=== PATIENT | female | born 1960 | race Caucasian/White ===

== ENCOUNTER 2018-02-28 23:58 | Emergency (ER) | payer BC, OTHER ==
[~2018-02-28] VITALS: Ht 156.2 cm; Wt 71.2 kg
[~2018-02-28 23:58] MED LIST: AMBIEN5 MG PO; ASPIR 8181 MG PO; ASTELIN137 MCG NS; ATORVASTATIN CA20 MG PO; BECONASE AQ25 GM NS; CALCIUM +D & M1 EACH PO; CALCIUM 600 +1 EAC2 PO; CYCLOBENZAPRINE10 MG PO; FLORAJEN460 MG PO; HYDROXYZINE HCL25 MG PO; LAMICTAL100 MG PO; LEVSIN0.125 MG PO; MEDROL DOSE PACK; MEDROL DOSE PACK PO; NASONEX17 GM; PANTOPRAZOLE SO40 MG PO; REFRESH OPTIVE15 ML OU; TYLENOL WITH C1 EACH PO; VALTREX500 MG PO; VITAMIN B-121000 MC2 SL; Z.0.AMITRIPTYLINE H5 PO; Z.0.ATIVAN0.5 MG PO; Z.0.FLOMAX0.4 MG PO; Z.0.FLONASE16 GM; Z.0.PRILOSEC20 MG PO; Z.0.TOPROL XL25 MG PO; ZANTAC150 MG PO; ZOFRAN ODT4 MG SL; ZYRTEC10 M3 PO; [UNRECOGNIZED DRUG - OTHER]
--- OUTSIDE RECORDS SUMMARY | 2018-03-01 00:02 | XMS REPORT | Clinical Summary ---
Author Author CORI [facility] Organization [facility] Address Unknown Phone Unavailable Care Team Providers Care Mica Inspector Name Role Phone [place] Jorge Stewartsantosh SALAS PCP Unavailable Allergies Comments Active Allergy Reactions Severity Noted Date Dizziness, Rash, Headache Nitazoxanide Rash Low 12/13/2014 Sulfamethoxazole-Trimetho Hives High 12/10/2014 prim Bandaids--itching Adhesive Tape 12/13/2014 Hives Ciprofloxacin 12/13/2014 Clindamycin Hcl Hives High 12/10/2014 dizziness Clonazepam (Bulk) 10/29/2015 Dizziness, Rash Dicyclomine 12/13/2014 Severe dizziness Esomeprazole Magnesium Other (See 12/10/2014 Comments) Norfloxacin Hives 12/13/2014 Eggplant (from allergy testing) and Papaya (itching) Other 12/13/2014 Quinolones Hives High 12/10/2014 Hydrocodone-Acetaminophen Rash Low 10/29/2015 Medications End Date Status Medication Sig Dispensed Refills Start Date Active omeprazole (PRILOSEC) 40 Take 40 mg by 0 MG capsule mouth 2 (two) times daily . Active LORazepam (ATIVAN) 0.5 MG Take 0.5 mg 0 tablet by mouth every 8 (eight) hours as needed for Anxiety. Active metoprolol (TOPROL-XL) 25 Take 25 mg by 0 MG 24 hr tablet mouth daily. Active tamsulosin (FLOMAX) 0.4 Take 0.4 mg 0 mg Cp24 24 hr capsule by mouth daily 2 caps QHS . Active azelastine (ASTELIN) 137 2 sprays by 0 mcg (0.1 %) nasal spray Nasal route 2 (two) times daily Use in each nostril as directed . Active cetirizine (ZYRTEC) 10 MG Take 10 mg by 0 tablet mouth daily. Active ranitidine (ZANTAC) 300 Take 300 mg 0 MG tablet by mouth nightly. Active cyanocobalamin, vitamin Take 25 drops 0 B-12, (LIQUID B 12) 1,000 by mouth mcg/15 mL Liqd daily. Active CARBOXYMETHYLCELLULOSE Apply 2 drops 0 SODIUM (REFRESH TEARS to eye(s) OPHT) Each Eye BID . Active CALCIUM CARBONATE/VITAMIN Take by mouth 0 D3 (CALTRATE 600 + D 2 (two) times ORAL) daily. Active hyoscyamine 0.125 mg TbDL Take 0.125 mg 0 disintegrating tablet by mouth every 4 (four) hours as needed. Active zolpidem (AMBIEN) 5 MG Take 5 mg by 0 tablet mouth every night as needed for Insomnia 1-2 tabs at bedtime PRN. Active valACYclovir (VALTREX) Take 500 mg 0 500 MG tablet by mouth 2 (two) times daily as needed for Outbreaks. Active ondansetron (ZOFRAN) 4 MG Take 4 mg by 0 tablet mouth every 6 (six) hours as needed for Nausea . Active sucralfate (CARAFATE) 1 Take 2 g by 0 gram tablet mouth 2 (two) times daily. Active clidinium-chlordiazepoxid Take 1 0 e (LIBRAX) 5-2.5 mg per capsule by capsule mouth 3 (three) times daily. Active atorvastatin (LIPITOR) 40 Take 40 mg by 0 MG tablet mouth daily. Active L ACIDOPHIL/B LACTIS/B Take by 0 LONGUM (FLORAJEN3 ORAL) mouth. Active nabumetone (RELAFEN) 500 Take 500 mg 0 MG tablet by mouth 2 (two) times daily as needed for Pain. Active methocarbamol (ROBAXIN) Take 500 mg 0 500 MG tablet by mouth 2 (two) times daily as needed. Active Problems Problem Noted Date Angina at rest 12/10/2014 History of palpitations 12/10/2014 CHF (congestive heart failure), NYHA class I, chronic, diastolic 12/10/2014 Social History Date Tobacco Use Types Packs/Day Years Used Never Smoker Alcohol Use Drinks/Week oz/Week Comments No Sex Assigned at Date Recorded Not on file Industry Job Start Date Occupation Not on file Not on file Not on file Travel End Travel History Travel Start No recent travel history available. Last Filed Vital Signs Not on file Plan of Treatment Not on file Results Not on fileafter 02/28/2017 Insurance Payer Benefit Subscriber ID Type Phone Address Plan / Group [employer]UE [employer] BCBS ADV xxxxxxxxxxxx [phone] [address] [place] [address] EXCHANGE Advance Directives For more information, please contact: [facility] [address] [place] [address] Date Inactivated Comments Code Status Date Activated 12/13/2014 10:29 PM Full Code 12/13/2014 2:20 PM This code status was determined by: Patient 12/13/2014 2:20 PM Full Code 12/13/2014 11:45 AM This code status was determined by: Patient
--- OUTSIDE RECORDS SUMMARY | 2018-03-01 00:02 | XMS REPORT | Clinical Summary ---
Author Author [facility] Organization [facility] Address Unknown Phone Unavailable Care Team Providers Care Meteorologist In Charge Name Role Phone Asked, No Pcp PCP Unavailable Allergies Comments Active Allergy Reactions Severity Noted Date Dextroamphetamine-Ampheta 01/15/2017 mine Nitazoxanide 01/15/2017 Fexofenadine 01/15/2017 Sulfamethoxazole-Trimetho 01/15/2017 prim Celecoxib 01/15/2017 Ciprofloxacin 01/15/2017 Clindamycin Phosphate 01/15/2017 Codeine phosphate codeine sulfate Codeine 01/15/2017 Dicyclomine 01/15/2017 Psychotic effect Clonazepam 01/15/2017 Lamotrigine 01/15/2017 Pregabalin Rash Low 09/16/2017 Pentobarbital Sodium 01/15/2017 Esomeprazole Magnesium 01/15/2017 Pass out Nifedipine 01/15/2017 Norfloxacin 01/15/2017 Arthrotec 50 Other 01/15/2017 Metoclopramide Hcl 01/15/2017 Mirtazapine 01/15/2017 Metaxalone 01/15/2017 Sulfur 01/15/2017 Psychotic effect Tramadol 01/15/2017 Hydrocodone-Acetaminophen 01/15/2017 Rofecoxib 01/15/2017 Bupropion Hcl 01/15/2017 Medications End Date Status Medication Sig Dispensed Refills Start Date Active sucralfate (CARAFATE) 1 Take 1 g by 0 gram tablet mouth. Active cranberry extract Take by 0 (ELLURA) 200 mg capsule mouth. capsule Active tamsulosin (FLOMAX) 0.4 Take 0.4 mg 0 mg capsule,extended by mouth release 24hr daily. Active HYOSCYAMINE SULFATE ORAL Take by 0 mouth. Active LORAZepam (ATIVAN) 0.5 MG Take 0.5 mg 0 tablet by mouth. 1-2 tab prn Active ONDANSETRON ORAL Take by 0 mouth. Active pantoprazole (PROTONIX) Take 40 mg by 0 40 MG EC tablet mouth daily. Active RANITIDINE HCL ORAL Take by 0 mouth. Active valACYclovir (VALTREX) Take 500 mg 0 500 MG tablet by mouth 2 (two) times a day. Active hydrOXYzine (ATARAX) 25 Take 25 mg by 0 MG tablet mouth daily. Active hydroCHLOROthiazide daily. 0 (HYDRODIURIL) 12.5 MG 8 tablet Active lidocaine (LMX) 5 % cream Apply 1 100 g 1 creamIndications: Sensory application 8 neuropathy, Paresthesia (1 g total) topically 2 (two) times a day. Active calcium carbonate/vitamin Take by 0 D3 (CALTRATE 600 + D mouth. ORAL) Active metoprolol tartrate Take 25 mg by 0 (LOPRESSOR) 25 mg tablet mouth 2 (two) times a day. Active gabapentin (NEURONTIN) Take two cap 450 capsule 2 100 mg at 4 or 5pm, 8 capsuleIndications: and then take Sensory neuropathy two or three at bedtime 12/16/2017 Discontinued RABEprazole (ACIPHEX) 20 Take 20 mg by 0 mg EC tablet mouth daily. 12/16/2017 Discontinued CALCIUM CARBONATE Take 1 tablet 0 (CALCIUM 500 ORAL) by mouth 2 (two) times a day. 12/16/2017 Discontinued dicyclomine (BENTYL) 20 Take 20 mg by 0 mg tablet mouth. 12/16/2017 Discontinued mv,Ca,gfn-JJ-vsyjmw Take 1 tablet 0 no.157 (ESTROVEN MAXIMUM by mouth STRENGTH) 400 mcg tablet daily. 12/16/2017 Discontinued EVENING PRIMROSE OIL ORAL Take 500 mg 0 by mouth. 12/16/2017 Discontinued omega 2-nwf-sec-fish oil Take 1 0 (FISH OIL) 1,000 mg (120 capsule by mg-180 mg) capsule mouth 2 (two) times a day. 12/16/2017 Discontinued flaxseed oil 1,000 mg Take 1 0 capsule capsule by mouth 2 (two) times a day. 12/16/2017 Discontinued fluticasone (FLONASE) 50 2 sprays by 0 mcg/actuation nasal spray Each Nare route daily. 12/16/2017 Discontinued Saccharomyces boulardii Take 250 mg 0 (FLORASTOR) 250 mg by mouth. capsule 12/16/2017 Discontinued chlordiazepoxide-clidiniu Take 1 0 m (LIBRAX, WITH capsule by CLIDINIUM,) 5-2.5 mg per mouth 3 capsule (three) times a day with meals. 12/16/2017 Discontinued clotrimazole-betamethason Apply 1 0 e (LOTRISONE) 1-0.05 % application cream topically 2 (two) times a day. Apply to the affected and surrounding areas of skin 12/16/2017 Discontinued NABUMETONE ORAL Take by 0 mouth. 12/16/2017 Discontinued conjugated estrogens Insert 0.5 g 0 (PREMARIN) 0.625 mg/gram into the vaginal cream vagina 2 (two) times a week. 12/16/2017 Discontinued LACTOBACILLUS ACIDOPHILUS Take by 0 (PROBIOTIC ORAL) mouth. 12/16/2017 Discontinued metoprolol succinate XL Take 50 mg by 0 (TOPROL-XL) 25 mg 24 hr mouth daily. tablet 09/09/2017 Discontinued cilostazol (PLETAL) 50 MG Take 50 mg by 0 tablet mouth 2 (two) times a day. 10/04/2017 Discontinued pregabalin (LYRICA) 50 MG Take 1 30 capsule 1 capsuleIndications: capsule (50 8 Polyneuropathy associated mg total) by with underlying disease mouth every (HCC) evening for 60 days. 10/28/2017 Discontinued gabapentin (NEURONTIN) Take 1 30 capsule 1 300 mg capsule capsule (300 8 mg total) by mouth every evening. 12/16/2017 Discontinued gabapentin (NEURONTIN) Take one cap 90 capsule 2 100 mg capsule at 4 or 5pm 8 and then take two at bedtime 12/16/2017 Discontinued calcium carbonate-vitamin 0.5 tab, PO, 0 D3 600 mg(1,500mg) -800 BID, 0 8 unit tablet Refill(s) 12/21/2017 Discontinued gabapentin (NEURONTIN) Take one cap 90 capsule 2 100 mg at 4 or 5pm 8 capsuleIndications: and then take Sensory neuropathy two at bedtime 12/29/2017 Discontinued gabapentin (NEURONTIN) Take one cap 360 capsule 2 100 mg at 4 or 5pm, 8 capsuleIndications: and then take Sensory neuropathy two or three at bedtime Active Problems Problem Noted Date 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 Ankle swelling 12/16/2017 Other fatigue 12/16/2017 Polyneuropathy associated with underlying disease 09/09/2017 Right carpal tunnel syndrome Idiopathic progressive polyneuropathy Encounters Care Team Description Date Type Specialty Rusty Lutz MD 02/02/2018 Telephone Neurology Rusty Lutz MD 02/01/2018 Telephone Neurology Carito Lee MA 01/30/2018 Telephone Neurology Carito Lee MA 01/12/2018 Telephone Neurology Carito Lee MA Polyneuropathy associated with underlying disease (HCC) (Primary Dx) 01/03/2018 Telephone Neurology Rusty Lutz MD 01/02/2018 Orders Only Neurology Carito Lee MA 01/02/2018 Telephone Neurology Rusty Lutz MD Sensory neuropathy 12/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 Orders Only Neurology Carito Lee MA 12/28/2017 Telephone Neurology Rusty Lutz MD Sensory neuropathy 12/21/2017 Orders Only Neurology Rusty Lutz MD 12/16/2017 Lab Lab Rusty Lutz MD Sensory neuropathy (Primary Dx); Ankle swelling, unspecified laterality; Other fatigue; Numbness and tingling 12/16/2017 Office Visit Neurology Carito Lee MA 12/15/2017 Telephone Neurology Rusty Lutz MD 11/01/2017 Telephone Neurology Rusty Lutz MD 10/30/2017 Telephone Neurology Rusty Lutz MD 10/28/2017 Orders Only Neurology Carito Lee MA 10/28/2017 Telephone Neurology Rusty Lutz MD 10/27/2017 Telephone Neurology Rusty Lutz MD 10/19/2017 Telephone Neurology Julio James MD 10/14/2017 Telephone Gastroenterology Carito Lee MA 10/14/2017 Telephone Neurology Rusty Lutz MD Sensory neuropathy; Paresthesia 10/07/2017 Lab Lab Rusty Lutz MD Sensory neuropathy (Primary Dx); Paresthesia 10/07/2017 Office Visit Neurology Carito Lee MA 10/05/2017 Telephone Neurology Rusty Lutz MD 10/03/2017 Telephone Neurology Meaghan Correa MA 09/16/2017 Telephone Neurology Rusty Lutz MD 09/09/2017 Lab Lab Rusty Lutz MD Polyneuropathy associated with underlying disease (Primary Dx); Lumbar radiculopathy, chronic 09/09/2017 Office Visit Neurology after 02/28/2017 Family History Medical History Relation Name Comments Hypertension Father Atrial fibrillation Mother Breast cancer Mother Heart disease Mother Breast cancer Paternal Aunt Relation Name Status Comments Father Mother Paternal Aunt Social History Date Tobacco Use Types Packs/Day Years Used Never Smoker Smokeless Tobacco: Never Used Alcohol Use Drinks/Week oz/Week Comments No Sex Assigned at Date Recorded Not on file Industry Job Start Date Occupation Not on file Not on file Not on file Travel End Travel History Travel Start No recent travel history available. Last Filed Vital Signs Time Taken Vital Sign Reading 12/16/2017 12:57 PM CDT Blood Pressure 113/63 12/16/2017 12:57 PM CDT Pulse 74 - Temperature - - Respiratory Rate - - Oxygen Saturation - - Inhaled Oxygen - Concentration 12/16/2017 12:57 PM CDT Weight 73 kg (161 lb) 12/16/2017 12:57 PM CDT Height 157.5 cm (5' 2") 12/16/2017 12:57 PM CDT Body Mass Index 29.45 Plan of Treatment Health Maintenance Due Date Last Done Comments SHINGLES VACCINES (1 of 2009 2) COLON CANCER SCREENING 02/28/2017 02/28/2007 INFLUENZA VACCINE 09/28/2017 CERVICAL CANCER SCREENING 06/16/2018 06/17/2015 BREAST CANCER SCREENING 10/07/2018 10/07/2016 Procedures Comments Procedure Name Priority Date/Time Associated Diagnosis MRI BRAIN WO CONTRAST Routine 12/21/2017 Other fatigue 3:37 PM CDT Numbness and tingling BRIAN SCHNEIDER VIRUS DNA, Routine 12/16/2017 Other fatigue QL REAL TIME PCR 1:42 PM CDT HEAVY METALS PANEL, BLOOD Routine 12/16/2017 Sensory neuropathy 1:42 PM CDT PARANEOPLASTIC ANTIBODY, Routine 10/10/2017 WESTERN BLOT 9:27 AM CDT INTERPRETATION (REFLEX Routine 10/10/2017 [facility]) 9:27 AM CDT RQEZ RNA POLYMERASE III Routine 10/10/2017 (NOT ORDERABLE) 9:27 AM CDT CENTROMERE B ANTIBODY Routine 10/10/2017 (NOT ORDERABLE) 9:27 AM CDT SCL-70 ANTIBODY Routine 10/10/2017 9:27 AM CDT ANTINUCLEAR ANTIBODIES Routine 10/10/2017 TITER AND PATTERN 9:27 AM CDT HILDA SCREEN, IFA (NOT Routine 10/10/2017 ORDERABLE) 9:27 AM CDT HEAVY METALS PANEL 3, Routine 10/10/2017 Sensory neuropathy BLOOD 9:27 AM CDT Paresthesia PARANEOPLASTIC ANTIBODY Routine 10/10/2017 Sensory neuropathy EVALUATION W/REFLEX TO 9:27 AM CDT Paresthesia TITER AND WESTERN BLOTC SERUM ELECTROPHORESIS Routine 10/10/2017 Sensory neuropathy 9:27 AM CDT Paresthesia FOLATE LEVEL Routine 10/10/2017 Sensory neuropathy 9:27 AM CDT Paresthesia ANGIOTENSIN CONVERTING Routine 10/10/2017 Sensory neuropathy ENZYME 9:27 AM CDT Paresthesia RHEUMATOID FACTOR Routine 10/10/2017 Sensory neuropathy 9:27 AM CDT Paresthesia SSA/SSB ANTIBODY Routine 10/10/2017 Sensory neuropathy 9:27 AM CDT Paresthesia MYELOPEROXIDASE ANTIBODY Routine 10/10/2017 Sensory neuropathy (MPO) 9:27 AM CDT Paresthesia RIBONUCLEIC ANTIBODY Routine 10/10/2017 Sensory neuropathy (LAUNDRY HOUSEKEEPING AIDE) 9:27 AM CDT Paresthesia HEPATITIS ACUTE PANEL Routine 10/10/2017 Sensory neuropathy 9:27 AM CDT Paresthesia COPPER LEVEL, SERUM Routine 10/10/2017 Sensory neuropathy 9:27 AM CDT Paresthesia CELIAC DISEASE PANEL Routine 10/10/2017 Sensory neuropathy 9:27 AM CDT Paresthesia EMG Routine 09/28/2017 Polyneuropathy associated 12:21 PM CDT with underlying disease Lumbar radiculopathy, chronic CREATINE KINASE, TOTAL Routine 09/09/2017 Polyneuropathy associated (CPK) 12:00 PM CDT with underlying disease VITAMIN B12 LEVEL Routine 09/09/2017 Polyneuropathy associated 12:00 PM CDT with underlying disease THYROID STIMULATING Routine 09/09/2017 Polyneuropathy associated HORMONE 12:00 PM CDT with underlying disease HEMOGLOBIN A1C Routine 09/09/2017 Polyneuropathy associated 12:00 PM CDT with underlying disease after 02/28/2017 Results * MRI Brain Wo Contrast (12/21/2017 3:37 PM CDT) Narrative Performed At [facility] EXAMINATION:MRI BRAIN WO CONTRAST CLINICAL HISTORY:R53.83 Other fatigue, R20.0 Anesthesia of skin, seizures COMPARISON:None. Findings: No intracranial hemorrhage, acute ischemia, extra-axial fluid collections or parenchymal mass lesions. No hydrocephalus. No suspicious focal bone marrow lesions. Major flow voids are maintained. No abnormal susceptibility on [place] imaging. IMPRESSION: No acute intracranial abnormalities or mass lesions. [facility]-[id number] Procedure Note Hm Interface, Radiology Results Incoming - 12/21/2017 5:13 PM CDT EXAMINATION: MRI BRAIN WO CONTRAST CLINICAL HISTORY: R53.83 Other fatigue, R20.0 Anesthesia of skin, seizures COMPARISON: None. Findings: No intracranial hemorrhage, acute ischemia, extra-axial fluid collections or parenchymal mass lesions. No hydrocephalus. No suspicious focal bone marrow lesions. Major flow voids are maintained. No abnormal susceptibility on [place] imaging. IMPRESSION: No acute intracranial abnormalities or mass lesions. [facility]-[id number] Performing Organization Address City/State/Zipcode Phone Number [facility] [address] [place] [address] * Heavy Metals Panel, Blood (12/16/2017 1:42 PM CDT) Arsenic <2 <23 mcg/L [facility] Comment: ANDRADE BARRERA Whole Blood Arsenic Level> 100 mcg/L is indicative of acute/chronic exposure. Urine is usually the best specimen for the analysis of arsenic in body fluids. Blood levels tend to be low even when urine concentrations are high. Mercury, blood 2 <11 mcg/L [facility] Lead, blood <1 <5 mcg/dL [facility] Comment: ZAFARPHU BARRERA Lead: to 6 years: < 5mcg/dL > 6 years: < 5mcg/dL Blood lead levels in the range of 5-9 mcg/dL have been associated with adverse health effects in children aged 6 years and younger. Patient management varies by age and [facility] Blood Lead Level range. Refer to the CDC website regarding Lead Publication/ Case Management for recommended interventions. Lead(B) collection sample [facility] [facility] Specimen Blood Resulting Agency Comment Performing Organization Information: Site ID: [id number] Name: [facility] Address: [address] [place] [phone] Director: Tuan Boyle M.D., Ph.D Performing Organization Address [facility] Centercode Phone Number [facility] [address] [place] [phone] ODESSA * BRIAN SCHNEIDER VIRUS DNA, QL REAL TIME PCR (12/16/2017 1:42 PM CDT) Source EDTA [employer] [facility] EBV DNA, QL PCR NOT DETECTED [employer] Comment: REFERENCE RANGE: NOT DETECTED This test was developed and its analytical performance characteristics have been determined by [facility]. It has not been cleared or approved by FDA. This assay has been validated pursuant to the CLIA regulations and is used for clinical purposes. Resulting Agency Comment Performing Organization Information: Site ID: [id number] Name: [id number] Address: [address] [place] [phone] Director: Eduardo Whitman MD Performing Organization Address City/[facility]/Zipcode Phone Number [facility] [address] [place] [address] [phone] * RQEZ RNA POLYMERASE III (NOT ORDERABLE) (10/10/2017 9:27 AM CDT) RNA polymerase III TNP Units [facility] Comment: [facility]ICS/ZAFAR Test Not Performed. Reflex [facility] testing not required. Resulting Agency Comment Performing Organization Information: Site ID: EZ Name: [facility], Address: [address] [place] [phone] Director: Mayi Francois MD,PhD,CIELO Performing Organization Address [facility] Centercook Phone Number [employer] [facility]/ZAFAR [address] [place] [address] [facility] [id number] * Paraneoplastic antibody, western blot (10/10/2017 9:27 AM CDT) ANNA1 (Hu) Ab, WB <11 <11 SI [facility] ANNA2 (Ri) Ab, WB <11 <11 SI [facility] PCA1 (Yo) Ab, WB <11 <11 SI [facility] CRMP5/CV2 Ab, WB <11 <11 SI [facility] Amphiphysin Ab, WB <11 <11 SI [facility] GAD65 Ab, WB <11 <11 SI [facility] Comment: DIAGNOSTICS/ZAFAR This test was developed and [facility] its analytical performance characteristics have been determined by [facility]. It has not been cleared or approved by FDA. This assay has been validated pursuant to the CLIA regulations and is used for clinical purposes. Resulting Agency Comment Performing Organization Information: Site ID: [id number] Name: [facility], Address: [address] [place] [phone] Director: Mayi Francois MD,PhD,CIELO Performing Organization Address [facility] Centercode Phone Number [employer] [facility] [address] [place] [address] [facility] [id number] * Paraneoplastic Antibody Evaluation w/Reflex to Titer and Western Blot,Basic (10/10/2017 9:27 AM CDT) Tissue IFA observation(s) SEE NOTE [facility] Comment: [facility]ICS/[facility]AFAR Fluorescence observed on [facility] monkey cerebellum substrate. A known pattern associated with specific analytes in this panel was not observed. Staining of HEp2 cells suggests nuclear non-neuronal specific antibodies are present. Testing suggests presence of autoantibodies not included in this panel. Anti-neuronal nuclear Ab, NEGATIVE NEGATIVE [facility] type 1 [facility]/ZAF[facility] Anti-neuronal nuclear Ab, NEGATIVE NEGATIVE [facility] type 2 [facility] Anti-neuronal nuclear Ab, NEGATIVE NEGATIVE [facility] type 3 [facility] PCA1 (Yo) Ab, IFA NEGATIVE NEGATIVE [facility] PCA2 Ab, IFA NEGATIVE NEGATIVE [facility] IMMIGRATION OFFICER Tr (DNER) Ab, IFA NEGATIVE NEGATIVE [facility] AGNA/SOX1 Ab, IFA NEGATIVE NEGATIVE [facility] Amphiphysin Ab NEGATIVE NEGATIVE [facility] CRMP5/CV2 Ab, IFA NEGATIVE NEGATIVE [facility] Comment: [facility]AGNOSTICS/ZAFAR This test was developed and [facility] its analytical performance characteristics have been determined by [facility]. It has not been cleared or approved by [facility]. This assay has been validated pursuant to the CLIA regulations and is used for clinical purposes. Striated muscle Ab, IgG NEGATIVE NEGATIVE [facility] screen Comment: DIAGNOSTICS/ZAFAR This test was developed and [facility] its analytical performance characteristics have been determined by [facility]. It has not been cleared or approved by FDA. This assay has been validated pursuant to the CLIA regulations and is used for clinical purposes. Voltage-gated calcium <30 <30 pmol/L [facility] channel (VGCC) Ab DIAGNOSTICS/[facility] Voltage-gated potassium <80 <80 pmol/L [facility] channel (VGKC) Ab Comment: [employer]/ZAFAR This test was developed and [facility] its analytical performance characteristics have been determined by [facility]. It has not been cleared or approved by FDA. This assay has been validated pursuant to the CLIA regulations and is used for clinical purposes. Acetylcholine receptor <53 <53 pmol/L [facility] ganglionic (alpha 3) Ab Comment: [employer]/[facility]AFAR This test was developed and [facility] its analytical performance characteristics have been determined by [facility]. It has not been cleared or approved by FDA. This assay has been validated pursuant to the CLIA regulations and is used for clinical purposes. Voltage gated calcium <54 <54 pmol/L [facility] channel (VGCC) type N Ab Comment: [employer]/ZAFAR This test was developed and [facility] its analytical performance characteristics have been determined by [facility]. It has not been cleared or approved by FDA. This assay has been validated pursuant to the CLIA regulations and is used for clinical purposes. Acetylcholine receptor <0.30 nmol/L [facility] binding Ab Comment: [employer]/ZAF[facility] Reference Ranges for [facility] Acetylcholine Receptor Binding Antibody: Negative: < or=0.30 nmol/L Equivocal:0.31-0.49 nmol/L Positive: > or=0.50 nmol/L Specimen Blood Resulting Agency Comment Performing Organization Information: Site ID: [id number] Name: [employer] [facility], Address: [address] [place] [phone] Director: Mayi Francois MD,PhD,CIELO Performing Organization Address City/[facility]/Zipcode Phone Number [employer] [address] [place] [address] [facility] [id number] * Myeloperoxidase Antibody (MPO) (10/10/2017 9:27 AM CDT) Myeloperoxidase Ab <1.0 AI [facility] Comment: DIAGNOSTICS-LALO II ValueInterpret ation ----- <1.0 No Antibody Detected > or=1.0 Antibody Detected Autoantibodies to myeloperoxidase (MPO) are commonly associated with the following small-vessel vasculitides: microscopic polyangiitis, polyarteritis nodosa, Churg-Zoë syndrome, necrotizing and crescentic glomerulonephritis and occasionally granulomatosis with polyangiitis (GPA, Winter's). The perinuclear IFA pattern, (p-ANCA) is based largely on autoantibody to myeloperoxidase which serves as the primary antigen. These autoantibodies are present in active disease. Specimen Blood Resulting Agency Comment Performing Organization Information: Site ID: [id number] [facility]: [facility] Address: [address] [place] [address] Director: Dr. Eddie Jones Performing Organization Address [facility] Centercode Phone Number [employer] [address] [facility] [place] [address] II * INTERPRETATION (REFLEX [facility]) (10/10/2017 9:27 AM CDT) Interpretation SEE NOTE [facility] Comment: [facility]/ZAFAR HILDA by IFA on HEp-2 cell SJC substrate was negative for nuclear and cytoplasmic autoantibodies. About 5% or more of systemic sclerosis patients have a negative HILDA IFA (Julio and Augustille. Arthritis Res Ther 2003;5:80-93; Zeeshan et al. Florentino Arthritis Rheum 2015;44:680-686). If clinical suspicion for systemic sclerosis and/or systemic sclerosis overlap syndromes remains, consider testing for analyte specific autoantibodies known to be associated with systemic sclerosis and/or interstitial lung disease, for example, PM-Mtt780, PM-Scl75, CENP A, CENP B, RNA Polymerase III subunit RP11, RNA Polymerase III subunit RP155, U1-snRNP LAUNDRY HOUSEKEEPING AIDE A, U1-snRNP LAUNDRY HOUSEKEEPING AIDE C, U1-snRNP LAUNDRY HOUSEKEEPING AIDE 70kd, U3-snRNP (fibrillarin), Th/To, and/or Scl-70 antibodies. Resulting Agency Comment Performing Organization Information: Site ID: EZ Name: [facility] [facility], Address: [address] [place], [place] [phone] Director: Mayi Francois MD,PhD,CIELO Performing Organization Address City/[facility]/Zipcode Phone Number [employer] [address] [place] [address] [facility] [id number] * CENTROMERE B ANTIBODY (10/10/2017 9:27 AM CDT) Centromere antibody TNP AI [facility] Comment: DIAGNOSTICS/ZAFAR Test Not Performed. Reflex [facility] testing not required. Resulting Agency Comment Performing Organization Information: Site ID: EZ Name: [facility]/[employer] [facility], Address: [address] [place], [place] [phone] Director: Mayi Francois MD,PhD,CIELO Performing Organization Address [facility]/Zipcode Phone Number [employer] [address] [place] [address] [facility] [id number] * Scl-70 antibody (10/10/2017 9:27 AM CDT) Scleroderma SCL-70 Ab TNP AI [facility] Comment: DIAGNOSTICS/ZAFAR Test Not Performed. Reflex [facility] testing not required. Resulting Agency Comment Performing Organization Information: Site ID: EZ Name: [facility], Address: [address] [place] [phone] Director: Mayi Francois MD,PhD,CIELO Performing Organization Address [facility] Phone Number [facility] [address] [place] [address] [facility] [id number] * HILDA SCREEN, IFA (10/10/2017 9:27 AM CDT) HILDA screen NEGATIVE NEGATIVE [facility] Comment: DIAGNOSTICS/[facility]AFAR HILDA IFA is a first line screen [facility] for detecting the presence of up to approximately 150 autoantibodies in various autoimmune diseases. A negative HILDA IFA result suggests HILDA-associated autoimmune diseases are not present at this time. Visit Physician FAQs for interpretation of all antibodies in the [place], prevalence, and association with diseases at http://education.Tagged/faq/YCG404 Resulting Agency Comment Performing Organization Information: Site ID: EZ Name: [facility], Address: [address] [place] [phone] Director: Mayi Francois MD,PhD,CIELO Performing Organization Address [facility] Phone Number [facility] [address] [place] [address] [facility] [address] * Ribonucleic antibody (LAUNDRY HOUSEKEEPING AIDE) (10/10/2017 9:27 AM CDT) Ribonucleic antibody <1.0 NEG <1.0 NEG AI [facility] (LAUNDRY HOUSEKEEPING AIDE[facility] Specimen Blood Resulting Agency Comment Performing Organization Information: Site ID: IG Name: [id number] Address: [address] [facility] [place] [address] Director: Dr. Eddie Jones Performing Organization Address [facility] Phone Number [facility]ST[facility] [phone] [facility] [place] [address] II * ANTINUCLEAR ANTIBODIES TITER AND PATTERN (10/10/2017 9:27 AM CDT) HILDA pattern TNP [facility] Comment: [facility]ICS/ZAFAR Test Not Performed. Reflex [facility] testing not required. Reference Ranges for Anti-Nuclear Ab Titer: <1:40Negative 1:40-1:80Low Antibody Level >1:80Elevated Antibody Level Test Not Performed. Reflex testing not required. Resulting Agency Comment Performing Organization Information: Site ID: EZ Name: [facility], Address: [address] [place] [phone] Director: Mayi Francois MD,PhD,CIELO Performing Organization Address City/[facility] Phone Number [employer] [address] [place], [place] [phone] [facility] [address] * SSA/SSB antibody (10/10/2017 9:27 AM CDT) Sjogren's SS-A antibody <1.0 NEG <1.0 NEG AI [employer] II Sjogren's SS-B antibody <1.0 NEG <1.0 NEG AI [facility] II Specimen Blood Resulting Agency Comment Performing Organization Information: Site ID: IG Name: [id number] Address: [address] [place] [phone] Director: Dr. Eddie Jones Performing Organization Address [facility]ook Phone Number [facility] [place] [address] II * Heavy metals panel 3, blood (10/10/2017 9:27 AM CDT) Cadmium, blood <0.6 <5.1 mcg/L [facility] Comment: ANDRADE BARRERA Adults, Non-Smokers: < or=1.7 mcg/L Adults, Smokers: < or=5.0 mcg/L OSHA Reference Range:< or=5.0 mcg/L Toxic Concentration: Early signs of toxicity have been observed at 30 mcg/L This test was developed and its analytical performance characteristics have been determined by [facility] Andrade Barrera. It has not been cleared or approved by the US Food and Drug Administration. This assay has been validated pursuant to the CLIA regulations and is used for clinical purposes. Specimen Blood Resulting Agency Comment Performing Organization Information: Site ID: SLI Name: [facility] Address: [address] [place] [address] Director: Tuan Boyle M.D., Ph.D Performing Organization Address [facility] Phone Number [employer] [employer] [facility] [address] [place] [address] O[place] * Celiac disease panel (10/10/2017 9:27 AM CDT) Interpretation SEE NOTE [facility] Comment: DI[facility]NOSTICS/[facility] No serological evidence of SJC celiac disease. tTG IgA may normalize in individuals with celiac disease who maintain a gluten-free diet. Consider HLA DQ2 and DQ8 testing to rule out celiac disease. Celiac disease is extremely rare in the absence of DQ2 or DQ8. Tissue transglutaminase <1 U/mL [facility] Ab, IgA Comment: DIAGNOSTICS/[facility] <4 No Antibody SJC Detected > OR=4 Antibody Detected IgA 145 81 - 463 mg/dL [facility] Specimen Blood Resulting Agency Comment Performing Organization Information: Site ID: EZ Name: [facility], Address: [address] [place] [address] Director: Mayi Francois MD,PhD,CIELO Performing Organization Address [facility] Phone Number [employer] [address] [place], [place] [phone] [facility] [address] * Copper level, serum (10/10/2017 9:27 AM CDT) Copper 129 70 - 175 mcg/dL [facility] Comment: ANDRADE BARRERA This test was developed and its analytical performance characteristics have been determined by [facility]. It has not been cleared or approved by the US Food and Drug Administration. This assay has been validated pursuant to the CLIA regulations and is used for clinical purposes. Specimen Blood Resulting Agency Comment Performing Organization Information: Site ID: SLI Name: [facility] Address: [address] [place] [address] Director: Tuan Boyle M.D., Ph.D Performing Organization Address [facility] Phone Number [employer] [facility] [address] [place], [place] [id number] BARRERA * Hepatitis acute panel (10/10/2017 9:27 AM CDT) Hepatitis A IgM NON-REACTIVE NON-REACTIVE [facility] [place] Hepatitis B surface Ag NON-REACTIVE NON-REACTIVE [facility] [place] Hepatitis B core IgM NON-REACTIVE NON-REACTIVE [facility] [place] Hepatitis C Ab NON-REACTIVE NON-REACTIVE [facility] [place] Signal/cutoff 0.01 <1.00 [facility] [place] Specimen Blood Resulting Agency Comment Performing Organization Information: Site ID: RGA [facility]: [id number] Address: [address] [place] [address] Director: Jannette Chavarria Performing Organization Address [facility] Phone Number [email or web address] [address] [address] * Rheumatoid factor (10/10/2017 9:27 AM CDT) Rheumatoid factor <14 <14 IU/mL [facility] [place] Specimen Blood Resulting Agency Comment Performing Organization Information: Site ID: RGA [facility]: [id number] Address: [address] [place] [phone] Director: Jannette Chavarria Performing Organization Address [facility] Phone Number [email or web address] [place] [phone] * Angiotensin converting enzyme (10/10/2017 9:27 AM CDT) Angiotensin converting 60 9 - 67 U/L Rounds enzyme [employer] Specimen Blood Resulting Agency Comment Performing Organization Information: Site ID: IG Name: [id number] Address: [address] [place] [phone] Director: Dr. Eddie Jones Performing Organization Address City/[facility] Cent[facility]ode Phone Number [facility] [address] [address] II * Serum electrophoresis (10/10/2017 9:27 AM CDT) Protein 6.4 6.1 - 8.1 g/dL [employer] II Albumin, S 3.8 3.8 - 4.8 g/dL [employer] II Gureh-0-rkgshmzp 0.3 0.2 - 0.3 g/dL [facility] II Olbxb-8-peuuhszd 0.8 0.5 - 0.9 g/dL [facility] II Beta-1 globulin 0.4 0.4 - 0.6 g/dL [facility] II Beta-2 globulin 0.3 0.2 - 0.5 g/dL [facility] II Gamma, CSF 0.8 0.8 - 1.7 g/dL [facility] II Interpretation Comment: [facility] Normal Electrophoretic Pattern [employer]-[place] II Specimen Blood Resulting Agency Comment Performing Organization Information: Site ID: IG Name: [id number] Address: [address] [place] [phone] Director: Dr. Eddie Jones Performing Organization Address City/[facility] Centercode Phone Number [facility] [address] II * Folate level (10/10/2017 9:27 AM CDT) Folate 18.0 ng/mL [facility] Comment: [place] Reference Range Low: <3.4 Borderline:3.4-5.4 Normal:>5.4 Specimen Blood Resulting Agency Comment Performing Organization Information: Site ID: RGA [facility]: [id number] Address: [address] [place] [phone] Director: Jannette Chavarria Performing Organization Address [facility] Phone Number [facility] [address] [address] * EMG General Request (09/28/2017 12:21 PM CDT) Impressions Performed At The patient comes in for an EMG of arms and leg. She is tingling and numbness in the feet and aching discomfort in the right forearm. 1) Motor latencies, amplitudes and velocities are normal 2) F Wave responses are normal 3) Sensory responses are absent in the left leg. 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 Cristhian Alvarez Department of Neurology [address] [place], [place] Office: [phone] Narrative Performed At NERVE CONDUCTION AND ELECTROMYOGRAPHY REPORT [facility] [place]; [place], [place] [address]; Name: Fady Morocho Date of Procedure: 09/28/17 Sex: female Date of :1960 Referring Physician: MD Nettie Ht:5 foot 2 Wt: 158 Temp:31.4/33.8; 31.0/32.2 Nerve Conduction(Latencies in msec, Amplitudes uV, Distance cm, Velocity M/Sec) Right Motor Nerves Dist. Lat. Prox lat. D. amp. P. Amp.Dist. Velocity Right Median4.07.59.5 9.219.5 56 Right Ulnar (below elb) 3.05.07.3 6.813 65 Right Ulnar (across elb) 7.4 6.315.5 64 Right Radial2.65.86.3 5.919 58 Right Median F Wave 25 Right Ulnar F Wave 26.3 Right Sensory Nerves Dist. Lat. Prox lat. Dist. amp. Prox Amp. Distance Velocity Right Median Palmar 2.4* 67 8.0 Right Median Digital 3.5 27 13.0 Right Ulnar2.5 31 11.0 Right Super. Radial 2.4 39.7 10.0 Left Motor Nerves Dist. Lat. Prox lat. D. amp. P. Amp.Dist. Velocity Left Median3.47.08.8 8.820 57 Left Ulnar (below elb) 2.95.28 813.5 60 Left Ulnar (across elb) 7.3 7.814.5 6 7 Left Radial2.56.05.1 4.921 61 Left Median F Wave 25.1 Left Ulnar F Wave 25.9 Left Sensory Nerves Dist. Lat. Prox lat. Dist. amp. Prox Amp. Distance Velocity Left Median Palmar 2.1 68 8.0 Left Median Digital 3.0 29.7 13.0 Left Ulnar2.5 28 11.0 Left Super. Radial 2.6 27 10.0 Left Motor Nerves Dist. Lat. Prox lat. D. amp. P. Amp.Dist. Velocity Left Peroneal EDB 4.810.98.7 2.930 49 Left Peroneal TA Left Tibial4.112.16.9 5.632 40 Left Peroneal F Wave 57.7 Left Tibial F Wave 45 Left Sensory Nerves Dist. Lat. Prox lat. Dist. amp. Prox Amp. Distance Velocity Left Fvdauhztqko89.0 Left Superficial Peroneal aupyez37.0 Left Saphenousabsent Right Soleus (H Reflex Response Latency): 30.8 Left Soleus (H Reflex Response Latency): 30.7 Electromyography (Motor Unit in mV; H=High; L=Low; P=Polyphasic; NS=Non-specific) Right ArmFibs. Pos. Waves Fasc. PolyphasiaMotor UnitsRecruitment Deltoid wnl wnlwnl wnlwnlwnl Biceps wnl wnlwnl wnlwnlwnl Triceps wnl wnlwnl wnlwnlwnl Brachioradialis wnl wnlwnl wnlwnlwnl lst D. Interosseous wnl wnlwnl wnlwnlwnl Left LegFibs. Pos. Waves Fasc. PolyphasiaMotor UnitsRecruitment Vas. Medialiswnl wnlwnl wnlwnlwnl Ant. Tibialiswnl wnlwnl wnlwnlwnl Peroneus Longus wnl wnlwnl wnlwnlwnl Vas. Lateraliswnl wnlwnl wnlwnlwnl Ext. Hallicus L. wnl wnlwnl 20HPwnl-1 * Thyroid stimulating hormone (09/09/2017 12:00 PM CDT) TSH 1.03 0.40 - 4.50 mIU/L [facility] [place] Specimen Blood Narrative Performed At FASTING: UNKNOWN [facility] Resulting Agency Comment Performing Organization Information: Site ID: RGA [facility]: [id number] Address: [address] [place] [phone] Director: Jannette Chavarria Performing Organization Address City/State/Zipcode Phone Number [email or web address] [address] [address] * Hemoglobin A1c (09/09/2017 12:00 PM CDT) Hemoglobin A1C 5.3 <5.7 % of total Hgb [facility] Comment: [place] For the purpose of screening for the presence of diabetes: <5.7% Consistent with the absence of diabetes 5.7-6.4%Consistent with increased risk for diabetes (predi abetes) > or=6.5%Consistent with diabetes This assay result is consistent with a decreased risk of diabetes. Currently, no consensus exists regarding use of hemoglobin A1c for diagnosis of diabetes in children. According to [place] Diabetes Association (ADA) guidelines, hemoglobin A1c <7.0% represents optimal control in non- diabetic patients. Different metrics may apply to specific patient populations. Standards of Medical Care in Diabetes(ADA). Specimen Blood Narrative Performed At FASTING: UNKNOWN [facility] Resulting Agency Comment Performing Organization Information: Site ID: RGA [facility]: [id number] Address: [address] [place] [address] Director: Jannette Chavarria Performing Organization Address [facility] Centercode [email or web address] [address] * Vitamin B12 level (09/09/2017 12:00 PM CDT) Vitamin B12 528 200 - 1,100 pg/mL [facility] [place] Specimen Blood Narrative Performed At FASTING: UNKNOWN [facility] Resulting Agency Comment Performing Organization Information: Site ID: RGA Name: [facility] Address: [address] [place] [phone] Director: Jannette Chavarria Performing Organization Address [facility] Cent[facility] [email or web address] [address] * Creatine kinase, total (CPK) (09/09/2017 12:00 PM CDT) Creatine kinase 68 29 - 143 U/L [facility] [place] Specimen Blood Narrative Performed At FASTING: UNKNOWN [facility] Resulting Agency Comment Performing Organization Information: Site ID: RGA Name: [id number] Address: [address] [place] [phone] Director: Jannette Chavarria Performing Organization Address [facility]erc[facility] Phone Number [email or web address] [address] [address] after 02/28/2017 Insurance Payer Benefit Subscriber ID Type Phone Address Plan / Group [employer] [facility] xxxxxxxxxxxx Exchange EXCHANGE [employer] EXCHANGE [employer] E Advance Directives Patient has advance care planning documents on file. For more information, melanie frost contact: Antonio Tijerina [address] [place] [address]
--- OUTSIDE RECORDS SUMMARY | 2018-03-01 00:03 | XMS REPORT | Continuity of Care Document ---
Author Author [facility] Interface Address Unknown Phone Unavailable Problems Problem Status Onset Date Classification Date Reported Comments Source C/O EDEMA Active 12/20/2017 [facility] EDEMA LEGS Active 10/24/2017 [facility] ALLERGIC REACTION Active 09/16/2017 [facility] Dizziness and giddiness 06/07/2017 09/05/2017 [facility] Episodic lightheadedness 05/30/2017 09/05/2017 [facility] RASH Active 05/30/2017 [facility] CHEST PAIN Active 04/13/2017 [facility] FOLLOW UP Active 04/11/2017 [facility] PROLAPSE MV, RBBB, TACHYCARDIA Active 02/28/2017 [facility] Discharge Diagnosis: Anxiety 02/01/2017 02/04/2017 [facility] Discharge Diagnosis: Shortness of breath 02/01/2017 02/04/2017 [facility] SOB Active 01/31/2017 [facility] Discharge Diagnosis: Abdominal pain 11/29/2016 12/02/2016 [facility] Discharge Diagnosis: Chest pain 11/29/2016 12/02/2016 [facility] Discharge Diagnosis: Heart palpitations 11/27/2016 11/30/2016 [facility] Chest pain, unspecified 08/10/2017 [facility] Palpitations 08/10/2017 [facility] Anxiety Resolved Problem 09/05/2017 [facility] Depression Resolved Problem 09/05/2017 [facility] GERD - Gastro-esophageal reflux disease Resolved Problem 09/05/2017 [facility] Pancreatitis Resolved Problem 09/05/2017 [facility] PAT (<span ID="[id number]">Confirmed</span>) Active Problem 09/05/2017 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 [facility] HTN (<span ID="[id number]">Confirmed</span>)<sup>2</sup> Resolved Problem 09/05/2017 off and on htn [facility] IBS (<span ID="[id number]">Confirmed</span>) Active Problem 09/05/2017 [facility] MVP (<span ID="[id number]">Confirmed</span>) Active Problem 09/05/2017 [facility] Anxiety disorder, unspecified 08/10/2017 [facility] Hyperlipidemia, unspecified 08/10/2017 [facility] Essential hypertension 09/05/2017 [facility] Nonrheumatic mitral prolapse 09/05/2017 [facility] Supraventricular tachycardia 09/05/2017 [facility] Nonspecific intraventricular block 09/05/2017 [facility] Palpitations Active Problem 09/05/2017 [facility] Medications Medication Details Route Status Patient Instructions Ordering Provider Order Date Source gabapentin 100 MG Oral Capsule 100 mg=1 cap, PO, TID, 0 Refill(s) Active 07/23/2017 [facility] atorvastatin 10 MG Oral Tablet [Lipitor] 10 mg=1 tab, PO, Daily, Repeat labs in 3 months, # 90 tab, 0 Refill(s), Pharmacy: [id number], For Refill request please fax to [phone]. E-script request not accepted. Active 06/22/2017 [facility] atorvastatin 10 MG Oral Tablet [Lipitor] 10 mg=1 tab, PO, Daily, X 7 day, # 7 tab, 0 Refill(s), Pharmacy: [id number], For Refill request please fax to [phone]. E-script request not accepted. No Longer Active 06/17/2017 [facility] Sodium Chloride 0.9% (Bolus) IV 1,000 mL, Infuse Over: 1 hr, Route: IV, ONCE, Priority: STAT, Dosing Weight 70 kg, Start date: 05/30/17 19:43:00 CDT, Stop date: 05/30/17 19:43:00 CDT Inactive 05/31/2017 [facility] Calcium Carbonate 1500 MG / Cholecalciferol 800 UNT Oral Tablet [Caltrate Plus D 600/800] 0.5 tab, PO, BID, 0 Refill(s) Active 05/03/2017 [facility] magnesium oxide 500 mg oral tablet 250 mg=0.5 tab, PO, Daily, 0 Refill(s) Active 05/03/2017 [facility] Imdur 30 mg oral tablet, extended release 30 mg=1 tab, PO, QAM, # 30 tab, 11 Refill(s), Pharmacy: [id number], For Refill request please fax to [phone]. E-script request not accepted. Active 04/22/2017 [facility] valacyclovir 500 MG Oral Tablet [Valtrex] 0 Refill(s) Active 04/18/2017 [facility] ondansetron 4 mg oral tablet PO, PRN, 0 Refill(s) Active 04/18/2017 [facility] hyoscyamine 0.125 mg oral tablet PO, Q4H, 0 Refill(s) Active 04/18/2017 [facility] Hydroxyzine Hydrochloride 25 MG Oral Tablet 25 mg=1 tab, PO, Bedtime, PRN itching, # 30 tab, 0 Refill(s) Active 03/04/2017 [facility] pantoprazole 40 mg oral enteric coated tablet 40 mg=1 tab, PO, BID, # 90 tab, 0 Refill(s) Active 03/04/2017 [facility] azelastine / fluticasone 1 spray, NASAL, BID, 0 Refill(s) Active 03/04/2017 [facility] metoprolol tartrate 25 mg oral tablet 25 mg=1 tab, PO, BID, # 60 tab, 0 Refill(s) Active 03/04/2017 [facility] Bifidobacterium lactis [id number] UNT / Bifidobacterium longum [id number] UNT / Lactobacillus acidophilus [id number] UNT Oral Capsule [Florajen3] 1 cap, PO, Daily, 0 Refill(s) Active 03/04/2017 [facility] tamsulosin 0.4 mg oral capsule 0.4 mg=1 cap, PO, Daily, # 90 cap, 0 Refill(s) Active 03/04/2017 [facility] Refresh Dry Eye Therapy 1 drp, BOTH EYES, BID, 0 Refill(s) Active 03/04/2017 [facility] LORazepam 0.5 mg oral tablet 1 mg=2 tab, PO, TID, PRN Anxiety, # 20 tab, 0 Refill(s) Active 03/04/2017 [facility] Estradiol 0.1 MG/ML Vaginal Cream [Estrace] See Instructions, Insert 2-4 gm vaginally at bedtime nightly x 2 weeks then reduce dose, # 1 tube, 3 Refill(s) Active 03/04/2017 [facility] Zantac 300 300 mg, PO, Bedtime, 0 Refill(s) Active 03/04/2017 [facility] Saline Flush 0.9% 10 mL, Route: IVP, Drug Form: INJ, Dosing Weight 71.818, kg, PRN, PRN Line Flush, Start date: 02/01/17 0:15: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, Duration: 30 day, Stop date: 03/03/17 0:14:00 CSTNotes: (Same as: BD Posiflush) Inactive 02/01/2017 [facility] GI cocktail 30 mL, Route: PO, Dosing Weight 71.818, kg, ONCE, STAT, Start date: 11/29/16 3:56:00 CDT, Stop date: 11/29/16 3:56:00 CDT Inactive 11/29/2016 [facility] Metoclopramide 10 mg, Route: IVP, Drug form: INJ, ONCE, Dosing Weight 71.818, kg, Priority: STAT, Start date: 11/29/16 3:56:00 CDT, Stop date: 11/29/16 3:56:00 CDT Inactive 11/29/2016 [facility] Aspirin 325 mg, Route: PO, Drug form: TAB, ONCE, Dosing Weight 71.818, kg, Priority: STAT, Start date: 11/29/16 3:56:00 CDT, Stop date: 11/29/16 3:56:00 CDT Inactive 11/29/2016 [facility] Ativan 1 mg, Route: IVP, Drug form: INJ, ONCE, Dosing Weight 71.818, kg, Priority: STAT, Start date: 11/29/16 3:56:00 CDT, Stop date: 11/29/16 3:56:00 CDT Inactive 11/29/2016 [facility] Sodium Chloride 0.9% (Bolus) IV 1,000 mL, Infuse Over: 1 hr, Route: IV, ONCE, Priority: STAT, Dosing Weight 71.818 kg, Start date: 11/29/16 3:56:00 CDT, Duration: 1 doses or times, Stop date: 11/29/16 3:56:00 CDT Inactive 11/29/2016 [facility] Aspirin 324 mg, 4 tab, Route: PO, Drug form: [place], ONCE, Dosing Weight 72.727, kg, Priority: STAT, Start date: 11/27/16 1:28:00 CDT, Stop date: 11/27/16 1:28:00 CDTNotes: Take with food. Inactive 11/27/2016 [facility] Saline Flush 0.9% 10 mL, Route: IVP, Drug Form: INJ, Dosing Weight 72.727, kg, PRN, PRN Line Flush, Start date: 11/27/16 1:28:00 CDT, Duration: 30 day, Stop date: 12/27/16 1:27:00 CDTNotes: (Same as: BD Posiflush) Inactive 11/27/2016 [facility] Allergies, Adverse Reactions, Alerts Substance Category Reaction Severity Reaction type Status Date Reported Comments Source sulfa drugs Assertion Drug allergy Active [facility] ciprofloxacin Assertion Drug allergy Active [facility] doxycycline Assertion Drug allergy Active [facility] clindamycin Assertion Clindamycin, Clindamycin Drug allergy Active [facility] Keflex Assertion Drug allergy Active [facility] Noroxin Assertion Drug allergy Active [facility] Bactrim Assertion Drug allergy Active [facility] Vicodin Assertion Drug allergy Active [facility] LaMICtal Assertion Drug allergy Active [facility] Augmentin Assertion Drug allergy Active [facility] Immunizations Immunization Date Given Site Status Last Updated Comments Source Results Order Name Results Value Reference Range Date Interpretation Comments Source URINE AND STOOL POC UA Bili Negative *NA* (07/22/17 7:40 PM) Negative 07/23/[facility] URINE AND STOOL POC UA Bld Trace *NA* (07/22/17 7:40 PM) Negative 07/23/2017 [facility] URINE AND STOOL POC UA Uro 0.2 EU/dL 0.1 - 1.0 07/23/2017 [facility] URINE AND STOOL POC UA Glu Negative mg/dL Negative mg/dL 07/23/2017 [facility] URINE AND STOOL POC UA Ket Negative mg/dL Negative mg/dL 07/23/2017 [facility] URINE AND STOOL POC UA LeukEst Negative *NA* (07/22/17 7:40 PM) Negative 07/23/2017 [facility] URINE AND STOOL POC UA Nit Negative *NA* (07/22/17 7:40 PM) Negative 07/23/2017 [facility] URINE AND STOOL POC UA Prot Negative mg/dL Negative mg/dL 07/23/2017 [facility] URINE AND STOOL POC UA pH 7.0 5.0 - 8.0 07/23/2017 [facility] URINE AND STOOL POC UA Color Yellow *NA* (07/22/17 7:40 PM) Yellow 07/23/2017 [facility] URINE AND STOOL POC UA Turbidity Clear *NA* (07/22/17 7:40 PM) Clear 07/23/2017 [facility] URINE AND STOOL POC UA SG 1.020 <=1.030 07/23/2017 [facility] Abdomen 2 views DX Abdomen 2 views DX Procedure: Abdominal Radiograph. Clinical Indication: New onset right upper quadrant pain, status post cholecystectomy. Comparison: None. FINDINGS: A supine radiograph of the abdomen in 4 views demonstrates a nonspecific bowel gas pattern without definitive bowel obstruction or free intraperitoneal air. There are surgical clips in the right upper quadrant likely postcholecystectomy. A surgical clip projects in the midline pelvis. Degenerative change involves the lumbar spine. There are calcified phleboliths in the pelvis. IMPRESSION: 1. Unremarkable abdominal radiograph. SL:[id number] 07/22/2017 - - Read by: Mynor Gil MD Dictated Date/time: 07/22/17 20:53 Electronically Signed by: Mynor Gil MD 07/22/17 20:54 FINAL REPORT [facility] CARDIAC ENZYMES Troponin-I null 0.00 - 0.40 05/31/2017 [facility] CARDIAC ENZYMES Total CK 70 unit/L 12 - 191 05/31/2017 [facility] CHEM PANEL Lipase Lvl 182 unit/L 73 - 393 05/31/2017 [facility] ELECTROLYTES AGAP 7.7 meq/L 10.0 - 20.0 05/31/2017 [facility] ELECTROLYTES A/G Ratio 0.9 0.7 - 1.6 05/31/2017 [facility] ELECTROLYTES Globulin 3.7 g/dL 2.7 - 4.2 05/31/2017 [facility] ELECTROLYTES B/C Ratio 15 6 - 25 05/31/2017 [facility] ELECTROLYTES eGFR 73 mL/min/1.73m2 05/31/2017 Result Comment: The eGFR is calculated using the CKD-EPI formula. In most young, healthy individuals the eGFR will be >90 mL/min/1.73m2. The eGFR declines with age. An eGFR of 60-89 may be normal in some populations, particularly the elderly, for whom the CKD-EPI formula has not been extensively validated. Use of the eGFR is not recommended in the following populations: Individuals with unstable creatinine concentrations, including patients and those with serious co-morbid conditions. Patients with extremes in muscle mass or diet. The data above are obtained from the National Kidney Disease Education Program (NKDEP) which additionally recommends that when the eGFR is used in patients with extremes of body mass index for purposes of drug dosing, the eGFR should be multiplied by the estimated BMI. [facility] ELECTROLYTES Alk Phos 66 unit/L 39 - 136 05/31/2017 [facility] ELECTROLYTES Bili Total 0.2 mg/dL 0.2 - 1.3 05/31/2017 [facility] ELECTROLYTES AST 19 unit/L 0 - 37 05/31/2017 [facility] Total Protein 7.1 g/dL 6.4 - 8.4 05/31/2017 [facility] ELECTROLYTES Albumin Lvl 3.4 g/dL 3.5 - 5.0 05/31/2017 [facility] ELECTROLYTES ALT 26 unit/L 0 - 65 05/31/2017 [facility] ELECTROLYTES BUN 13 mg/dL 7 - 22 05/31/2017 [facility] ELECTROLYTES Glucose Lvl 73 mg/dL 70 - 99 05/31/2017 [facility] ELECTROLYTES CO2 33 meq/L 24 - 32 05/31/2017 [facility] ELECTROLYTES Potassium Lvl 3.7 meq/L 3.5 - 5.1 05/31/2017 [facility] ELECTROLYTES Chloride Lvl 107 meq/L 95 - 109 05/31/2017 [facility] ELECTROLYTES Sodium Lvl 144 meq/L 135 - 145 05/31/2017 [facility] ELECTROLYTES Calcium Lvl 9.4 mg/dL 8.5 - 10.5 05/31/2017 [facility] ELECTROLYTES Creatinine Lvl 0.87 mg/dL 0.50 - 1.40 05/31/2017 [facility] HEMATOLOGY Eosinophils # 0.1 K/CMM 0.0 - 0.5 05/31/2017 [facility] HEMATOLOGY Monocytes # 0.4 K/CMM 0.0 - 0.8 05/31/2017 [facility] HEMATOLOGY Lymphocytes # 2.0 K/CMM 1.0 - 5.5 05/31/2017 [facility] HEMATOLOGY Segs-Bands # 2.9 K/CMM 1.5 - 8.1 05/31/[address] [facility] Basophils 0.9 % 0.0 - 1.0 05/31/[address] [facility] Eosinophils 2.3 % 0.0 - 4.0 05/31/[address] [facility] Monocytes 6.9 % 2.0 - 12.0 05/31/[address] [facility] Lymphocytes 36.6 % 20.0 - 40.0 05/31/[address] [facility] Segs 53.3 % 45.0 - 75.0 05/31/[address] [facility] MPV 8.9 fL 7.4 - 10.4 05/31/[address] [facility] Platelet 242 K/CMM 133 - 450 05/31/[address] [facility] RDW 13.8 % 11.5 - 14.5 05/31/[address] [facility] MCHC 34.5 g/dL 32.0 - 36.0 05/31/[address] [facility] MCH 31.2 pg 27.0 - 31.0 05/31/[address] [facility] MCV 90.6 fL 80.0 - 98.0 05/31/[address] [facility] Hct 39.8 % 36.0 - 48.0 05/31/[address] [facility] Hgb 13.7 g/dL 12.0 - 16.0 05/31/[address] [facility] RBC 4.39 M/CMM 4.20 - 5.40 05/31/[address] [facility] WBC 5.4 K/CMM 3.7 - 10.4 05/31/2017 [facility] URINE AND STOOL UA Urobilinogen <=1.0 mg/dL 0.1 - 1.0 05/30/2017 [facility] URINE AND STOOL UA Color Ltyellow 05/30/2017 [facility] URINE AND STOOL UA Nitrite Negative (4/2/18 6:42 PM) Negative 05/30/2017 [facility] URINE AND STOOL UA Ketones Negative mg/dL Negative mg/dL 05/30/2017 [facility] URINE AND STOOL UA Blood Negative (05/30/17 6:42 PM) Negative 05/30/2017 [facility] URINE AND STOOL UA WBC null 0 - 5 05/30/2017 [facility] URINE AND STOOL UA Bacteria Occasional /HPF None Seen /HPF 05/30/2017 [facility] URINE AND STOOL UA Sq Epi Occasional /LPF Few /LPF 05/30/2017 [facility] URINE AND STOOL UA RBC 1 /HPF 0 - 2 05/30/2017 [facility] URINE AND STOOL UA Leuk Est Negative (05/30/17 6:42 PM) Negative 05/30/2017 [facility] URINE AND STOOL UA Bili Negative *NA* (05/30/17 6:42 PM) Negative 05/30/2017 [facility] URINE AND STOOL UA Spec Grav 1.005 <=1.030 05/30/2017 [facility] URINE AND STOOL UA Turbidity Clear (05/30/17 6:42 PM) Clear 05/30/2017 [facility] URINE AND STOOL UA Protein Negative mg/dL Negative mg/dL 05/30/2017 [facility] URINE AND STOOL UA Glucose Negative mg/dL Negative mg/dL 05/30/2017 [facility] URINE AND STOOL UA pH 7.0 5.0 - 8.0 05/30/2017 [facility] Chest 2 views DX Chest 2 views DX EXAM: XR CHEST 2 VIEW DATE: 05/30/2017 7:42 PM CDT INDICATION: Lightheadedness. COMPARISON: None Available. TECHNIQUE: PA and lateral views of the chest were obtained. FINDINGS: No focal consolidation or pneumothorax is identified. The cardiomediastinal silhouette is within normal limits. The costophrenic recesses are sharp and without effusion. No acute osseous abnormality is noted. IMPRESSION: No acute cardiopulmonary abnormality. SL: [id number] 05/30/2017 - - Read by: Georges Awan MD Dictated Date/time: 05/30/17 20:17 Electronically Signed by: Georges Awan MD 05/30/17 20:18 FINAL REPORT [facility] URINE AND STOOL UA Sq Epi None Seen 02/01/2017 [facility] URINE AND STOOL UA RBC null 0 - 2 02/01/2017 [facility] URINE AND STOOL UA WBC null 0 - 5 02/01/2017 [facility] URINE AND STOOL UA Urobilinogen <=1.0 mg/dL 0.1 - 1.0 02/01/2017 [facility] URINE AND STOOL UA Color Ltyellow 02/01/2017 [facility] URINE AND STOOL UA pH 7.0 5.0 - 8.0 02/01/2017 [facility] URINE AND STOOL UA Protein Negative mg/dL Negative mg/dL 02/01/2017 [facility] URINE AND STOOL UA Spec Grav 1.006 <=1.030 02/01/2017 [facility] URINE AND STOOL UA Glucose Negative mg/dL Negative mg/dL 02/01/2017 [facility] URINE AND STOOL UA Ketones Negative mg/dL Negative mg/dL 02/01/2017 [facility] URINE AND STOOL UA Nitrite Negative (02/01/17 1:08 AM) Negative 02/01/2017 [facility] URINE AND STOOL UA Bili Negative *NA* (02/01/17 1:08 AM) Negative 02/01/2017 [facility] URINE AND STOOL UA Leuk Est Negative (02/01/17 1:08 AM) Negative 02/01/2017 [facility] URINE AND STOOL UA Blood Negative (02/01/17 1:08 AM) Negative 02/01/2017 [facility] URINE AND STOOL UA Turbidity Clear (02/01/17 1:08 AM) Clear 02/01/2017 [facility] CARDIAC ENZYMES Total CK 77 unit/L 12 - 191 02/01/2017 [facility] CARDIAC ENZYMES CK MB 0.7 ng/mL 0.5 - 3.6 02/01/2017 [facility] CARDIAC ENZYMES Troponin-I null 0.00 - 0.40 02/01/2017 [facility] CARDIAC ENZYMES BNP 59 pg/mL <=100 pg/mL 02/01/2017 [facility] CARDIAC ENZYMES CK MB Index 0.9 0.0 - 2.5 02/01/2017 [facility] CHEM PANEL Lipase Lvl 155 unit/L 73 - 393 02/01/2017 [facility] CHEM PANEL eGFR 89 mL/min/1.73m2 02/01/2017 Result Comment: The eGFR is calculated using the CKD-EPI formula. In most young, healthy individuals the eGFR will be >90 mL/min/1.73m2. The eGFR declines with age. An eGFR of 60-89 may be normal in some populations, particularly the elderly, for whom the CKD-EPI formula has not been extensively validated. Use of the eGFR is not recommended in the following populations: Individuals with unstable creatinine concentrations, including patients and those with serious co-morbid conditions. Patients with extremes in muscle mass or diet. The data above are obtained from the National Kidney Disease Education Program (NKDEP) which additionally recommends that when the eGFR is used in patients with extremes of body mass index for purposes of drug dosing, the eGFR should be multiplied by the estimated BMI. [facility] CHEM PANEL CO2 26 meq/L 24 - 32 02/01/2017 [facility] CHEM PANEL Chloride Lvl 109 meq/L 95 - 109 02/01/2017 [facility] CHEM PANEL Potassium Lvl 3.9 meq/L 3.5 - 5.1 02/01/2017 [facility] CHEM PANEL Sodium Lvl 142 meq/L 135 - 145 02/01/2017 [facility] CHEM PANEL BUN 10 mg/dL 7 - 22 02/01/2017 [facility] CHEM PANEL Creatinine Lvl 0.74 mg/dL 0.50 - 1.40 02/01/2017 [facility] CHEM PANEL Alk Phos 67 unit/L 39 - 136 02/01/2017 [facility] CHEM PANEL Bili Total 0.3 mg/dL 0.2 - 1.3 02/01/2017 [facility] CHEM PANEL ALT 32 unit/L 0 - 65 02/01/2017 [facility] CHEM PANEL AST 25 unit/L 0 - 37 02/01/2017 [facility] CHEM PANEL Calcium Lvl 8.9 mg/dL 8.5 - 10.5 02/01/2017 [facility] CHEM PANEL Albumin Lvl 3.1 g/dL 3.5 - 5.0 02/01/2017 [facility] CHEM PANEL Total Protein 7.1 g/dL 6.4 - 8.4 02/01/2017 [facility] CHEM PANEL Globulin 4.0 g/dL 2.7 - 4.2 02/01/2017 [facility] CHEM PANEL A/G Ratio 0.8 0.7 - 1.6 02/01/2017 [facility] CHEM PANEL AGAP 10.9 meq/L 10.0 - 20.0 02/01/2017 [facility] CHEM PANEL B/C Ratio 14 6 - 25 02/01/2017 [facility] CHEM PANEL Glucose Lvl 101 mg/dL 70 - 99 02/01/2017 [facility] HEMATOLOGY MCV 88.2 fL 80.0 - 98.0 02/01/2017 [facility] HEMATOLOGY RBC 4.37 M/CMM 4.20 - 5.40 02/01/[address] [facility] Hct 38.6 % 36.0 - 48.0 02/01/[address] [facility] Hgb 13.1 g/dL 12.0 - 16.0 02/01/[address] [facility] MCH 30.0 pg 27.0 - 31.0 02/01/[address] [facility] RDW 14.4 % 11.5 - 14.5 02/01/[address] [facility] MCHC 34.0 g/dL 32.0 - 36.0 02/01/[address] [facility] MPV 8.7 fL 7.4 - 10.4 02/01/[address] [facility] Platelet 243 K/CMM 133 - 450 02/01/[address] [facility] WBC 5.1 K/CMM 3.7 - 10.4 02/01/[address] [facility] Segs 50.7 % 45.0 - 75.0 02/01/[address] [facility] Monocytes 7.9 % 2.0 - 12.0 02/01/2017 [facility] Lymphocytes # 1.8 K/CMM 1.0 - 5.5 02/01/[address] [facility] Lymphocytes 36.2 % 20.0 - 40.0 02/01/[address] [facility] Segs-Bands # 2.6 K/CMM 1.5 - 8.1 02/01/[address] [facility] Basophils 0.8 % 0.0 - 1.0 02/01/[address] [facility] Eosinophils 4.4 % 0.0 - 4.0 02/01/[address] [facility] Monocytes # 0.4 K/CMM 0.0 - 0.8 02/01/[address] [facility] Eosinophils # 0.2 K/CMM 0.0 - 0.5 02/01/2017 [facility] Chest 1view DX Chest 1view DX Chest, single view dated 02/01/2017. HISTORY: Shortness of breath. Comparison is made to a prior study dated 11/27/2016. The heart is normal in size. The cardiomediastinal shadow is stable. The lungs appear clear. The pulmonary vasculature is normal in caliber. No acute pleural space abnormalities are identified. IMPRESSION: 1. No radiographic evidence of acute cardiopulmonary disease. SL: 131 02/01/2017 - - Read by: Jose Alvarenga MD Dictated Date/time: 12/05/17 01:06 Electronically Signed by: Jose Alvarenga MD 02/01/17 01:07 FINAL REPORT [facility] CARDIAC ENZYMES CK MB Index null 0.0 - 2.5 11/29/2016 [facility] CARDIAC ENZYMES Total CK 43 unit/L 12 - 191 11/29/2016 [facility] CARDIAC ENZYMES CK MB null 0.5 - 3.6 11/29/2016 [facility] CARDIAC ENZYMES Troponin-I null 0.00 - 0.40 11/29/2016 [facility] CHEM PANEL Lipase Lvl 107 unit/L 73 - 393 11/29/2016 [facility] CHEM PANEL Globulin 4.4 g/dL 2.7 - 4.2 11/29/2016 [facility] CHEM PANEL B/C Ratio 12 6 - 25 11/29/2016 [facility] CHEM PANEL A/G Ratio 0.7 0.7 - 1.6 11/29/2016 [facility] CHEM PANEL eGFR 70 mL/min/1.73m2 11/29/2016 Result Comment: The eGFR is calculated using the CKD-EPI formula. In most young, healthy individuals the eGFR will be >90 mL/min/1.73m2. The eGFR declines with age. An eGFR of 60-89 may be normal in some populations, particularly the elderly, for whom the CKD-EPI formula has not been extensively validated. Use of the eGFR is not recommended in the following populations: Individuals with unstable creatinine concentrations, including patients and those with serious co-morbid conditions. Patients with extremes in muscle mass or diet. The data above are obtained from the National Kidney Disease Education Program (NKDEP) which additionally recommends that when the eGFR is used in patients with extremes of body mass index for purposes of drug dosing, the eGFR should be multiplied by the estimated BMI. [facility] CHEM PANEL CO2 28 meq/L 24 - 32 11/29/2016 [facility] CHEM PANEL Chloride Lvl 106 meq/L 95 - 109 11/29/2016 [facility] CHEM PANEL Total Protein 7.4 g/dL 6.4 - 8.4 11/29/2016 [facility] CHEM PANEL Calcium Lvl 9.1 mg/dL 8.5 - 10.5 11/29/2016 [facility] CHEM PANEL Albumin Lvl 3.0 g/dL 3.5 - 5.0 11/29/2016 [facility] CHEM PANEL ALT 31 unit/L 0 - 65 11/29/2016 [facility] CHEM PANEL Alk Phos 113 unit/L 39 - 136 11/29/2016 [facility] CHEM PANEL AST 23 unit/L 0 - 37 11/29/2016 [facility] CHEM PANEL Bili Total 0.6 mg/dL 0.2 - 1.3 11/29/2016 [facility] CHEM PANEL AGAP 9.6 meq/L 10.0 - 20.0 11/29/2016 [facility] CHEM PANEL Glucose Lvl 88 mg/dL 70 - 99 11/29/2016 [facility] CHEM PANEL BUN 11 mg/dL 7 - 22 11/29/2016 [facility] CHEM PANEL Potassium Lvl 3.6 meq/L 3.5 - 5.1 11/29/2016 [facility] CHEM PANEL Sodium Lvl 140 meq/L 135 - 145 11/29/2016 [facility] CHEM PANEL Creatinine Lvl 0.91 mg/dL 0.50 - 1.40 11/29/2016 [facility] HEMATOLOGY Segs 49.3 % 45.0 - 75.0 11/29/2016 [facility] HEMATOLOGY Monocytes 10.9 % 2.0 - 12.0 11/29/2016 [facility] HEMATOLOGY Lymphocytes 24.8 % 20.0 - 40.0 11/29/2016 [facility] HEMATOLOGY Eosinophils # 1.0 K/CMM 0.0 - 0.5 11/29/2016 [facility] HEMATOLOGY Basophils 0.6 % 0.0 - 1.0 11/29/2016 [facility] HEMATOLOGY Monocytes # 0.8 K/CMM 0.0 - 0.8 11/29/2016 [facility] HEMATOLOGY Segs-Bands # 3.5 K/CMM 1.5 - 8.1 11/29/2016 [facility] HEMATOLOGY Eosinophils 14.4 % 0.0 - 4.0 11/29/2016 [facility] HEMATOLOGY Lymphocytes # 1.7 K/CMM 1.0 - 5.5 11/29/2016 [facility] HEMATOLOGY Platelet 329 K/CMM 133 - 450 11/29/2016 [facility] HEMATOLOGY MPV 7.4 fL 7.4 - 10.4 11/29/2016 [facility] HEMATOLOGY MCH 30.9 pg 27.0 - 31.0 11/29/2016 [facility] HEMATOLOGY MCV 89.9 fL 80.0 - 98.0 11/29/2016 [facility] HEMATOLOGY RDW 14.4 % 11.5 - 14.5 11/29/2016 [facility] HEMATOLOGY MCHC 34.4 g/dL 32.0 - 36.0 11/29/2016 [facility] HEMATOLOGY Hct 35.6 % 36.0 - 48.0 11/29/2016 [facility] HEMATOLOGY Hgb 12.3 g/dL 12.0 - 16.0 11/29/2016 [facility] HEMATOLOGY RBC 3.96 M/CMM 4.20 - 5.40 11/29/2016 [facility] HEMATOLOGY WBC 7.0 K/CMM 3.7 - 10.4 11/29/2016 [facility] CARDIAC ENZYMES CK MB Index null 0.0 - 2.5 11/27/2016 [facility] CARDIAC ENZYMES Total CK 48 unit/L 12 - 191 11/27/2016 [facility] CARDIAC ENZYMES CK MB null 0.5 - 3.6 11/27/2016 [facility] CARDIAC ENZYMES Troponin-I null 0.00 - 0.40 11/27/2016 [facility] CHEM PANEL B/C Ratio 14 6 - 25 11/27/2016 [facility] CHEM PANEL A/G Ratio 0.3 0.7 - 1.6 11/27/2016 [facility] CHEM PANEL Globulin 5.6 g/dL 2.7 - 4.2 11/27/2016 [facility] CHEM PANEL Albumin Lvl 1.5 g/dL 3.5 - 5.0 11/27/2016 [facility] CHEM PANEL Total Protein 7.1 g/dL 6.4 - 8.4 11/27/2016 [facility] CHEM PANEL AGAP 11.9 meq/L 10.0 - 20.0 11/27/2016 [facility] CHEM PANEL Bili Total 0.3 mg/dL 0.2 - 1.3 11/27/2016 [facility] CHEM PANEL Alk Phos 110 unit/L 39 - 136 11/27/2016 [facility] CHEM PANEL AST 25 unit/L 0 - 37 11/27/2016 [facility] CHEM PANEL ALT 33 unit/L 0 - 65 11/27/2016 [facility] CHEM PANEL eGFR 70 mL/min/1.73m2 11/27/2016 Result Comment: The eGFR is calculated using the CKD-EPI formula. In most young, healthy individuals the eGFR will be >90 mL/min/1.73m2. The eGFR declines with age. An eGFR of 60-89 may be normal in some populations, particularly the elderly, for whom the CKD-EPI formula has not been extensively validated. Use of the eGFR is not recommended in the following populations: Individuals with unstable creatinine concentrations, including patients and those with serious co-morbid conditions. Patients with extremes in muscle mass or diet. The data above are obtained from the National Kidney Disease Education Program (NKDEP) which additionally recommends that when the eGFR is used in patients with extremes of body mass index for purposes of drug dosing, the eGFR should be multiplied by the estimated BMI. [facility] CHEM PANEL Creatinine Lvl 0.91 mg/dL 0.50 - 1.40 11/27/2016 [facility] CHEM PANEL BUN 13 mg/dL 7 - 22 11/27/2016 [facility] CHEM PANEL Glucose Lvl 87 mg/dL 70 - 99 11/27/2016 [facility] CHEM PANEL Sodium Lvl 141 meq/L 135 - 145 11/27/2016 [facility] CHEM PANEL CO2 26 meq/L 24 - 32 11/27/2016 [facility] CHEM PANEL Chloride Lvl 107 meq/L 95 - 109 11/27/2016 [facility] CHEM PANEL Potassium Lvl 3.9 meq/L 3.5 - 5.1 11/27/2016 [facility] CHEM PANEL Calcium Lvl 8.9 mg/dL 8.5 - 10.5 11/27/2016 [facility] CHEM PANEL Magnesium Lvl 2.1 mg/dL 1.8 - 2.4 11/27/2016 [facility] CHEM PANEL Phosphorus 3.7 mg/dL 2.5 - 4.5 11/27/2016 [facility] HEMATOLOGY Eosinophils # 1.0 K/CMM 0.0 - 0.5 11/27/2016 [facility] HEMATOLOGY Basophils # 0.1 K/CMM 0.0 - 0.2 11/27/2016 [facility] HEMATOLOGY Monocytes # 0.8 K/CMM 0.0 - 0.8 11/27/2016 [facility] HEMATOLOGY Lymphocytes # 1.8 K/CMM 1.0 - 5.5 11/27/2016 [facility] HEMATOLOGY Basophils 1.2 % 0.0 - 1.0 11/27/2016 [facility] HEMATOLOGY Segs-Bands # 3.3 K/CMM 1.5 - 8.1 11/27/2016 [facility] HEMATOLOGY Lymphocytes 25.8 % 20.0 - 40.0 11/27/2016 [facility] HEMATOLOGY Segs 47.1 % 45.0 - 75.0 11/27/2016 [facility] HEMATOLOGY Monocytes 11.7 % 2.0 - 12.0 11/27/2016 [facility] HEMATOLOGY Eosinophils 14.2 % 0.0 - 4.0 11/27/[address] [facility] Platelet 323 K/CMM 133 - 450 11/27/[address] [facility] MPV 7.4 fL 7.4 - 10.4 11/27/[address] [facility] RDW 14.1 % 11.5 - 14.5 11/27/[address] [facility] MCH 31.1 pg 27.0 - 31.0 11/27/[address] [facility] MCHC 34.5 g/dL 32.0 - 36.0 11/27/[address] [facility] MCV 90.1 fL 80.0 - 98.0 11/27/[address] [facility] Hgb 11.9 g/dL 12.0 - 16.0 11/27/[address] [facility] RBC 3.82 M/CMM 4.20 - 5.40 11/27/[address] [facility] Hct 34.4 % 36.0 - 48.0 11/27/[address] [facility] WBC 7.0 K/CMM 3.7 - 10.4 11/27/2016 [facility] Chest 1view DX Chest 1view DX Chest, single view dated 11/27/2016. HISTORY: Chest pain. Comparison is made to a prior study dated 02/18/2012. The heart is normal in size. Atherosclerotic calcification is identified in the aortic arch. The lungs appear clear of acute disease. Linear scarring or subsegmental atelectasis is noted in the lateral left lung base. The pulmonary vasculature is normal in caliber. No acute pleural space abnormalities are detected. IMPRESSION: 1. No radiographic evidence of acute cardiopulmonary disease. SL: 131 11/27/2016 - - Read by: Jose Alvarenga MD Dictated Date/time: 11/27/16 02:10 Electronically Signed by: Jose Alvarenga MD 11/27/16 02:11 FINAL REPORT [facility] Vital Signs Vital Sign Value Date Comments Source Height 156.21 cm 07/23/[facility] BMI Calculated 29.12 07/23/2017 [facility] Weight 71.051 07/23/2017 [facility] Temperature Oral (F) 99.1 F 07/23/2017 [facility] Respitory Rate 14 07/23/2017 [facility] Heart Rate 67 07/23/2017 [facility] Systolic (mm Hg) 114 07/23/2017 [facility] Diastolic (mm Hg) 64 07/23/2017 [facility] Temperature Oral (F) 98 F 05/31/2017 [facility] Systolic (mm Hg) 116 05/31/2017 [facility] Diastolic (mm Hg) 61 05/31/2017 [facility] Respitory Rate 16 05/31/2017 [facility] Heart Rate 51 05/31/2017 [facility] Systolic (mm Hg) 117 05/30/2017 [facility] Diastolic (mm Hg) 71 05/30/2017 [facility] Heart Rate 58 05/30/2017 [facility] Respitory Rate 18 05/30/2017 [facility] Weight 70 05/30/2017 [facility] BMI Calculated 29.16 05/30/2017 [facility] Temperature Oral (F) 98.8 F 05/30/2017 [facility] Height 154.94 cm 05/30/2017 [facility] BMI Calculated 29.43 05/03/2017 [facility] Weight 70.653 05/03/2017 [facility] Respitory Rate 16 05/03/2017 [facility] Heart Rate 54 05/03/2017 [facility] Systolic (mm Hg) 107 05/03/2017 [facility] Diastolic (mm Hg) 69 05/03/2017 [facility] Height 154.94 cm 05/03/2017 [facility] Temperature Oral (F) 98.0 F 05/03/2017 [facility] Weight 70.909 04/18/2017 [facility] BMI Calculated 29.54 04/18/2017 [facility] Height 154.94 cm 04/18/2017 [facility] BMI Calculated 29.54 04/18/2017 [facility] Height 154.94 cm 04/18/2017 [facility] Weight 70.909 04/18/2017 [facility] BMI Calculated 28.54 04/08/2017 [facility] Weight 70.71 04/08/2017 [facility] Height 157.4 cm 04/08/2017 [facility] Temperature Oral (F) 98.3 F 04/08/2017 [facility] Respitory Rate 16 04/08/2017 [facility] Heart Rate 56 04/08/2017 [facility] Systolic (mm Hg) 103 04/08/2017 [facility] Diastolic (mm Hg) 69 04/08/2017 [facility] Weight 70.938 03/04/2017 [facility] BMI Calculated 28.6 03/04/2017 [facility] Height 157.48 cm 03/04/2017 [facility] Respitory Rate 16 03/04/2017 [facility] Temperature Oral (F) 98.1 F 03/04/2017 [facility] Heart Rate 64 03/04/2017 [facility] Systolic (mm Hg) 130 03/04/2017 [facility] Diastolic (mm Hg) 76 03/04/2017 [facility] Temperature Oral (F) 98.3 F 02/01/2017 [facility] Heart Rate 78 02/01/2017 [facility] Respitory Rate 16 02/01/2017 [facility] Systolic (mm Hg) 125 02/01/2017 [facility] Diastolic (mm Hg) 76 02/01/2017 [facility] Systolic (mm Hg) 129 02/01/2017 [facility] Diastolic (mm Hg) 74 02/01/2017 [facility] Heart Rate 63 02/01/2017 [facility] BMI Calculated 29.54 02/01/2017 [facility] Weight 70.909 02/01/2017 [facility] Height 154.94 cm 02/01/2017 [facility] Respitory Rate 18 02/01/2017 [facility] Respitory Rate 18 11/29/2016 [facility] Heart Rate 64 11/29/2016 [facility] Temperature Oral (F) 97.9 F 11/29/2016 [facility] Systolic (mm Hg) 128 11/29/2016 [facility] Diastolic (mm Hg) 79 11/29/2016 [facility] Height 154.94 cm 11/29/2016 [facility] Systolic (mm Hg) 132 11/29/2016 [facility] Diastolic (mm Hg) 78 11/29/2016 [facility] Respitory Rate 16 11/29/2016 [facility] Heart Rate 65 11/29/2016 [facility] Temperature Oral (F) 97.8 F 11/29/2016 [facility] BMI Calculated 29.92 11/29/2016 [facility] Weight 71.818 11/29/2016 [facility] Temperature Oral (F) 98.1 F 11/27/2016 [facility] Systolic (mm Hg) 117 11/27/2016 [facility] Diastolic (mm Hg) 75 11/27/2016 [facility] Respitory Rate 19 11/27/2016 [facility] Heart Rate 58 11/27/2016 [facility] Respitory Rate 19 11/27/2016 [facility] Heart Rate 59 11/27/2016 [facility] Temperature Oral (F) 98.5 F 11/27/2016 [facility] Systolic (mm Hg) 128 11/27/2016 [facility] Diastolic (mm Hg) 65 11/27/2016 [facility] Heart Rate 62 11/27/2016 [facility] Systolic (mm Hg) 140 11/27/2016 [facility] Diastolic (mm Hg) 70 11/27/2016 [facility] Respitory Rate 18 11/27/2016 [facility] Temperature Oral (F) 98.5 F 11/27/2016 [facility] Weight 72.727 11/27/2016 [facility] Height 154.94 cm 11/27/2016 [facility] BMI Calculated 30.29 11/27/2016 [facility] Encounters Location Location Details Encounter Type Encounter Number Reason For Visit Attending Provider ADM Date DC Date Status Source [facility] Emergency [id number] Tayvonne Mdconald 11/27/2016 11/27/2016 [facility] Emergency [id number] Linda Eagle 11/29/2016 11/29/2016 [facility] Emergency [id number] Cat Soto 02/01/2017 02/01/2017 [facility] Outpatient [id number] Tyler Juarez 03/04/2017 03/05/2017 [facility] Outpatient [id number] Tyler Juarez 04/08/2017 04/09/2017 [facility] Outpatient [id number] Tyler Juarez 04/18/2017 04/19/2017 [facility] Outpatient [id number] Tyler Juarez 05/03/2017 05/04/2017 [facility] Emergency [id number] Kenneth Kovacs 05/30/2017 05/31/2017 [facility] Outpatient [id number] ESTELA SETH 07/22/2017 [facility] [place] Outpatient [id number] 07/23/2017 07/23/2017 [facility] Procedures Procedure Code Date Perfomer Comments Source Cholecystectomy [id number] [facility] Sphincterotomy of bile duct and pancreatic duct using duodenal approach [id number] [facility] Tonsillectomy [id number] [facility] Cholecystectomy [id number] [facility] Sphincterotomy of bile duct and pancreatic duct using duodenal approach [id number] [facility] Tonsillectomy [id number] [facility] Cholecystectomy [id number] [facility] Sphincterotomy of bile duct and pancreatic duct using duodenal approach [id number] [facility] Tonsillectomy [id number] [facility]
--- OUTSIDE RECORDS SUMMARY | 2018-03-01 00:03 | XMS REPORT | Summary of Care ---
Author Author [facility] Organization [facility] Address Unknown Phone Unavailable Encounter HQ Gladys(ZABRINA) [id number] Date(s): 11/27/16 - 11/27/16 [facility] [address] [place] [address]- Discharge Diagnosis: Heart palpitations Discharge Disposition: Home or Self Care Attending Physician: Ta Mcdonald MD PHD Vital Signs 1 2 3 Most recent to oldest [Reference Range]: 154.94 cm (11/27/16 12:25 AM) Height 98.1 DegF (11/27/16 3:20 AM) 98.5 DegF (11/27/16 1:26 AM) 98.5 DegF (11/27/16 12:25 AM) Temperature Oral [96.4-99.1 DegF] 117/75 mmHg (11/27/16 3:20 AM) 128/65 mmHg (11/27/16 1:26 AM) 140/70 mmHg (11/27/16 12:25 AM) Blood Pressure [90-140/60-90 mmHg] 19 BRMIN (11/27/16 3:20 AM) 19 BRMIN (11/27/16 1:26 AM) 18 BRMIN (11/27/16 12:25 AM) Respiratory Rate [14-20 BRMIN] 58 bpm *LOW* (11/27/16 3:20 AM) 59 bpm *LOW* (11/27/16 1:26 AM) 62 bpm (11/27/16 12:25 AM) Peripheral Pulse Rate [60-100 bpm] 72.727 kg (11/27/16 12:25 AM) Weight 30.29 m2 (11/27/16 12:25 AM) Body Mass Index Problem List Condition Effective Dates Status Health Status Informant Anxiety(Confirmed) Resolved Depression(Confirmed Resolved ) GERD - Resolved Gastro-esophageal reflux disease(Confirmed) Pancreatitis(Confirm Resolved ed) Allergies, Adverse Reactions, Alerts Substance Reaction Severity Status Augmentin Active Bactrim Active ciprofloxacin Active clindamycin Clindamycin Active Clindamycin Keflex Active LaMICtal Active Noroxin Active sulfa drugs Active Medications aspirin 324 mg, 4 tab, Route: PO, Drug form: CHEWTAB, ONCE, Dosing Weight 72.727, kg, Pr iority: STAT, Start date: 11/27/16 1:28:00 CDT, Stop date: 11/27/16 1:28:00 CDT Notes: Take with food. Start Date: 11/27/16 Stop Date: 11/27/16 Status: Completed Saline Flush 0.9% 10 mL, Route: IVP, Drug Form: INJ, Dosing Weight 72.727, kg, PRN, PRN Line Flush , Start date: 11/27/16 1:28:00 CDT, Duration: 30 day, Stop date: 12/27/16 1:27:0 0 CDT Notes: (Same as: BD Posiflush) Start Date: 11/27/16 Stop Date: 11/27/16 Status: Discontinued Results ELECTROLYTES Most recent to 1 oldest [Reference Range]: Sodium Lvl [135-145 141 mEq/L mEq/L] (11/27/16 1:46 AM) Potassium Lvl 3.9 mEq/L [3.5-5.1 mEq/L] (11/27/16 1:46 AM) Chloride Lvl [95-109 107 mEq/L mEq/L] (11/27/16 1:46 AM) CO2 [24-32 mEq/L] 26 mEq/L (11/27/16 1:46 AM) AGAP [10.0-20.0 11.9 mEq/L mEq/L] (11/27/16 1:46 AM) CHEM PANEL Most recent to 1 oldest [Reference Range]: Creatinine Lvl 0.91 mg/dL [0.50-1.40 mg/dL] (11/27/16 1:46 AM) eGFR 70 mL/min/1.73m2 1 *NA* (11/27/16 1:46 AM) BUN [7-22 mg/dL] 13 mg/dL (11/27/16 1:46 AM) B/C Ratio [6-25] 14 (11/27/16 1:46 AM) Glucose Lvl [70-99 87 mg/dL mg/dL] (11/27/16 1:46 AM) Total Protein 7.1 g/dL [6.4-8.4 g/dL] (11/27/16 1:46 AM) Albumin Lvl [3.5-5.0 1.5 g/dL g/dL] *LOW* (11/27/16 1:46 AM) Globulin [2.7-4.2 5.6 g/dL g/dL] *HI* (11/27/16 1:46 AM) A/G Ratio [0.7-1.6] 0.3 *LOW* (11/27/16 1:46 AM) Calcium Lvl 8.9 mg/dL [8.5-10.5 mg/dL] (11/27/16 1:46 AM) Phosphorus [2.5-4.5 3.7 mg/dL mg/dL] (11/27/16 1:46 AM) Magnesium Lvl 2.1 mg/dL [1.8-2.4 mg/dL] (11/27/16 1:46 AM) ALT [0-65 unit/L] 33 unit/L (11/27/16 1:46 AM) AST [0-37 unit/L] 25 unit/L (11/27/16 1:46 AM) Alk Phos [39-136 110 unit/L unit/L] (11/27/16 1:46 AM) Bili Total [0.2-1.3 0.3 mg/dL mg/dL] (11/27/16 1:46 AM) 1Result Comment: The eGFR is calculated using the [...] from the National Kidney Disease Education Program ( NKDEP) which additionally recommends that when the eGFR is used in patients with extremes of body mass index for purposes of drug dosing, the eGFR should be mul tiplied by the estimated BMI. CARDIAC ENZYMES Most recent to 1 oldest [Reference Range]: Total CK [12-191 48 unit/L unit/L] (11/27/16 1:46 AM) CK MB [0.5-3.6 <0.5 ng/mL ng/mL] (11/27/16 1:46 AM) CK MB Index <1.0 [0.0-2.5] (11/27/16 1:46 AM) Troponin-I <0.02 ng/mL [0.00-0.40 ng/mL] (11/27/16 1:46 AM) HEMATOLOGY Most recent to 1 oldest [Reference Range]: WBC [3.7-10.4 K/CMM] 7.0 K/CMM (11/27/16 1:46 AM) RBC [4.20-5.40 3.82 M/CMM M/CMM] *LOW* (11/27/16 1:46 AM) Hgb [12.0-16.0 g/dL] 11.9 g/dL *LOW* (11/27/16 1:46 AM) Hct [36.0-48.0 %] 34.4 % *LOW* (11/27/16 1:46 AM) MCV [80.0-98.0 fL] 90.1 fL (11/27/16 1:46 AM) MCH [27.0-31.0 pg] 31.1 pg *HI* (11/27/16 1:46 AM) MCHC [32.0-36.0 34.5 g/dL g/dL] (11/27/16 1:46 AM) RDW [11.5-14.5 %] 14.1 % (11/27/16 1:46 AM) Platelet [133-450 323 K/CMM K/CMM] (11/27/16 1:46 AM) MPV [7.4-10.4 fL] 7.4 fL (11/27/16 1:46 AM) Segs [45.0-75.0 %] 47.1 % (11/27/16 1:46 AM) Lymphocytes 25.8 % [20.0-40.0 %] (11/27/16 1:46 AM) Monocytes [2.0-12.0 11.7 % %] (11/27/16 1:46 AM) Eosinophils [0.0-4.0 14.2 % %] *HI* (11/27/16 1:46 AM) Basophils [0.0-1.0 1.2 % %] *HI* (11/27/16 1:46 AM) Segs-Bands # 3.3 K/CMM [1.5-8.1 K/CMM] (11/27/16 1:46 AM) Lymphocytes # 1.8 K/CMM [1.0-5.5 K/CMM] (11/27/16 1:46 AM) Monocytes # [0.0-0.8 0.8 K/CMM K/CMM] (11/27/16 1:46 AM) Eosinophils # 1.0 K/CMM [0.0-0.5 K/CMM] *HI* (11/27/16 1:46 AM) Basophils # [0.0-0.2 0.1 K/CMM K/CMM] (11/27/16 1:46 AM) Immunizations No data available for this section Procedures Procedure Date Related Diagnosis Body Site Cholecystectomy Sphincterotomy of bile duct and pancreatic duct using duodenal approach Social History Social History Type Response Smoking Status Never smoker; Exposure to Tobacco Smoke None; Cigarette Smoking Last 365 Days No; Reg Smoking Cessation Counseling No Assessment and Plan No data available for this section
--- OUTSIDE RECORDS SUMMARY | 2018-03-01 00:04 | XMS REPORT | Summary of Care ---
Author Author [facility] Organization [facility] Address Unknown Phone Unavailable Encounter HQ Gladys(FIN) [id number] Date(s): 04/08/17 - 04/08/17 [facility] [address], [address] [place] [address]- Encounter Diagnosis Chest pain, unspecified (Final) - 04/13/17 Nonspecific intraventricular block (Final) - Essential (primary) hypertension (Final) - Nonrheumatic mitral (valve) prolapse (Final) - Supraventricular tachycardia (Final) - Palpitations (Final) - Discharge Disposition: Home or Self Care Attending Physician: Tyler Juarez MD Referring Physician: Tyler Juarez MD Vital Signs Most recent to 1 oldest [Reference Range]: Height 157.4 cm (04/08/17 11:42 AM) Temperature Oral 98.3 DegF [96.4-99.1 DegF] (04/08/17 11:42 AM) Blood Pressure 103/69 mmHg [90-140/60-90 mmHg] (04/08/17 11:42 AM) Respiratory Rate 16 BRMIN [14-20 BRMIN] (04/08/17 11:42 AM) Peripheral Pulse 56 bpm Rate [60-100 bpm] *LOW* (04/08/17 11:42 AM) Weight 70.71 kg (04/08/17 11:42 AM) Body Mass Index 28.54 m2 (04/08/17 11:42 AM) Problem List Condition Effective Dates Status Health Status Informant Anxiety(Confirmed) Resolved PAT (paroxysmal Active atrial tachycardia)(Confirm ed) BBB (bundle branch Active block)(Confirmed)1 Depression(Confirmed Resolved ) Bladder sphincter Active dyssynergia(Confirme d) GERD - Resolved Gastro-esophageal reflux disease(Confirmed) HTN Resolved (hypertension)(Confi rmed)2 IBS (irritable bowel Active syndrome)(Confirmed) MVP (mitral valve Active prolapse)(Confirmed) Palpitations(Confirm Active ed) Pancreatitis(Confirm Resolved ed) 1Right 2off and on htn Allergies, Adverse Reactions, Alerts Substance Reaction Severity Status sulfa drugs Active ciprofloxacin Active doxycycline Active clindamycin Clindamycin Active Clindamycin Keflex Active Noroxin Active Bactrim Active Vicodin Active LaMICtal Active Medications No Known Medications Results No data available for this section Immunizations No data available for this section Procedures Procedure Date Related Diagnosis Body Site Status Cholecystectomy Completed Sphincterotomy of bile duct and pancreatic Completed duct using duodenal approach Tonsillectomy Completed Social History Social History Type Response Substance Abuse Use: None. Alcohol Past Smoking Status Never smoker; Previous treatment: None; Ready to change: No; Concerns about tobacco use in household: No; Exposure to Tobacco Smoke None; Cigarette Smoking Last 365 Days No; Reg Smoking Cessation Counseling No entered on: 05/30/17 Assessment and Plan No data available for this section
--- OUTSIDE RECORDS SUMMARY | 2018-03-01 00:04 | XMS REPORT | Summary of Care ---
Author Author [facility] Address Unknown Phone Unavailable Encounter AIDEE Graham(FIN) [id number] Date(s): 07/22/17 - 07/22/17 [facility] [address] [place] [phone] Discharge Disposition: Home or Self Care Vital Signs Most recent to 1 oldest [Reference Range]: Height 156.21 cm (07/22/17 7:22 PM) Temperature Oral 99.1 DegF [96.4-99.1 DegF] (07/22/17 7:22 PM) Blood Pressure 114/64 mmHg [90-140/60-90 mmHg] (07/22/17 7:22 PM) Respiratory Rate 14 BRMIN [14-20 BRMIN] (07/22/17 7:22 PM) Peripheral Pulse 67 bpm Rate [60-100 bpm] (07/22/17 7:22 PM) Weight 71.051 kg (07/22/17 7:22 PM) Body Mass Index 29.12 m2 (07/22/17 7:22 PM) Problem List Condition Effective Dates Status Health [...] Bactrim Active Vicodin Active LaMICtal Active Medications gabapentin 100 mg oral capsule 100 mg=1 cap, PO, TID, 0 Refill(s) Start Date: 07/22/17 Status: Ordered Results URINE AND STOOL Most recent to 1 oldest [Reference Range]: POC UA Turbidity Clear [Clear] *NA* (07/22/17 7:40 PM) POC UA Color Yellow [Yellow] *NA* (07/22/17 7:40 PM) POC UA pH [5.0-8.0] 7.0 (07/22/17 7:40 PM) POC UA SG [<=1.030] 1.020 (07/22/17 7:40 PM) POC UA Glu [Negative Negative mg/dL mg/dL] *NA* (07/22/17 7:40 PM) POC UA Bld Trace [Negative] *NA* (07/22/17 7:40 PM) POC UA Ket [Negative Negative mg/dL mg/dL] *NA* (07/22/17 7:40 PM) POC UA Prot Negative mg/dL [Negative mg/dL] *NA* (07/22/17 7:40 PM) POC UA Uro [0.1-1.0 0.2 EU/dL EU/dL] (07/22/17 7:40 PM) POC UA Bili Negative [Negative] *NA* (07/22/17 7:40 PM) POC UA LeukEst Negative [Negative] *NA* (07/22/17 7:40 PM) POC UA Nit Negative [Negative] *NA* (07/22/17 7:40 PM) Immunizations No data available for this section [...] Reg Smoking Cessation Counseling No entered on: 07/22/17 Assessment and Plan No data available for this section
--- OUTSIDE RECORDS SUMMARY | 2018-03-01 00:04 | XMS REPORT | Summary of Care ---
Author Author [facility] Organization [facility] Address Unknown Phone Unavailable Encounter AIDEE Graham(ZABRINA) [id number] Date(s): 11/29/16 - 11/29/16 [facility] [address] [place] [address]- Discharge Diagnosis: Anxiety Discharge Diagnosis: Abdominal pain Discharge Diagnosis: Chest pain Discharge Disposition: Home or Self Care Attending Physician: Linda Guillermo MD Vital Signs Most recent to 1 2 oldest [Reference Range]: Height 154.94 cm (11/29/16 3:21 AM) Temperature Oral 97.9 DegF 97.8 DegF [96.4-99.1 DegF] (11/29/16 5:56 AM) (11/29/16 3:21 AM) Blood Pressure 128/79 mmHg 132/78 mmHg [90-140/60-90 mmHg] (11/29/16 5:56 AM) (11/29/16 3:21 AM) Respiratory Rate 18 BRMIN 16 BRMIN [14-20 BRMIN] (11/29/16 5:56 AM) (11/29/16 3:21 AM) Peripheral Pulse 64 bpm 65 bpm Rate [60-100 bpm] (11/29/16 5:56 AM) (11/29/16 3:21 AM) Weight 71.818 kg (11/29/16 3:21 AM) Body Mass Index 29.92 m2 (11/29/16 3:21 AM) Problem List Condition Effective Dates Status Health Status Informant Anxiety(Confirmed) Resolved Depression(Confirmed Resolved ) GERD - Resolved Gastro-esophageal reflux disease(Confirmed) Pancreatitis(Confirm Resolved ed) Allergies, Adverse Reactions, Alerts Substance Reaction Severity Status Augmentin Active Bactrim Active ciprofloxacin Active clindamycin Clindamycin Active Clindamycin Keflex Active LaMICtal Active Noroxin Active sulfa drugs Active Medications aspirin 325 mg, Route: PO, Drug form: TAB, ONCE, Dosing Weight 71.818, kg, Priority: STA T, Start date: 11/29/16 3:56:00 CDT, Stop date: 11/29/16 3:56:00 CDT Start Date: 11/29/16 Stop Date: 11/29/16 Status: Completed Ativan 1 mg, Route: IVP, Drug form: INJ, ONCE, Dosing Weight 71.818, kg, Priority: STAT , Start date: 11/29/16 3:56:00 CDT, Stop date: 11/29/16 3:56:00 CDT Start Date: 11/29/16 Stop Date: 11/29/16 Status: Completed GI cocktail 30 mL, Route: PO, Dosing Weight 71.818, kg, ONCE, STAT, Start date: 11/29/16 3:5 6:00 CDT, Stop date: 11/29/16 3:56:00 CDT Start Date: 11/29/16 Stop Date: 11/29/16 Status: Completed metoclopramide 10 mg, Route: IVP, Drug form: INJ, ONCE, Dosing Weight 71.818, kg, Priority: STA T, Start date: 11/29/16 3:56:00 CDT, Stop date: 11/29/16 3:56:00 CDT Start Date: 11/29/16 Stop Date: 11/29/16 Status: Completed Sodium Chloride 0.9% (Bolus) IV 1,000 mL, Infuse Over: 1 hr, Route: IV, ONCE, Priority: STAT, Dosing Weight 71.8 18 kg, Start date: 11/29/16 3:56:00 CDT, Duration: 1 doses or times, Stop date: 11/29/16 3:56:00 CDT Start Date: 11/29/16 Stop Date: 11/29/16 Status: Completed Results ELECTROLYTES Most recent to 1 oldest [Reference Range]: Sodium Lvl [135-145 140 mEq/L mEq/L] (11/29/16 4:20 AM) Potassium Lvl 3.6 mEq/L [3.5-5.1 mEq/L] (11/29/16 4:20 AM) Chloride Lvl [95-109 106 mEq/L mEq/L] (11/29/16 4:20 AM) CO2 [24-32 mEq/L] 28 mEq/L (11/29/16 4:20 AM) AGAP [10.0-20.0 9.6 mEq/L mEq/L] *LOW* (11/29/16 4:20 AM) CHEM PANEL Most recent to 1 oldest [Reference Range]: Creatinine Lvl 0.91 mg/dL [0.50-1.40 mg/dL] (11/29/16 4:20 AM) eGFR 70 mL/min/1.73m2 1 *NA* (11/29/16 4:20 AM) BUN [7-22 mg/dL] 11 mg/dL (11/29/16 4:20 AM) B/C Ratio [6-25] 12 (11/29/16 4:20 AM) Glucose Lvl [70-99 88 mg/dL mg/dL] (11/29/16 4:20 AM) Total Protein 7.4 g/dL [6.4-8.4 g/dL] (11/29/16 4:20 AM) Albumin Lvl [3.5-5.0 3.0 g/dL g/dL] *LOW* (11/29/16 4:20 AM) Globulin [2.7-4.2 4.4 g/dL g/dL] *HI* (11/29/16 4:20 AM) A/G Ratio [0.7-1.6] 0.7 (11/29/16 4:20 AM) Calcium Lvl 9.1 mg/dL [8.5-10.5 mg/dL] (11/29/16 4:20 AM) ALT [0-65 unit/L] 31 unit/L (11/29/16 4:20 AM) AST [0-37 unit/L] 23 unit/L (11/29/16 4:20 AM) Alk Phos [39-136 113 unit/L unit/L] (11/29/16 4:20 AM) Bili Total [0.2-1.3 0.6 mg/dL mg/dL] (11/29/16 4:20 AM) Lipase Lvl [73-393 107 unit/L unit/L] (11/29/16 4:20 AM) 1Result Comment: The eGFR is calculated [...] 1 oldest [Reference Range]: Total CK [12-191 43 unit/L unit/L] (11/29/16 4:20 AM) CK MB [0.5-3.6 <0.5 ng/mL ng/mL] (11/29/16 4:20 AM) CK MB Index <1.2 [0.0-2.5] (11/29/16 4:20 AM) Troponin-I <0.02 ng/mL [0.00-0.40 ng/mL] (11/29/16 4:20 AM) HEMATOLOGY Most recent to 1 oldest [Reference Range]: WBC [3.7-10.4 K/CMM] 7.0 K/CMM (11/29/16 4:20 AM) RBC [4.20-5.40 3.96 M/CMM M/CMM] *LOW* (11/29/16 4:20 AM) Hgb [12.0-16.0 g/dL] 12.3 g/dL (11/29/16 4:20 AM) Hct [36.0-48.0 %] 35.6 % *LOW* (11/29/16 4:20 AM) MCV [80.0-98.0 fL] 89.9 fL (11/29/16 4:20 AM) MCH [27.0-31.0 pg] 30.9 pg (11/29/16 4:20 AM) MCHC [32.0-36.0 34.4 g/dL g/dL] (11/29/16 4:20 AM) RDW [11.5-14.5 %] 14.4 % (11/29/16 4:20 AM) Platelet [133-450 329 K/CMM K/CMM] (11/29/16 4:20 AM) MPV [7.4-10.4 fL] 7.4 fL (11/29/16 4:20 AM) Segs [45.0-75.0 %] 49.3 % (11/29/16 4:20 AM) Lymphocytes 24.8 % [20.0-40.0 %] (11/29/16 4:20 AM) Monocytes [2.0-12.0 10.9 % %] (11/29/16 4:20 AM) Eosinophils [0.0-4.0 14.4 % %] *HI* (11/29/16 4:20 AM) Basophils [0.0-1.0 0.6 % %] (11/29/16 4:20 AM) Segs-Bands # 3.5 K/CMM [1.5-8.1 K/CMM] (11/29/16 4:20 AM) Lymphocytes # 1.7 K/CMM [1.0-5.5 K/CMM] (11/29/16 4:20 AM) Monocytes # [0.0-0.8 0.8 K/CMM K/CMM] (11/29/16 4:20 AM) Eosinophils # 1.0 K/CMM [0.0-0.5 K/CMM] *HI* (11/29/16 4:20 AM) Immunizations No data available for this [...]
--- OUTSIDE RECORDS SUMMARY | 2018-03-01 00:04 | XMS REPORT | Summary of Care ---
Author Author [facility] Organization [facility] Address Unknown Phone Unavailable Encounter HQ Gladys(ZABRINA) [id number] Date(s): 04/18/17 - 04/18/17 [facility] [address] Encounter Diagnosis Chest pain, unspecified (Final) - 04/21/17 Discharge Disposition: Home or Self Care Attending Physician: Tyler Juarez MD Referring Physician: Tyler Juarez MD Vital Signs Most recent to 1 2 oldest [Reference Range]: Height 154.94 cm 154.94 cm (04/18/17 7:56 AM) (04/18/17 7:39 AM) Weight 70.909 kg 70.909 kg (04/18/17 7:56 AM) (04/18/17 7:39 AM) Body Mass Index 29.54 m2 29.54 m2 (04/18/17 7:56 AM) (04/18/17 7:39 AM) Problem List Condition Effective Dates Status [...] Bactrim Active Vicodin Active LaMICtal Active Medications hyoscyamine 0.125 mg oral tablet PO, Q4H, 0 Refill(s) Start Date: 04/18/17 Status: Ordered ondansetron 4 mg oral tablet PO, PRN, 0 Refill(s) Start Date: 04/18/17 Status: Ordered Valtrex 500 mg oral tablet 0 Refill(s) Start Date: 04/18/17 Status: Ordered Results No data available for this section [...]
--- OUTSIDE RECORDS SUMMARY | 2018-03-01 00:04 | XMS REPORT | Summary of Care ---
Author Author [facility] Organization [facility] Address Unknown Phone Unavailable Encounter AIDEE Graham(ZABRINA) [id number] Date(s): 02/01/17 - 02/01/17 [facility] [address] [place] [address]- [phone] Discharge Diagnosis: Shortness of breath Discharge Diagnosis: Anxiety Discharge Disposition: Home or Self Care Attending Physician: Kiesha Soto DO Vital Signs Most recent to 1 2 oldest [Reference Range]: Height 154.94 cm (02/01/17 12:15 AM) Temperature Oral 98.3 DegF [96.4-99.1 DegF] (02/01/17 3:30 AM) Blood Pressure 125/76 mmHg 129/74 mmHg [90-140/60-90 mmHg] (02/01/17 3:30 AM) (02/01/17 12:15 AM) Respiratory Rate 16 BRMIN 18 BRMIN [14-20 BRMIN] (02/01/17 3:30 AM) (02/01/17 12:15 AM) Peripheral Pulse 78 bpm 63 bpm Rate [60-100 bpm] (02/01/17 3:30 AM) (02/01/17 12:15 AM) Weight 70.909 kg (02/01/17 12:15 AM) Body Mass Index 29.54 m2 (02/01/17 12:15 AM) Problem List Condition Effective Dates Status Health Status Informant Anxiety(Confirmed) Resolved PAT (paroxysmal Active atrial tachycardia)(Confirm ed) BBB (bundle branch Active block)(Confirmed)1 Depression(Confirmed Resolved ) Bladder sphincter Active dyssynergia(Confirme d) GERD - Resolved Gastro-esophageal reflux disease(Confirmed) HTN Resolved (hypertension)(Confi rmed)2 IBS (irritable bowel Active syndrome)(Confirmed) MVP (mitral valve Active prolapse)(Confirmed) Pancreatitis(Confirm Resolved ed) 1Right 2off and on htn Allergies, Adverse Reactions, Alerts Substance Reaction Severity Status sulfa drugs Active ciprofloxacin Active clindamycin Clindamycin Active Clindamycin Keflex Active Noroxin Active Bactrim Active LaMICtal Active Medications Saline Flush 0.9% 10 mL, Route: IVP, Drug Form: INJ, Dosing Weight 71.818, kg, PRN, PRN Line Flush , Start date: 02/01/17 0:15:00 [employer], Duration: 30 day, Stop date: 03/03/17 0:14:0 0 [employer] Notes: (Same as: BD Posiflush) Start Date: 02/01/17 Stop Date: 02/01/17 Status: Discontinued Results ELECTROLYTES Most recent to 1 oldest [Reference Range]: Sodium Lvl [135-145 142 mEq/L mEq/L] (02/01/17 12:39 AM) Potassium Lvl 3.9 mEq/L [3.5-5.1 mEq/L] (02/01/17 12:39 AM) Chloride Lvl [95-109 109 mEq/L mEq/L] (02/01/17 12:39 AM) CO2 [24-32 mEq/L] 26 mEq/L (02/01/17 12:39 AM) AGAP [10.0-20.0 10.9 mEq/L mEq/L] (02/01/17 12:39 AM) CHEM PANEL Most recent to 1 oldest [Reference Range]: Creatinine Lvl 0.74 mg/dL [0.50-1.40 mg/dL] (02/01/17 12:39 AM) eGFR 89 mL/min/1.73m2 1 *NA* (02/01/17 12:39 AM) BUN [7-22 mg/dL] 10 mg/dL (02/01/17 12:39 AM) B/C Ratio [6-25] 14 (02/01/17 12:39 AM) Glucose Lvl [70-99 101 mg/dL mg/dL] *HI* (02/01/17 12:39 AM) Total Protein 7.1 g/dL [6.4-8.4 g/dL] (02/01/17 12:39 AM) Albumin Lvl [3.5-5.0 3.1 g/dL g/dL] *LOW* (02/01/17 12:39 AM) Globulin [2.7-4.2 4.0 g/dL g/dL] (02/01/17 12:39 AM) A/G Ratio [0.7-1.6] 0.8 (02/01/17 12:39 AM) Calcium Lvl 8.9 mg/dL [8.5-10.5 mg/dL] (02/01/17 12:39 AM) ALT [0-65 unit/L] 32 unit/L (02/01/17 12:39 AM) AST [0-37 unit/L] 25 unit/L (02/01/17 12:39 AM) Alk Phos [39-136 67 unit/L unit/L] (02/01/17 12:39 AM) Bili Total [0.2-1.3 0.3 mg/dL mg/dL] (02/01/17 12:39 AM) Lipase Lvl [73-393 155 unit/L unit/L] (02/01/17 12:39 AM) 1Result Comment: The eGFR is calculated [...] 1 oldest [Reference Range]: Total CK [12-191 77 unit/L unit/L] (02/01/17 12:39 AM) CK MB [0.5-3.6 0.7 ng/mL ng/mL] (02/01/17 12:39 AM) CK MB Index 0.9 [0.0-2.5] (02/01/17 12:39 AM) Troponin-I <0.02 ng/mL [0.00-0.40 ng/mL] (02/01/17 12:39 AM) BNP [<=100 pg/mL] 59 pg/mL (02/01/17 12:39 AM) URINE AND STOOL Most recent to 1 oldest [Reference Range]: UA Turbidity [Clear] Clear (02/01/17 1:08 AM) UA Color Ltyellow *NA* (02/01/17 1:08 AM) UA pH [5.0-8.0] 7.0 (02/01/17 1:08 AM) UA Spec Grav 1.006 [<=1.030] (02/01/17 1:08 AM) UA Glucose [Negative Negative mg/dL mg/dL] *NA* (02/01/17 1:08 AM) UA Blood [Negative] Negative (02/01/17 1:08 AM) UA Ketones [Negative Negative mg/dL mg/dL] *NA* (02/01/17 1:08 AM) UA Protein [Negative Negative mg/dL mg/dL] (02/01/17 1:08 AM) UA Urobilinogen <=1.0 mg/dL [0.1-1.0 mg/dL] *NA* (02/01/17 1:08 AM) UA Bili [Negative] Negative *NA* (02/01/17 1:08 AM) UA Leuk Est Negative [Negative] (02/01/17 1:08 AM) UA Nitrite Negative [Negative] (02/01/17 1:08 AM) UA WBC [0-5 /HPF] <1 /HPF (02/01/17 1:08 AM) UA RBC [0-2 /HPF] <1 /HPF (02/01/17 1:08 AM) UA Sq Epi None Seen *NA* (02/01/17 1:08 AM) HEMATOLOGY Most recent to 1 oldest [Reference Range]: WBC [3.7-10.4 K/CMM] 5.1 K/CMM (02/01/17 12:39 AM) RBC [4.20-5.40 4.37 M/CMM M/CMM] (02/01/17 12:39 AM) Hgb [12.0-16.0 g/dL] 13.1 g/dL (02/01/17 12:39 AM) Hct [36.0-48.0 %] 38.6 % (02/01/17 12:39 AM) MCV [80.0-98.0 fL] 88.2 fL (02/01/17 12:39 AM) MCH [27.0-31.0 pg] 30.0 pg (02/01/17 12:39 AM) MCHC [32.0-36.0 34.0 g/dL g/dL] (02/01/17 12:39 AM) RDW [11.5-14.5 %] 14.4 % (02/01/17 12:39 AM) Platelet [133-450 243 K/CMM K/CMM] (02/01/17 12:39 AM) MPV [7.4-10.4 fL] 8.7 fL (02/01/17 12:39 AM) Segs [45.0-75.0 %] 50.7 % (02/01/17 12:39 AM) Lymphocytes 36.2 % [20.0-40.0 %] (02/01/17 12:39 AM) Monocytes [2.0-12.0 7.9 % %] (02/01/17 12:39 AM) Eosinophils [0.0-4.0 4.4 % %] *HI* (02/01/17 12:39 AM) Basophils [0.0-1.0 0.8 % %] (02/01/17 12:39 AM) Segs-Bands # 2.6 K/CMM [1.5-8.1 K/CMM] (02/01/17 12:39 AM) Lymphocytes # 1.8 K/CMM [1.0-5.5 K/CMM] (02/01/17 12:39 AM) Monocytes # [0.0-0.8 0.4 K/CMM K/CMM] (02/01/17 12:39 AM) Eosinophils # 0.2 K/CMM [0.0-0.5 K/CMM] (02/01/17 12:39 AM) Immunizations No data available for this section Procedures Procedure Date Related Diagnosis Body Site Cholecystectomy Sphincterotomy of bile duct and pancreatic duct using duodenal approach Tonsillectomy Social History Social History Type Response Smoking Status Never smoker; Exposure to Tobacco Smoke None; Cigarette Smoking Last 365 Days No; Reg Smoking Cessation Counseling No Assessment and Plan No data available for this section
--- OUTSIDE RECORDS SUMMARY | 2018-03-01 00:04 | XMS REPORT | Summary of Care ---
Author Author [facility] Organization [facility] Address Unknown Phone Unavailable Encounter HQ Gladys(FIN) [id number] Date(s): 05/03/17 - 05/03/17 [facility] [address], [address] [place] [address]- Encounter Diagnosis Essential (primary) hypertension (Final) - 05/09/17 Chest pain, unspecified (Final) - Palpitations (Final) - Anxiety disorder, unspecified (Final) - Hyperlipidemia, unspecified (Final) - Discharge Disposition: Home or Self Care Attending Physician: Tyler Juarez MD Referring Physician: Tyler Juarez MD Vital Signs Most recent to 1 oldest [Reference Range]: Height 154.94 cm (05/03/17 12:16 PM) Temperature Oral 98.0 DegF [96.4-99.1 DegF] (05/03/17 12:16 PM) Blood Pressure 107/69 mmHg [90-140/60-90 mmHg] (05/03/17 12:16 PM) Respiratory Rate 16 BRMIN [14-20 BRMIN] (05/03/17 12:16 PM) Peripheral Pulse 54 bpm Rate [60-100 bpm] *LOW* (05/03/17 12:16 PM) Weight 70.653 kg (05/03/17 12:16 PM) Body Mass Index 29.43 m2 (05/03/17 12:16 PM) Problem List Condition Effective Dates Status [...] Bactrim Active Vicodin Active LaMICtal Active Medications Caltrate 600 + D oral tablet 0.5 tab, PO, BID, 0 Refill(s) Start Date: 05/03/17 Status: Ordered Imdur 30 mg oral tablet, extended release 30 mg=1 tab, PO, QAM, # 30 tab, 11 Refill(s), Pharmacy: [facility], Fo r Refill request please fax to [phone]. E-script request not accepted. Start Date: 04/22/17 Stop Date: 04/17/18 Status: Ordered Lipitor 10 mg oral tablet 10 mg=1 tab, PO, Daily, Repeat labs in 3 months, # 90 tab, 0 Refill(s), Pharmacy : [facility], For Refill request please fax to [phone]. E-script request not accepted. Start Date: 06/22/17 Status: Ordered Lipitor 10 mg oral tablet 10 mg=1 tab, PO, Daily, X 7 day, # 7 tab, 0 Refill(s), Pharmacy: [facility], For Refill request please fax to [phone]. E-script request not accep flaquito. Start Date: 06/17/17 Stop Date: 06/22/17 Status: Completed magnesium oxide 500 mg oral tablet 250 mg=0.5 tab, PO, Daily, 0 Refill(s) Start Date: 05/03/17 Status: Ordered Results No data available for [...]
--- OUTSIDE RECORDS SUMMARY | 2018-03-01 00:04 | XMS REPORT ---
Author Author [facility] Address Unknown Phone Unavailable Care Team Providers Care Front Maker Lockstitch Name Role Phone VIOLETTEESEQUIELWILMER Unavailable Unavailable Problems This patient has no known problems. Allergies, Adverse Reactions, Alerts This patient has no known allergies or adverse reactions. Medications This patient has no known medications. Results Test Description Test Time Test Comments Text Results Atomic Results Result Comments CT ABDOMEN/PELVIS W [place] [address] Patient Name: JEREMIAH CHAPMAN MR #: [id number] : 1960 Age/Sex: 56/F Req #: [id number] Adm Physician: WILMER OAKES MD Ordered by: WILMER OAKES MD Report #: [id number] Location: [facility] Room/Bed: [place] [address] Procedure: [id number] CT/CT ABDOMEN/PELVIS W Exam Date: Exam Time: REPORT STATUS: Signed EXAM: CT Abdomen and Pelvis WITH contrast INDICATION: Abdominal pain COMPARISON: MRCP 11/05/2016. CT abdomen and pelvis 07/30/2015 TECHNIQUE: Abdomen and pelvis were scanned utilizing a multidetector helical scanner from the lung base to the pubic symphysis after administration of contrast. Coronal and sagittal reformations were obtained. Protocol: General survey IV CONTRAST: 100 mL of Isovue 370 ORAL CONTRAST: None COMPLICATIONS: None RADIATION DOSE: Total Exam DLP: 368.5 mGy*cm. CTDIvol has been reviewed. It is below the limits set by the Radiation Protocol Committee (RPC). FINDINGS: LINES: None. Lower thorax: No parenchymal abnormality. No pneumothorax. No pleural effusion. Bibasilar atelectasis. Liver: No focal mass. No hepatomegaly. Normal parenchyma. The hepatic and portal veins are patent. Gallbladder: Cholecystectomy. Biliary tree: No intrahepatic duct dilation. No extrahepatic duct dilation. Spleen: No splenomegaly. No focal mass. Splenules are noted. Pancreas: Normal parenchymal enhancement. No focal mass. Normal pancreatic duct. No peripancreatic inflammatory changes. Kidneys: No obstructing calculi. No hydronephrosis. No solid enhancing mass. Bilateral simple cysts. Multiple hypodensities too small to characterize are present bilaterally. Minimal bilateral nonspecific perinephric soft tissue inflammatory changes. Adrenal glands: No adrenal nodules.. Bladder: Normal urinary bladder. Pelvic organs: Normal uterus and ovaries. GI: No bowel wall thickening. Several fluid-filled nondistended loops of small bowel, without air-fluid levels. The stomach and small bowel are otherwise normal. The colon is normal. Normal appendix. A moderate amount of retained feces limits intraluminal evaluation of the colon. Peritoneum/retroperitoneum: No pneumoperitoneum. No ascites. No drainable fluid collection. Lymph nodes: No lymphadenopathy. . Vessels: The abdominal aorta and iliac vessels are patent. The celiac, superior mesenteric, and inferior mesenteric arteries are patent. Single bilateral renal arteries are patent. Minimal atherosclerotic calcifications. Bones: No focal abnormality. Degenerative changes of the lumbar spine. Soft tissues: No focal abnormality. IMPRESSION: No acute abnormality of the abdomen and pelvis. Signed by: Dr. Humberto Guzman M.D. on 11/06/2016 11:10 AM Dictated By: HUMBERTO GUZMAN MD 1110 Transcribed By: JOANN on 11/06/16 1110 COPY TO: WILMER OAKES MD [place] [address] Patient Name: JEREMIAH CHAPMAN MR #: [id number] : 1960 Age/Sex: 56/F Req #: [id number] Adm Physician: Ordered by: PAO BARRIGA MD Report #: [id number] Location: Room/Bed: Procedure: [id number] US/US LIVER Exam Date: Exam Time: REPORT STATUS: Signed PROCEDURE: US LIVER COMPARISON: None. INDICATIONS: Elevated Liver Enzymes TECHNIQUE: Evans- scale and color doppler transverse and longitudinal images of the right upper quadrant of the abdomen were obtained. FINDINGS: Liver: 11.7 cm in length in the right mid-clavicular line. Normal parenchymal echogenicity. No masses. Main portal vein: 0.8 cm in caliber. Hepatopedal flow. Gallbladder: Surgically removed. Common Bile Duct: 0.6 cm in caliber. No echogenic filling defect. Right kidney: 11.3 cm in length. Normal echogenicity. No solid masses or hydronephrosis. Round, anechoic structure with posterior acoustic enhancement and no internal septation or solid component in the interpolar region measuring 3.1 x 3.5 x 3.4 cm. Pancreas: The visualized portions are unremarkable. Inferior vena cava: P atent Aorta: Non-aneurysmal Ascites: None in the right upper quadrant of the abdomen. CONCLUSION: Status post cholecystectomy. Unremarkable sonographic appearance of the liver. Simple right renal cyst. Dictated by: Lala Hunter M.D. on 11/05/2016 at 9:14 Electronically approved by: Lala Hunter M.D. on 11/05/2016 at 9:14 Dictated By: LALA HUNTER MD 3 Transcribed By: ESME on 11/05/16913 COPY TO: PAO BARRIGA MD
--- OUTSIDE RECORDS SUMMARY | 2018-03-01 00:04 | XMS REPORT | Summary of Care ---
Author Author [facility] Organization [facility] Address Unknown Phone Unavailable Encounter HQ Gladys(FIN) [id number] Date(s): 05/03/17 - 05/03/17 [facility] [address], [address] [place] [address]- Encounter Diagnosis Essential (primary) hypertension (Final) - [...] QAM, # 30 tab, 11 Refill(s), Pharmacy: [facility], Fo r Refill request please fax to [phone]. E-script request not accepted. Start Date: 04/22/17 Stop Date: 04/17/18 Status: Ordered Lipitor 10 mg oral tablet 10 mg=1 tab, PO, Daily, Repeat labs in 3 months, # 90 tab, 0 Refill(s), Pharmacy : [facility], For Refill request please fax to [phone]. E-script request not accepted. Start Date: 06/22/17 Status: Ordered Lipitor 10 mg oral tablet 10 mg=1 tab, PO, Daily, X 7 day, # 7 tab, 0 Refill(s), Pharmacy: [facility], For Refill request please fax to [phone]. E-script request not accep flaquito. Start Date: [...]
--- OUTSIDE RECORDS SUMMARY | 2018-03-01 00:04 | XMS REPORT | Summary of Care ---
Author Author [facility] Organization [facility] Address Unknown Phone Unavailable Encounter AIDEE Graham(ZABRINA) [id number] Date(s): 03/04/17 - 03/04/17 [facility] [address], [address] [place] [address]- Discharge Disposition: Home or Self Care Attending Physician: Tyler Juarez MD Referring Physician: Tyler Juarez MD Vital Signs Most recent to 1 oldest [Reference Range]: Height 157.48 cm (03/04/17 9:21 AM) Temperature Oral 98.1 DegF [96.4-99.1 DegF] (03/04/17 9:21 AM) Blood Pressure 130/76 mmHg [90-140/60-90 mmHg] (03/04/17 9:21 AM) Respiratory Rate 16 BRMIN [14-20 BRMIN] (03/04/17 9:21 AM) Peripheral Pulse 64 bpm Rate [60-100 bpm] (03/04/17 9:21 AM) Weight 70.938 kg (03/04/17 9:21 AM) Body Mass Index 28.6 m2 (03/04/17 9:21 AM) Problem List Condition Effective Dates Status [...] Bactrim Active Vicodin Active LaMICtal Active Medications azelastine-fluticasone nasal 1 spray, NASAL, BID, 0 Refill(s) Start Date: 03/04/17 Status: Ordered Estrace Vaginal Cream 0.1 mg/g See Instructions, Insert 2-4 gm vaginally at bedtime nightly x 2 weeks then redu ce dose, # 1 tube, 3 Refill(s) Start Date: 03/04/17 Status: Ordered Florajen3 oral capsule 1 cap, PO, Daily, 0 Refill(s) Start Date: 03/04/17 Status: Ordered hydrOXYzine hydrochloride 25 mg oral tablet 25 mg=1 tab, PO, Bedtime, PRN itching, # 30 tab, 0 Refill(s) Start Date: 03/04/17 Stop Date: 04/03/17 Status: Ordered LORazepam 0.5 mg oral tablet 1 mg=2 tab, PO, TID, PRN Anxiety, # 20 tab, 0 Refill(s) Start Date: 03/04/17 Status: Ordered metoprolol tartrate 25 mg oral tablet 25 mg=1 tab, PO, BID, # 60 tab, 0 Refill(s) Start Date: 03/04/17 Status: Ordered pantoprazole 40 mg oral enteric coated tablet 40 mg=1 tab, PO, BID, # 90 tab, 0 Refill(s) Start Date: 03/04/17 Status: Ordered Refresh Dry Eye Therapy 1 drp, BOTH EYES, BID, 0 Refill(s) Start Date: 03/04/17 Status: Ordered tamsulosin 0.4 mg oral capsule 0.4 mg=1 cap, PO, Daily, # 90 cap, 0 Refill(s) Start Date: 03/04/17 Status: Ordered Zantac 300 300 mg, PO, Bedtime, 0 Refill(s) Start Date: 03/04/17 Status: Ordered Results No data available for [...]
--- OUTSIDE RECORDS SUMMARY | 2018-03-01 00:04 | XMS REPORT | Summary of Care ---
Author Author [facility] Organization [facility] Address Unknown Phone Unavailable Encounter HQ Gladys(FIN) [id number] Date(s): 05/30/17 - 05/30/17 [facility] [address] [place] [address]- [phone] Encounter Diagnosis Episodic lightheadedness (Discharge Diagnosis) - 05/30/17 Dizziness and giddiness (Final) - 06/06/17 Essential (primary) hypertension (Final) - Nonrheumatic mitral (valve) prolapse (Final) - Supraventricular tachycardia (Final) - Nonspecific intraventricular block (Final) - Discharge Disposition: Home or Self Care Attending Physician: Kenneth Kovacs MD Vital Signs Most recent to 1 2 oldest [Reference Range]: Height 154.94 cm (05/30/17 5:37 PM) Temperature Oral 98 DegF 98.8 DegF [96.4-99.1 DegF] (05/30/17 9:33 PM) (05/30/17 5:37 PM) Blood Pressure 116/61 mmHg 117/71 mmHg [90-140/60-90 mmHg] (05/30/17 9:33 PM) (05/30/17 5:37 PM) Respiratory Rate 16 BRMIN 18 BRMIN [14-20 BRMIN] (05/30/17 9:33 PM) (05/30/17 5:37 PM) Peripheral Pulse 51 bpm 58 bpm Rate [60-100 bpm] *LOW* *LOW* (05/30/17 9:33 PM) (05/30/17 5:37 PM) Weight 70 kg (05/30/17 5:37 PM) Body Mass Index 29.16 m2 (05/30/17 5:37 PM) Problem List Condition Effective Dates Status [...] Bactrim Active Vicodin Active LaMICtal Active Medications Sodium Chloride 0.9% (Bolus) IV 1,000 mL, Infuse Over: 1 hr, Route: IV, ONCE, Priority: STAT, Dosing Weight 70 k g, Start date: 05/30/17 19:43:00 CDT, Stop date: 05/30/17 19:43:00 CDT Start Date: 05/30/17 Stop Date: 05/30/17 Status: Completed Results ELECTROLYTES Most recent to 1 oldest [Reference Range]: Sodium Lvl [135-145 144 mEq/L mEq/L] (05/30/17 7:29 PM) Potassium Lvl 3.7 mEq/L [3.5-5.1 mEq/L] (05/30/17 7:29 PM) Chloride Lvl [95-109 107 mEq/L mEq/L] (05/30/17 7:29 PM) CO2 [24-32 mEq/L] 33 mEq/L *HI* (05/30/17 7:29 PM) AGAP [10.0-20.0 7.7 mEq/L mEq/L] *LOW* (05/30/17 7:29 PM) CHEM PANEL Most recent to 1 oldest [Reference Range]: Creatinine Lvl 0.87 mg/dL [0.50-1.40 mg/dL] (05/30/17 7:29 PM) eGFR 73 mL/min/1.73m2 1 *NA* (05/30/17 7:29 PM) BUN [7-22 mg/dL] 13 mg/dL (05/30/17 7:29 PM) B/C Ratio [6-25] 15 (05/30/17 7:29 PM) Glucose Lvl [70-99 73 mg/dL mg/dL] (05/30/17 7:29 PM) Total Protein 7.1 g/dL [6.4-8.4 g/dL] (05/30/17 7:29 PM) Albumin Lvl [3.5-5.0 3.4 g/dL g/dL] *LOW* (05/30/17 7:29 PM) Globulin [2.7-4.2 3.7 g/dL g/dL] (05/30/17 7:29 PM) A/G Ratio [0.7-1.6] 0.9 (05/30/17 7:29 PM) Calcium Lvl 9.4 mg/dL [8.5-10.5 mg/dL] (05/30/17 7:29 PM) ALT [0-65 unit/L] 26 unit/L (05/30/17 7:29 PM) AST [0-37 unit/L] 19 unit/L (05/30/17 7:29 PM) Alk Phos [39-136 66 unit/L unit/L] (05/30/17 7:29 PM) Bili Total [0.2-1.3 0.2 mg/dL mg/dL] (05/30/17 7:29 PM) Lipase Lvl [73-393 182 unit/L unit/L] (05/30/17 7:29 PM) 1Result Comment: The eGFR is calculated using [...] 1 oldest [Reference Range]: Total CK [12-191 70 unit/L unit/L] (05/30/17 7:45 PM) Troponin-I <0.02 ng/mL [0.00-0.40 ng/mL] (05/30/17 7:45 PM) URINE AND STOOL Most recent to 1 oldest [Reference Range]: UA Turbidity [Clear] Clear (05/30/17 6:42 PM) UA Color Ltyellow *NA* (05/30/17 6:42 PM) UA pH [5.0-8.0] 7.0 (05/30/17 6:42 PM) UA Spec Grav 1.005 [<=1.030] (05/30/17 6:42 PM) UA Glucose [Negative Negative mg/dL mg/dL] *NA* (05/30/17 6:42 PM) UA Blood [Negative] Negative (05/30/17 6:42 PM) UA Ketones [Negative Negative mg/dL mg/dL] *NA* (05/30/17 6:42 PM) UA Protein [Negative Negative mg/dL mg/dL] (05/30/17 6:42 PM) UA Urobilinogen <=1.0 mg/dL [0.1-1.0 mg/dL] *NA* (05/30/17 6:42 PM) UA Bili [Negative] Negative *NA* (05/30/17 6:42 PM) UA Leuk Est Negative [Negative] (05/30/17 6:42 PM) UA Nitrite Negative [Negative] (05/30/17 6:42 PM) UA WBC [0-5 /HPF] <1 /HPF (05/30/17 6:42 PM) UA RBC [0-2 /HPF] 1 /HPF (05/30/17 6:42 PM) UA Bacteria [None Occasional /HPF Seen /HPF] *NA* (05/30/17 6:42 PM) UA Sq Epi [Few /LPF] Occasional /LPF *NA* (05/30/17 6:42 PM) HEMATOLOGY Most recent to 1 oldest [Reference Range]: WBC [3.7-10.4 K/CMM] 5.4 K/CMM (05/30/17 7:29 PM) RBC [4.20-5.40 4.39 M/CMM M/CMM] (05/30/17 7:29 PM) Hgb [12.0-16.0 g/dL] 13.7 g/dL (05/30/17 7:29 PM) Hct [36.0-48.0 %] 39.8 % (05/30/17 7:29 PM) MCV [80.0-98.0 fL] 90.6 fL (05/30/17 7:29 PM) MCH [27.0-31.0 pg] 31.2 pg *HI* (05/30/17 7:29 PM) MCHC [32.0-36.0 34.5 g/dL g/dL] (05/30/17 7:29 PM) RDW [11.5-14.5 %] 13.8 % (05/30/17 7:29 PM) MPV [7.4-10.4 fL] 8.9 fL (05/30/17 7:29 PM) Platelet [133-450 242 K/CMM K/CMM] (05/30/17 7:29 PM) Segs [45.0-75.0 %] 53.3 % (05/30/17 7:29 PM) Lymphocytes 36.6 % [20.0-40.0 %] (05/30/17 7:29 PM) Monocytes [2.0-12.0 6.9 % %] (05/30/17 7:29 PM) Eosinophils [0.0-4.0 2.3 % %] (05/30/17 7:29 PM) Basophils [0.0-1.0 0.9 % %] (05/30/17 7:29 PM) Segs-Bands # 2.9 K/CMM [1.5-8.1 K/CMM] (05/30/17 7:29 PM) Lymphocytes # 2.0 K/CMM [1.0-5.5 K/CMM] (05/30/17 7:29 PM) Monocytes # [0.0-0.8 0.4 K/CMM K/CMM] (05/30/17 7:29 PM) Eosinophils # 0.1 K/CMM [0.0-0.5 K/CMM] (05/30/17 7:29 PM) Immunizations No data available for this [...]
[2018-03-01] MEDS ORDERED: SODIUM CHLORIDE 0.9% 1000ML 1,000 ML IV STA (00:22)
[2018-03-01] MEDS ORDERED: ONDANSETRON HCL INJ 2 MG/ML VIAL IV STA (00:22)
[2018-03-01 01:22] LABS: BASOPHILS # (AUTO) 0.1 (0.0-0.1); BASOPHILS % 0.4 % (0.0-1.0); EOSINOPHILS # (AUTO) 0.1 (0.0-0.4); EOSINOPHILS % 0.8 % (0.0-6.0); HEMATOCRIT 41.4 % (34.2-44.1); HEMOGLOBIN 14.2 g/dL (12.0-16.0); LYMPHOCYTES # (AUTO) 0.5 (1.0-3.2); LYMPHOCYTES % 3.9 % (18.0-39.1); MEAN CORPUSCULAR HEMOGLOBIN 30.3 pg (28-32); MEAN CORPUSCULAR HGB CONC 34.3 g/dL (31-35); MEAN CORPUSCULAR VOLUME 88.5 fL (81-99); MONOCYTES # (AUTO) 0.8 (0.2-0.8); MONOCYTES % 6.7 % (4.4-11.3); NEUTROPHILS # (AUTO) 10.6 (2.1-6.9); NEUTROPHILS % 87.8 % (38.7-80.0); PLATELET COUNT 261 x10e3/uL (140-360); RED BLOOD COUNT 4.68 x10e6/uL (3.6-5.1); RED CELL DISTRIBUTION WIDTH 13.4 % (11.7-14.4)
[2018-03-01 01:26] LABS: CLARITY,URINE HAZY (CLEAR); COLOR,URINE YELLOW (YELLOW)
[2018-03-01 01:27] LABS: BILIRUBIN,URINE NEGATIVE (NEGATIVE); KETONES,URINE NEGATIVE (NEGATIVE); LEUKOCYTE ESTERASE ,URINE NEGATIVE (NEGATIVE); NITRITE,URINE NEGATIVE (NEGATIVE); PROTEIN,URINE DIPSTICK TRACE (NEGATIVE); URINE UROBILINOGEN 0.2 mg/dL (0.2 - 1)
[2018-03-01 01:38] LABS: BACTERIA,URINE MODERATE /HPF; EPITHELIAL CELLS,URINE FEW /LPF; MUCUS,URINE FEW (RARE); WBC,URINE (MAN) 0-5 /HPF (0-5)
[2018-03-01] MEDS ORDERED: PROZAC20 MG PO (01:39)
[2018-03-01] MEDS ORDERED: ATORVASTATIN CA10 MG PO (01:39)
[2018-03-01] MEDS ORDERED: HYDROCHLOROTHIA25 MG PO (01:39)
[2018-03-01] MEDS ORDERED: CLONIDINE HCL0.1 MG PO (01:39)
[2018-03-01] MEDS ORDERED: GABAPENTIN100 MG PO (01:39)
[2018-03-01 01:41] LABS: ALBUMIN/GLOBULIN RATIO 1.1 (0.8-2.0); ANION GAP 18.2 mmol/L (8-16); CALCIUM 9.5 mg/dL (8.4-10.2); CREATININE, SERUM 0.95 mg/dL (0.57-1.11); POTASSIUM 3.2 mmol/L (3.5-5.1)
[2018-03-01 01:42] LABS: AMYLASE 61 U/L (25-125)
[2018-03-01 02:09] LABS: LIPASE 20 U/L (8-78)
[2018-03-01] MEDS ORDERED: SODIUM CHLORIDE 0.9% 1000ML 1,000 ML IV SCH (02:30)
[2018-03-01] MEDS ORDERED: POTASSIUM CHLORIDE 20MEQ/100ML 100 ML IV ONE (02:30)
--- NOTE | 2018-03-01 02:53 | Diagnostic Imaging Report ---
EXAM: CT Abdomen and Pelvis WITH contrast INDICATION: Abdominal pain. COMPARISON: None. TECHNIQUE: Abdomen and pelvis were scanned utilizing a multidetector helical scanner from the lung base to the pubic symphysis after administration of IV contrast. Coronal and sagittal reformations were obtained. Routine protocol was performed. Scan was performed when during portal venous phase. IV CONTRAST: 100 mL of Isovue-370 ORAL CONTRAST: Water COMPLICATIONS: None RADIATION DOSE: Total DLP: 425.9 mGy*cm Estimated effective dose: (DLP x 0.015 x size factor) mSv Dose modulation, iterative reconstruction, and/or weight based adjustment of the mA/kV was utilized to reduce the radiation dose to as low as reasonably achievable. FINDINGS: LINES and TUBES: None. LOWER THORAX: Right lower lobe subsegmental atelectasis or scarring. HEPATOBILIARY: No focal hepatic lesions. No biliary ductal dilation. Minimal pneumobilia in the left hepatic lobe (series 2 image 20). Recommend correlation for sphincterotomy. GALLBLADDER: Absent. SPLEEN: No splenomegaly. PANCREAS: No focal masses or ductal dilatation. ADRENALS: No adrenal nodules KIDNEYS/URETERS: Kidneys enhance symmetrically. No hydronephrosis. Bilateral renal cysts measuring up to 4 cm in the right kidney and 5.4 cm and the left kidney. Some of the left renal cysts are mildly complicated with 1.6 cm cyst with a single thin septation (coronal image 67) and minimal calcification on the lateral wall of the 5.4 cm cyst. Additional subcentimeter hypodensities are too small to characterize. No stones. GI TRACT: No abnormal distention, wall thickening, or evidence of bowel obstruction. Appendix is normal. PELVIC ORGANS/BLADDER: Unremarkable. LYMPH NODES: No lymphadenopathy. VESSELS: There is mild atherosclerotic disease in the aorta and major arterial branches. No abdominal aortic aneurysm. PERITONEUM / RETROPERITONEUM: No free air or fluid. BONES: Age indeterminate compression deformities of T11 and L1 with approximately 30-40% height loss. SOFT TISSUES: Unremarkable. IMPRESSION: 1. No acute abnormalities in the abdomen or pelvis. 2. Minimal pneumobilia. Recommend correlation for sphincterotomy. 3. Bilateral renal cysts, some of which are mildly complicated. Consider follow up renal ultrasound in 12 months. 4. Age indeterminate compression deformities of T11 and L1 with approximately 30-40% height loss. Signed by: DR. Jose Manuel Albright MD on 03/01/2018 2:50 AM
[2018-03-01] MEDS ORDERED: DIPHENOXYLATE/ATROPINE TAB PO ONE (04:30)
[2018-03-01 06:06] VITALS: BP 144/86
[2018-03-01] MEDS ORDERED: SODIUM CHLORIDE 0.9% 50ML 50 ML ONE (06:40)
[2018-03-01] MEDS ORDERED: IOPAMIDOL 370 MG/ML 200 ML INFUS..BTL INJ ONE (06:40)
== END 2018-03-01 06:34 | disposition home or self-care (01) ==
LOC: ER 23:58
DX: R11.2 Nausea with vomiting, unspecified (principal); R19.7 Diarrhea, unspecified; R10.9 Unspecified abdominal pain; K52.9 Noninfective gastroenteritis and colitis, unspecified
CPT/HCPCS: 36415; 74177; 80053; 81001; 82150; 83690; 85025; 99284; J2405; J3480; J7030; Q9967

== ENCOUNTER 2018-03-21 11:59 | Emergency (ER) | payer OTHER ==
[~2018-03-21] VITALS: Ht 156.2 cm; Wt 71.2 kg
[~2018-03-21 11:59] MED LIST changes: +ATORVASTATIN CA10 MG PO; +CLONIDINE HCL0.1 MG PO; +GABAPENTIN100 MG PO; +HYDROCHLOROTHIA25 MG PO; +PROZAC20 MG PO
--- OUTSIDE RECORDS SUMMARY | 2018-03-21 12:03 | XMS REPORT | Clinical Summary ---
Author Author [facility] Organization [facility] Address Unknown Phone Unavailable Care Team Providers Care Customs Guard Name Role Phone Manning Jorge Stewartsantosh SALAS PCP Unavailable Allergies Comments [...] Not on file Results Not on fileafter 03/20/2017 Insurance Payer Benefit Subscriber ID Type Phone Address Plan / Group BLUE CROSS/BLUE SHIELD BCBS ADV xxxxxxxxxxxx [phone] [address] [place] [address] EXCHANGE Advance Directives For more information, please contact: [facility] [address] [place] [address] Date Inactivated Comments Code Status Date Activated 12/13/2014 10:29 PM Full Code 12/13/2014 2:20 PM This code status was determined by: Patient 12/13/2014 2:20 PM Full Code 12/13/2014 11:45 AM This code status was determined by: Patient
--- OUTSIDE RECORDS SUMMARY | 2018-03-21 12:03 | XMS REPORT | Clinical Summary ---
Author Author [facility] Address Unknown Phone Unavailable Care Team Providers Care Director Global Intelligence Name Role Phone Asked, No Pcp PCP [...] by 0 mg tablet mouth. 12/16/2017 Discontinued mv,Ca,xyt-US-lnsmai Take 1 tablet 0 no.157 (ESTROVEN MAXIMUM by mouth STRENGTH) 400 mcg tablet daily. 12/16/2017 Discontinued EVENING PRIMROSE OIL ORAL Take 500 mg 0 by mouth. 12/16/2017 Discontinued omega 2-kxo-dmb-fish oil Take 1 0 (FISH OIL) 1,000 [...] radiculopathy, chronic 09/09/2017 Office Visit Neurology after 03/20/2017 Family History Medical History Relation Name Comments [...] Paresthesia RIBONUCLEIC ANTIBODY Routine 10/10/2017 Sensory neuropathy (INSURANCE ACCOUNT EXECUTIVE) 9:27 AM CDT Paresthesia HEPATITIS ACUTE PANEL [...] 12:00 PM CDT with underlying disease after 03/20/2017 Results * MRI Brain Wo Contrast (12/21/2017 3:37 PM CDT) Narrative Performed At [facility] EXAMINATION:MRI BRAIN WO CONTRAST CLINICAL HISTORY:R53.83 Other fatigue, R20.0 Anesthesia of skin, seizures COMPARISON:None. Findings: No intracranial hemorrhage, acute ischemia, extra-axial fluid collections or parenchymal mass lesions. No hydrocephalus. No suspicious focal bone marrow lesions. Major flow voids are maintained. No abnormal susceptibility on Bruin imaging. IMPRESSION: No acute intracranial abnormalities or mass lesions. [facility]-[id number] Procedure Note Interface, Radiology Results Incoming - 12/21/2017 5:13 PM CDT EXAMINATION: MRI BRAIN WO CONTRAST CLINICAL HISTORY: R53.83 Other fatigue, R20.0 Anesthesia of skin, seizures COMPARISON: None. Findings: No intracranial hemorrhage, acute ischemia, extra-axial fluid collections or parenchymal mass lesions. No hydrocephalus. No suspicious focal bone marrow lesions. Major flow voids are maintained. No abnormal susceptibility on Bruin imaging. IMPRESSION: No acute intracranial abnormalities or mass lesions. [facility]-[id number] Performing Organization Address City/State/Zipcode Phone Number [facility] [address] [place] [address] * Heavy Metals Panel, Blood (12/16/2017 1:42 PM CDT) Arsenic <2 <23 mcg/L [facility] Comment: ANDRADE BARRERA Whole Blood Arsenic Level> 100 mcg/L is indicative of acute/chronic exposure. Urine is usually the best specimen for the analysis of arsenic in body fluids. Blood levels tend to be low even when urine concentrations are high. Mercury, blood 2 <11 mcg/L [employer] BARRERA Lead, blood <1 <5 mcg/dL [facility] Comment: ZAFARPHU BARRERA Lead: to 6 [...] for recommended interventions. Lead(B) collection sample VENOUS [employer] BARRERA Specimen Blood Resulting Agency Comment Performing Organization Information: Site ID: SLI Name: [employer] [facility] Address: [address] [place] [phone] Director: Tuan Boyle M.D., Ph.D Performing Organization Address [facility] Centercode Phone Number [employer] [address] [place] [address] [facility] * BRIAN SCHNEIDER VIRUS DNA, QL REAL TIME PCR (12/16/2017 1:42 PM CDT) Source EDTA [facility] EBV DNA, QL PCR NOT DETECTED [employer] Comment: REFERENCE RANGE: NOT DETECTED This test was developed and its analytical performance characteristics have been determined by [facility]. It has not been cleared or approved by FDA. This assay has been validated pursuant to the CLIA regulations and is used for clinical purposes. Resulting Agency Comment Performing Organization Information: Site ID: [id number] Name: [facility] Address: [address] [place] [id number] Director: Eduardo Whitman MD Performing Organization Address City/[facility]/Zipcode Phone Number [facility] [address] [place] [address] [phone] * RQEZ RNA POLYMERASE III (NOT ORDERABLE) (10/10/2017 9:27 AM CDT) RNA polymerase III TNP Units [facility] Comment: DIAGNOSTICS/ZAFAR Test Not Performed. Reflex [facility] testing not required. Resulting Agency Comment Performing Organization Information: Site ID: EZ Name: [facility]/Zafar [facility], Address: [address] [place] [address] Director: Mayi Francois MD,PhD,CIELO Performing Organization Address [facility] Cent[facility]oga Phone Number [facility]/ZAFAR [address] [place] [address] [facility] [address] * Paraneoplastic antibody, western blot (10/10/2017 9:27 AM CDT) ANNA1 (Hu) Ab, WB <11 <11 SI [facility]/ZAFAR [facility] ANNA2 (Ri) Ab, WB <11 <11 SI [facility] PCA1 (Yo) Ab, WB <11 <11 SI [facility] CRMP5/CV2 Ab, WB <11 <11 SI [facility]/ZAFAR [facility] Amphiphysin Ab, WB <11 <11 SI [facility]/ZAFAR [facility] GAD65 Ab, WB <11 <11 SI [facility] Comment: DIAGNOSTICS/ZAFAR This test was developed and [facility] its analytical performance characteristics have been determined by [facility]. It has not been cleared or approved by FDA. This assay has been validated pursuant to the CLIA regulations and is used for clinical purposes. Resulting Agency Comment Performing Organization Information: Site ID: EZ Name: [facility], Address: [address] [place] [phone] Director: Mayi Francois MD,PhD,CIELO Performing Organization Address [facility] Centercode Phone Number [facility] [address] [place] [address] [facility] [address] * Paraneoplastic Antibody Evaluation w/Reflex to Titer and Western Blot,Basic (10/10/2017 9:27 AM CDT) Tissue IFA observation(s) SEE NOTE [facility] Comment: DIAGNOSTICS/ZAFAR Fluorescence observed on [facility] monkey cerebellum substrate. A known pattern associated with specific analytes in this panel was not observed. Staining of HEp2 cells suggests nuclear non-neuronal specific antibodies are present. Testing suggests presence of autoantibodies not included in this panel. Anti-neuronal nuclear Ab, NEGATIVE NEGATIVE [facility] type 1 DIAGNOSTICS/ZAFAR [facility] Anti-neuronal nuclear Ab, NEGATIVE NEGATIVE [facility] type 2 [facility] Anti-neuronal nuclear Ab, NEGATIVE NEGATIVE [facility] type 3 [facility] PCA1 (Yo) Ab, IFA NEGATIVE NEGATIVE [facility] PCA2 Ab, IFA NEGATIVE NEGATIVE [facility] QUOTER Tr (DNER) Ab, IFA NEGATIVE NEGATIVE [facility] AGNA/SOX1 Ab, IFA NEGATIVE NEGATIVE [facility] Amphiphysin Ab NEGATIVE NEGATIVE [facility] CRMP5/CV2 Ab, IFA NEGATIVE NEGATIVE [facility] Comment: DIAGNOSTICS/ZAFAR This test was developed and [facility] its analytical performance characteristics have been determined by [facility]. It has not been cleared or approved by [facility]. This assay has been validated pursuant to the CLIA regulations and is used for clinical purposes. Striated muscle Ab, IgG NEGATIVE NEGATIVE [facility] screen Comment: DIAGNOSTICS/ZAFAR This test was developed and [facility] its analytical performance characteristics have been determined by [facility]. It has not been cleared or approved by FDA. This assay has been validated pursuant to the CLIA regulations and is used for clinical purposes. Voltage-gated calcium <30 <30 pmol/L [facility] channel (VGCC) Ab DIAGNOSTICS/[facility] Voltage-gated potassium <80 <80 pmol/L [facility] channel (VGKC) Ab Comment: [employer]er/ZAFAR This test was developed and [facility] its analytical performance characteristics have been determined by [facility]. It has not been cleared or approved by FDA. This assay has been validated pursuant to the CLIA regulations and is used for clinical purposes. Acetylcholine receptor <53 <53 pmol/L [facility] ganglionic (alpha 3) Ab Comment: mediaBunker/ZAFAR This test was developed and [facility] its analytical performance characteristics have been determined by [facility]. It has not been cleared or approved by FDA. This assay has been validated pursuant to the CLIA regulations and is used for clinical purposes. Voltage gated calcium <54 <54 pmol/L [facility] channel (VGCC) type N Ab Comment: [employer]er/ZAFAR This test was developed and [facility] its analytical performance characteristics have been determined by [facility]. It has not been cleared or approved by FDA. This assay has been validated pursuant to the CLIA regulations and is used for clinical purposes. Acetylcholine receptor <0.30 nmol/L [facility] binding Ab Comment: media[employer]er/ZAFAR Reference Ranges for [facility] Acetylcholine Receptor Binding Antibody: Negative: < or=0.30 nmol/L Equivocal:0.31-0.49 nmol/L Positive: > or=0.50 nmol/L Specimen Blood Resulting Agency Comment Performing Organization Information: Site ID: EZ Name: [employer] [facility], Address: [address] [place] [phone] Director: Mayi Francois MD,PhD,CIELO Performing Organization Address City/[facility]/Zipcode Phone Number [employer] [address] [place] [address] [facility] [address] * Myeloperoxidase Antibody (MPO) (10/10/2017 9:27 AM [...] Performing Organization Information: Site ID: IG Name: [facility] Address: [address] [place] [address] Director: Dr. Eddie Jones Performing Organization Address [facility] Centercode Phone Number [employer] [address] [place] [address] II * INTERPRETATION (REFLEX [facility]) [...] sclerosis and/or interstitial lung disease, for example, PM-Ddq092, PM-Scl75, CENP A, CENP B, RNA Polymerase III subunit RP11, RNA Polymerase III subunit RP155, U1-snRNP INSURANCE ACCOUNT EXECUTIVE A, U1-snRNP INSURANCE ACCOUNT EXECUTIVE C, U1-snRNP INSURANCE ACCOUNT EXECUTIVE 70kd, U3-snRNP (fibrillarin), Th/To, and/or Scl-70 antibodies. Resulting Agency Comment Performing Organization Information: Site ID: EZ Name: [facility]/[employer] [facility], Address: [address] [place], [place] [id number] Director: Mayi Francois MD,PhD,CIELO Performing Organization Address City/[facility]/Zipcode Phone Number [employer] [address] [place] [address] [facility] [address] * CENTROMERE B ANTIBODY (10/10/2017 9:27 AM CDT) Centromere antibody TNP AI [facility] Comment: DIAGNOSTICS/ZAFAR Test Not Performed. Reflex [facility] testing not required. Resulting Agency Comment Performing Organization Information: Site ID: EZ Name: [facility] [facility], Address: [address] [place], [place] [address] Director: Mayi Francois MD,PhD,CIELO Performing Organization Address [facility]/Zipcode Phone Number [employer] [address] [place] [address] [facility] [address] * Scl-70 antibody (10/10/2017 9:27 AM CDT) Scleroderma SCL-70 Ab TNP AI [facility] Comment: DIAGNOSTICS/ZAFAR Test Not Performed. Reflex [facility] testing not required. Resulting Agency Comment Performing Organization Information: Site ID: EZ Name: [facility], Address: [address] [place] [phone] Director: Mayi Francois MD,PhD,CIELO Performing Organization Address [facility] Centercoga Phone Number [facility] [address] [place] [address] [facility] [address] * HILDA SCREEN, IFA (10/10/2017 9:27 AM CDT) HILDA screen NEGATIVE NEGATIVE [facility] Comment: DIAGNOSTICS/ZAFAR HILDA IFA is a first line screen [facility] for detecting the presence of up to approximately 150 autoantibodies in various autoimmune diseases. A negative HILDA IFA result suggests HILDA-associated autoimmune diseases are not present at this time. Visit Physician FAQs for interpretation of all antibodies in the [place], prevalence, and association with diseases at http://education.Mapluck/faq/YLS417 Resulting Agency Comment Performing Organization Information: Site ID: EZ Name: [facility], Address: [address] [place] [phone] Director: Mayi Francois MD,PhD,CIELO Performing Organization Address [facility] Phone Number [facility] [address] [place] [address] [facility] [address] * Ribonucleic antibody (INSURANCE ACCOUNT EXECUTIVE) (10/10/2017 9:27 AM CDT) Ribonucleic antibody <1.0 NEG <1.0 NEG AI [facility] (INSURANCE ACCOUNT EXECUTIVE) [facility] II Specimen Blood Resulting Agency Comment Performing Organization Information: Site ID: IG Name: [facility] Address: [address] [facility] [place] [address] Director: Dr. Eddie Jones Performing Organization Address [facility] Centercode Phone Number [facility] DIAG[place]STICSDARRELL [place] [phone] [place] [address] II * ANTINUCLEAR ANTIBODIES TITER AND PATTERN (10/10/2017 9:27 AM CDT) HILDA pattern TNP [facility] Comment: DIAGNOSTICS/ZAFAR Test Not Performed. Reflex [facility] testing not required. Reference Ranges for Anti-Nuclear Ab Titer: <1:40Negative 1:40-1:80Low Antibody Level >1:80Elevated Antibody Level Test Not Performed. Reflex testing not required. Resulting Agency Comment Performing Organization Information: Site ID: EZ Name: [facility], Address: [address] [place] [phone] Director: Mayi Francois MD,PhD,CIELO Performing Organization Address City/[facility] Centercode Phone Number [employer] [address] [place], [place] [phone] [facility] [address] * SSA/SSB antibody (10/10/2017 9:27 AM CDT) Sjogren's SS-A antibody <1.0 NEG <1.0 NEG AI [employer]AL[employer] II Sjogren's SS-B antibody <1.0 NEG <1.0 NEG AI [facility] II Specimen Blood Resulting Agency Comment Performing Organization Information: Site ID: IG Name: [facility] Address: [address] [place] [address] Director: Dr. Eddie Jones Performing Organization Address [facility] Centercoga Phone Number [facility] [employer] [place] [address] II * Heavy metals panel 3, blood (10/10/2017 9:27 AM CDT) Cadmium, blood <0.6 <5.1 mcg/L [facility] Comment: ANDRADE BARRERA Adults, Non-Smokers: < or=1.7 mcg/L Adults, Smokers: < or=5.0 mcg/L OSHA Reference Range:< or=5.0 mcg/L Toxic Concentration: Early signs of toxicity have been observed at 30 mcg/L This test was developed and its analytical performance characteristics have been determined by [facility]. It has not been cleared or approved by the US Food and Drug Administration. This assay has been validated pursuant to the CLIA regulations and is used for clinical purposes. Specimen Blood Resulting Agency Comment Performing Organization Information: Site ID: SLI Name: [facility] Address: [address] [place] [address] Director: Tuan Boyle M.D., Ph.D Performing Organization Address [facility] Phone Number [employer] [address] [place] [address] [facility] * Celiac disease panel (10/10/2017 9:27 AM CDT) Interpretation SEE NOTE [facility] Comment: DIAGNOSTICS/[employer] No serological evidence of SJC celiac disease. tTG IgA may normalize in individuals with celiac disease who maintain a gluten-free diet. Consider HLA DQ2 and DQ8 testing to rule out celiac disease. Celiac disease is extremely rare in the absence of DQ2 or DQ8. Tissue transglutaminase <1 U/mL [facility] Ab, IgA Comment: DIAGNOSTICS/[employer] <4 No Antibody SJC Detected > OR=4 Antibody Detected IgA 145 81 - 463 mg/dL [facility]/[employer] [address] [facility] Specimen Blood Resulting Agency Comment Performing Organization Information: Site ID: EZ Name: [employer] [facility], Address: [address] [place] [phone] Director: Mayi Francois MD,PhD,CIELO Performing Organization Address [facility] Phone Number [employer] [address] [place], [place] [phone] [facility] [address] * Copper level, serum (10/10/2017 9:27 AM CDT) Copper 129 70 - 175 mcg/dL [facility] Comment: ANDRADE BARRERA This test was developed and its analytical performance characteristics have been determined by [facility]. It has not been cleared or approved by the US Food and Drug Administration. This assay has been validated pursuant to the CLIA regulations and is used for clinical purposes. Specimen Blood Resulting Agency Comment Performing Organization Information: Site ID: SLI Name: [facility] Address: [address] [place] [address] Director: Tuan Boyle M.D., Ph.D Performing Organization Address [facility] Phone Number [employer] [address] [place], [place] [phone] BARRERA * Hepatitis acute panel (10/10/2017 9:27 AM CDT) Hepatitis A IgM NON-REACTIVE NON-REACTIVE [facility] [place] Hepatitis B surface Ag NON-REACTIVE NON-REACTIVE [employer] [place] Hepatitis B core IgM NON-REACTIVE NON-REACTIVE [facility] [employer] [place] Hepatitis C Ab NON-REACTIVE NON-REACTIVE [facility] [place] Signal/cutoff 0.01 <1.00 [facility] [place] Specimen Blood Resulting Agency Comment Performing Organization Information: Site ID: RGA Name: [facility] Address: [address] [place] [address] Director: Jannette Chavarria Performing Organization Address [facility] Cent[facility] Phone Number [employer] [address] [address] * Rheumatoid factor (10/10/2017 9:27 AM CDT) Rheumatoid factor <14 <14 IU/mL [facility] [place] Specimen Blood Resulting Agency Comment Performing Organization Information: Site ID: RGA Name: [facility] Address: [address] [place] [phone] Director: Jannette Chavarria Performing Organization Address [facility] Phone Number [employer] [place] [phone] * Angiotensin converting enzyme (10/10/2017 9:27 AM CDT) Angiotensin converting 60 9 - 67 U/L [employer] enzyme fflickVING Specimen Blood Resulting Agency Comment Performing Organization Information: Site ID: IG Name: [facility] Address: [address] [place] [phone] Director: Dr. Eddie Jones Performing Organization Address City/[facility] Medical Centercode Phone Number [employer] [address] II * Serum electrophoresis (10/10/2017 9:27 AM CDT) Protein 6.4 6.1 - 8.1 g/dL [employer] II Albumin, S 3.8 3.8 - 4.8 g/dL [employer] II Jadug-1-cdnzfyos 0.3 0.2 - 0.3 g/dL [facility] II Uqhhx-5-tlidcpou 0.8 0.5 - 0.9 g/dL [employer] II Beta-1 globulin 0.4 0.4 - 0.6 g/dL [facility] II Beta-2 globulin 0.3 0.2 - 0.5 g/dL [facility] II Gamma, CSF 0.8 0.8 - 1.7 g/dL [facility] II Interpretation Comment: [facility] Normal Electrophoretic Pattern [employer]er-LALO II Specimen Blood Resulting Agency Comment Performing Organization Information: Site ID: IG Name: [facility] Address: [address] [place] [phone] Director: Dr. Eddie Jones Performing Organization Address City/[facility] Centercode Phone Number [facility] [employer] [address] II * Folate level (10/10/2017 9:27 AM CDT) Folate 18.0 ng/mL [facility] Comment: [place] Reference Range Low: <3.4 Borderline:3.4-5.4 Normal:>5.4 Specimen Blood Resulting Agency Comment Performing Organization Information: Site ID: RGA Name: [facility] Address: [address] [place] [phone] Director: Jannette Chavarria Performing Organization Address [facility] Phone Number [facility] [employer] [address] [address] * EMG General Request (09/28/2017 [...] noted at the wrist/CTS Jannette Maddox M.D. Crsithian Alvarez Department of Neurology [address] [place], [place] Office: [phone] Narrative Performed At NERVE CONDUCTION AND ELECTROMYOGRAPHY REPORT [facility] Neu[facility] [place]; [place], [place] [address]; Name: Fady Morocho Date of Procedure: 09/28/17 [...] Dist. amp. Prox Amp. Distance Velocity Left [id number] Left Superficial Peroneal ydsivd56.0 Left Saphenousabsent Right Soleus (H Reflex Response [...] CDT) TSH 1.03 0.40 - 4.50 mIU/L [facility] [place] Specimen Blood Narrative Performed At FASTING: UNKNOWN [facility] Resulting Agency Comment Performing Organization Information: Site ID: RGA Name: [facility] Address: [address] [place] [phone] Director: Jannette Chavarria Performing Organization Address City/State/Zipcode Phone Number [employer] [address] [address] * Hemoglobin A1c (09/09/2017 12:00 PM CDT) Hemoglobin A1C 5.3 <5.7 % of total Hgb [facility] Comment: [place] For the purpose of screening for the presence of diabetes: <5.7% Consistent with the absence of diabetes 5.7-6.4%Consistent with increased risk for diabetes (predi abetes) > or=6.5%Consistent with diabetes This assay result is consistent with a decreased risk of diabetes. Currently, no consensus exists regarding use of hemoglobin A1c for diagnosis of diabetes in children. According to [place] Diabetes Association (ADA) guidelines, hemoglobin A1c <7.0% represents optimal control in non- diabetic patients. Different metrics may apply to specific patient populations. Standards of Medical Care in Diabetes(ADA). Specimen Blood Narrative Performed At FASTING: UNKNOWN [facility] Resulting Agency Comment Performing Organization Information: Site ID: RGA Name: [facility] Address: [address] [place] [place] [address] Director: Jannette Chavarria Performing Organization Address [facility] [place] [address] * Vitamin B12 level (09/09/2017 12:00 PM CDT) Vitamin B12 528 200 - 1,100 pg/mL [employer] [place] Specimen Blood Narrative Performed At FASTING: UNKNOWN [facility] Resulting Agency Comment Performing Organization Information: Site ID: [id number] Name: [facility] Address: [address] [place] [id number] Director: Jannette Chavarria Performing Organization Address [facility] [place] [address] * Creatine kinase, total (CPK) (09/09/2017 12:00 PM CDT) Creatine kinase 68 29 - 143 U/L [employer] [facility] [place] Specimen Blood Narrative Performed At FASTING: UNKNOWN [facility] Resulting Agency Comment Performing Organization Information: Site ID: [id number] Name: [facility] Address: [address] [place] [id number] Director: Jannette Chavarria Performing Organization Address [facility] Cent[facility] Phone Number [employer] [address] [phone] after 03/20/2017 Insurance Payer Benefit Subscriber ID Type Phone Address Plan / Group [employer] [facility] xxxxxxxxxxxx Exchange EXCHANGE [employer] Advance Directives Patient has advance care planning documents on file. For more information, melanie frost contact: Antonio Tijerina [address] [place] [address]
--- OUTSIDE RECORDS SUMMARY | 2018-03-21 12:04 | XMS REPORT | Continuity of Care Document ---
Author Author [facility] Interface Address Unknown Phone Unavailable Problems Problem Status Onset Date Classification Date Reported Comments Source C/O EDEMA Active 12/20/2017 [facility] EDEMA LEGS Active 10/24/2017 [facility] ALLERGIC REACTION Active 09/16/2017 [facility] Dizziness and giddiness 06/07/2017 09/05/2017 [facility] Episodic lightheadedness 05/30/2017 09/05/2017 [facility] RASH Active 05/30/2017 [facility] CHEST PAIN Active 04/13/2017 [facility] FOLLOW UP Active 04/11/2017 [facility] PROLAPSE MV, RBBB, TACHYCARDIA Active 02/28/2017 [facility] Discharge Diagnosis: Shortness of breath 02/01/2017 02/04/2017 [facility] Discharge Diagnosis: Anxiety 02/01/2017 02/04/2017 [facility] SOB Active 01/31/2017 [facility] Discharge Diagnosis: Abdominal pain 11/29/2016 12/02/2016 [facility] Discharge Diagnosis: Chest pain 11/29/2016 12/02/2016 [facility] Discharge Diagnosis: Heart palpitations 11/27/2016 11/30/2016 [facility] Chest pain, unspecified 08/10/2017 [facility] Palpitations 08/10/2017 [facility] Palpitations Active Problem 08/10/2017 [facility] Anxiety Resolved Problem 09/05/2017 [facility] Medical [facility] Depression Resolved Problem 09/05/[address] [facility] GERD - Gastro-esophageal reflux disease Resolved Problem 09/05/2017 [facility] Pancreatitis Resolved Problem 09/05/2017 [facility] PAT (<span ID="[id number]">Confirmed</span>) Active Problem 09/05/2017 [facility], [facility] BBB (<span ID="[id number]">Confirmed</span>)<sup>1</sup> Active Problem 09/05/2017 Right [facility] 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 MVP (<span ID="[id number]">Confirmed</span>) Active Problem 09/05/2017 [facility] Anxiety disorder, unspecified 08/10/2017 [facility] Hyperlipidemia, unspecified 08/10/2017 [facility] Essential hypertension 09/05/2017 [facility] Nonrheumatic mitral prolapse 09/05/2017 [facility] Supraventricular tachycardia 09/05/2017 [facility] Nonspecific intraventricular block 09/05/2017 [facility] Palpitations Active Problem 09/05/2017 [facility] Medications Medication Details Route Status Patient Instructions Ordering Provider Order Date Source gabapentin 100 MG Oral Capsule 100 mg=1 cap, PO, TID, 0 Refill(s) Active 07/23/2017 [facility] atorvastatin 10 MG Oral Tablet [Lipitor] 10 mg=1 tab, PO, Daily, Repeat labs in 3 months, # 90 tab, 0 Refill(s), Pharmacy: [id number], For Refill request please fax to [phone]. E-script request not accepted. Active 06/22/2017 [facility] atorvastatin 10 MG Oral Tablet [Lipitor] 10 mg=1 tab, PO, Daily, X 7 day, # 7 tab, 0 Refill(s), Pharmacy: [id number], For Refill request please fax to [phone]. E-script request not accepted. No Longer Active 06/17/2017 [facility] Sodium Chloride 0.9% (Bolus) IV 1,000 mL, Infuse Over: 1 hr, Route: IV, ONCE, Priority: STAT, Dosing Weight 70 kg, Start date: 05/30/17 19:43:00 CDT, Stop date: 05/30/17 19:43:00 CDT Inactive 05/31/2017 [facility] Calcium Carbonate 1500 MG / Cholecalciferol 800 UNT Oral Tablet [Caltrate Plus D 600/800] 0.5 tab, PO, BID, 0 Refill(s) Active 05/03/2017 [facility] magnesium oxide 500 mg oral tablet 250 mg=0.5 tab, PO, Daily, 0 Refill(s) Active 05/03/2017 [facility] Imdur 30 mg oral tablet, extended release 30 mg=1 tab, PO, QAM, # 30 tab, 11 Refill(s), Pharmacy: [facility], For Refill request please fax to [phone]. E-script request not accepted. Active 04/22/2017 [facility] valacyclovir 500 MG Oral Tablet [Valtrex] 0 Refill(s) Active 04/18/2017 [facility] ondansetron 4 mg oral tablet PO, PRN, 0 Refill(s) Active 04/18/2017 [facility] hyoscyamine 0.125 mg oral tablet PO, Q4H, 0 Refill(s) Active 04/18/2017 [facility] Hydroxyzine Hydrochloride 25 MG Oral Tablet 25 mg=1 tab, PO, Bedtime, PRN itching, # 30 tab, 0 Refill(s) Active 03/04/2017 [facility] pantoprazole 40 mg oral enteric coated tablet 40 mg=1 tab, PO, BID, # 90 tab, 0 Refill(s) Active 03/04/2017 [facility] azelastine / fluticasone 1 spray, NASAL, BID, 0 Refill(s) Active 03/04/2017 [facility] metoprolol tartrate 25 mg oral tablet 25 mg=1 tab, PO, BID, # 60 tab, 0 Refill(s) Active 03/04/2017 [facility] Bifidobacterium lactis [id number] UNT / Bifidobacterium longum [id number] UNT / Lactobacillus acidophilus [id number] UNT Oral Capsule [Florajen3] 1 cap, PO, Daily, 0 Refill(s) Active 03/04/2017 [facility] tamsulosin 0.4 mg oral capsule 0.4 mg=1 cap, PO, Daily, # 90 cap, 0 Refill(s) Active 03/04/2017 [facility] Refresh Dry Eye Therapy 1 drp, BOTH EYES, BID, 0 Refill(s) Active 03/04/2017 [facility] LORazepam 0.5 mg oral tablet 1 mg=2 tab, PO, TID, PRN Anxiety, # 20 tab, 0 Refill(s) Active 03/04/2017 [facility] Estradiol 0.1 MG/ML Vaginal Cream [Estrace] See Instructions, Insert 2-4 gm vaginally at bedtime nightly x 2 weeks then reduce dose, # 1 tube, 3 Refill(s) Active 03/04/2017 [facility] Zantac 300 300 mg, PO, Bedtime, 0 Refill(s) Active 03/04/2017 [facility] Saline Flush 0.9% 10 mL, Route: IVP, Drug Form: INJ, Dosing Weight 71.818, kg, PRN, PRN Line Flush, Start date: 02/01/17 0:15:00 QUANTITATIVE ANALYST, Duration: 30 day, Stop date: 03/03/17 0:14:00 CSTNotes: (Same as: BD Posiflush) Inactive 02/01/2017 [facility] GI cocktail 30 mL, Route: PO, Dosing Weight 71.818, kg, ONCE, STAT, Start date: 11/29/16 3:56:00 CDT, Stop date: 11/29/16 3:56:00 CDT Inactive 11/29/2016 [facility] Metoclopramide 10 mg, Route: IVP, Drug form: INJ, ONCE, Dosing Weight 71.818, kg, Priority: STAT, Start date: 11/29/16 3:56:00 CDT, Stop date: 11/29/16 3:56:00 CDT Inactive 11/29/2016 [facility] Aspirin 325 mg, Route: PO, Drug form: TAB, ONCE, Dosing Weight 71.818, kg, Priority: STAT, Start date: 11/29/16 3:56:00 CDT, Stop date: 11/29/16 3:56:00 CDT Inactive 11/29/2016 [facility] Ativan 1 mg, Route: IVP, Drug form: INJ, ONCE, Dosing Weight 71.818, kg, Priority: STAT, Start date: 11/29/16 3:56:00 CDT, Stop date: 11/29/16 3:56:00 CDT Inactive 11/29/2016 [facility] Sodium Chloride 0.9% (Bolus) IV 1,000 mL, Infuse Over: 1 hr, Route: IV, ONCE, Priority: STAT, Dosing Weight 71.818 kg, Start date: 11/29/16 3:56:00 CDT, Duration: 1 doses or times, Stop date: 11/29/16 3:56:00 CDT Inactive 11/29/2016 [facility] Aspirin 324 mg, 4 tab, Route: PO, Drug form: [place], ONCE, Dosing Weight 72.727, kg, Priority: STAT, Start date: 11/27/16 1:28:00 CDT, Stop date: 11/27/16 1:28:00 CDTNotes: Take with food. Inactive 11/27/2016 [facility] Saline Flush 0.9% 10 mL, Route: IVP, Drug Form: INJ, Dosing Weight 72.727, kg, PRN, PRN Line Flush, Start date: 11/27/16 1:28:00 CDT, Duration: 30 day, Stop date: 12/27/16 1:27:00 CDTNotes: (Same as: BD Posiflush) Inactive 11/27/2016 [facility] Allergies, Adverse Reactions, Alerts Substance Category Reaction Severity Reaction type Status Date Reported Comments Source sulfa drugs Assertion Drug allergy Active [facility] ciprofloxacin Assertion Drug allergy Active [facility] doxycycline Assertion Drug allergy Active [facility] clindamycin Assertion Clindamycin, Clindamycin Drug allergy Active [facility] Keflex Assertion Drug allergy Active [facility] Noroxin Assertion Drug allergy Active [facility] Bactrim Assertion Drug allergy Active [facility] Vicodin Assertion Drug allergy Active [facility] LaMICtal Assertion Drug allergy Active [facility] Augmentin Assertion Drug allergy Active [facility] Immunizations Immunization Date Given Site Status Last Updated Comments Source Results Order Name Results Value Reference Range Date Interpretation Comments Source URINE AND STOOL POC UA Bili Negative *NA* (07/22/17 7:40 PM) Negative 07/23/2017 [facility] URINE AND STOOL POC UA Bld Trace *NA* (07/22/17 7:40 PM) Negative 07/23/2017 [facility] URINE AND STOOL POC UA Uro 0.2 EU/dL 0.1 - 1.0 07/23/2017 [facility] URINE AND STOOL POC UA Glu Negative mg/dL Negative mg/dL 07/23/2017 [facility] URINE AND STOOL POC UA Ket Negative mg/dL Negative mg/dL 07/23/2017 [facility] URINE AND STOOL POC UA LeukEst Negative *NA* (07/22/17 7:40 PM) Negative 07/23/2017 [facility] URINE AND STOOL POC UA Nit Negative *NA* (07/22/17 7:40 PM) Negative 07/23/2017 [facility] URINE AND STOOL POC UA Prot Negative mg/dL Negative mg/dL 07/23/2017 [facility] URINE AND STOOL POC UA pH 7.0 5.0 - 8.0 07/23/2017 [facility] URINE AND STOOL POC UA Color Yellow *NA* (07/22/17 7:40 PM) Yellow 07/23/2017 [facility] URINE AND STOOL POC UA Turbidity Clear *NA* (07/22/17 7:40 PM) Clear 07/23/2017 [facility] URINE AND STOOL POC UA SG 1.020 <=1.030 07/23/2017 [facility] Abdomen 2 views DX Abdomen 2 [...] the pelvis. IMPRESSION: 1. Unremarkable abdominal radiograph. SL:[id number] 07/22/2017 - - Read by: Mynor Gil MD Dictated Date/time: 07/22/17 20:53 Electronically Signed by: Mynor Gil MD 07/22/17 20:54 FINAL REPORT [facility] CARDIAC ENZYMES Troponin-I null 0.00 - 0.40 05/31/2017 [facility] CARDIAC ENZYMES Total CK 70 unit/L 12 - 191 05/31/2017 [facility] CHEM PANEL Lipase Lvl 182 unit/L 73 - 393 05/31/2017 [facility] ELECTROLYTES AGAP 7.7 meq/L 10.0 - 20.0 05/31/2017 [facility] ELECTROLYTES A/G Ratio 0.9 0.7 - 1.6 05/31/2017 [facility] ELECTROLYTES Globulin 3.7 g/dL 2.7 - 4.2 05/31/2017 [facility] ELECTROLYTES B/C Ratio 15 6 - 25 05/31/2017 [facility] ELECTROLYTES eGFR 73 mL/min/1.73m2 05/31/2017 Result [...] should be multiplied by the estimated BMI. [facility] ELECTROLYTES Alk Phos 66 unit/L 39 - 136 05/31/2017 [facility] ELECTROLYTES Bili Total 0.2 mg/dL 0.2 - 1.3 05/31/2017 [facility] ELECTROLYTES AST 19 unit/L 0 - 37 05/31/2017 [facility] Total Protein 7.1 g/dL 6.4 - 8.4 05/31/2017 [facility] Albumin Lvl 3.4 g/dL 3.5 - 5.0 05/31/2017 [facility] ELECTROLYTES ALT 26 unit/L 0 - 65 05/31/2017 [facility] ELECTROLYTES BUN 13 mg/dL 7 - 22 05/31/2017 [facility] ELECTROLYTES Glucose Lvl 73 mg/dL 70 - 99 05/31/2017 [facility] ELECTROLYTES CO2 33 meq/L 24 - 32 05/31/2017 [facility] Potassium Lvl 3.7 meq/L 3.5 - 5.1 05/31/2017 [facility] ELECTROLYTES Chloride Lvl 107 meq/L 95 - 109 05/31/2017 [facility] ELECTROLYTES Sodium Lvl 144 meq/L 135 - 145 05/31/2017 [facility] ELECTROLYTES Calcium Lvl 9.4 mg/dL 8.5 - 10.5 05/31/2017 [facility] ELECTROLYTES Creatinine Lvl 0.87 mg/dL 0.50 - 1.40 05/31/2017 [facility] HEMATOLOGY Eosinophils # 0.1 K/CMM 0.0 - 0.5 05/31/2017 [facility] HEMATOLOGY Monocytes # 0.4 K/CMM 0.0 - 0.8 05/31/2017 [facility] HEMATOLOGY Lymphocytes # 2.0 K/CMM 1.0 - 5.5 05/31/2017 [facility] HEMATOLOGY Segs-Bands # 2.9 K/CMM 1.5 - 8.1 05/31/2017 [facility] Basophils 0.9 % 0.0 - 1.0 05/31/2017 [facility] Eosinophils 2.3 % 0.0 - 4.0 05/31/2017 [facility] Monocytes 6.9 % 2.0 - 12.0 05/31/2017 [facility] Lymphocytes 36.6 % 20.0 - 40.0 05/31/2017 [facility] Segs 53.3 % 45.0 - 75.0 05/31/2017 [facility] MPV 8.9 fL 7.4 - 10.4 05/31/2017 [facility] Platelet 242 K/CMM 133 - 450 05/31/2017 [facility] RDW 13.8 % 11.5 - 14.5 05/31/2017 [facility] MCHC 34.5 g/dL 32.0 - 36.0 05/31/2017 [facility] MCH 31.2 pg 27.0 - 31.0 05/31/2017 [facility] MCV 90.6 fL 80.0 - 98.0 05/31/2017 [facility] Hct 39.8 % 36.0 - 48.0 05/31/2017 [facility] Hgb 13.7 g/dL 12.0 - 16.0 05/31/2017 [facility] RBC 4.39 M/CMM 4.20 - 5.40 05/31/2017 [facility] WBC 5.4 K/CMM 3.7 - 10.4 05/31/2017 [facility] URINE AND STOOL UA Urobilinogen <=1.0 mg/dL 0.1 - 1.0 05/30/2017 [facility] URINE AND STOOL UA Color Ltyellow 05/30/2017 [facility] URINE AND STOOL UA Nitrite Negative (05/30/17 6:42 PM) Negative 05/30/2017 [facility] URINE AND STOOL UA Ketones Negative mg/dL Negative mg/dL 05/30/2017 [facility] URINE AND STOOL UA Blood Negative (05/30/17 6:42 PM) Negative 05/30/2017 [facility] URINE AND STOOL UA WBC null 0 - 5 05/30/2017 [facility] URINE AND STOOL UA Bacteria Occasional /HPF None Seen /HPF 05/30/2017 [facility] URINE AND STOOL UA Sq Epi Occasional /LPF Few /LPF 05/30/2017 [facility] URINE AND STOOL UA RBC 1 /HPF 0 - 2 05/30/2017 [facility] URINE AND STOOL UA Leuk Est Negative (05/30/17 6:42 PM) Negative 05/30/2017 [facility] URINE AND STOOL UA Bili Negative *NA* (05/30/17 6:42 PM) Negative 05/30/2017 [facility] URINE AND STOOL UA Spec Grav 1.005 <=1.030 05/30/2017 [facility] URINE AND STOOL UA Turbidity Clear (05/30/17 6:42 PM) Clear 05/30/2017 [facility] URINE AND STOOL UA Protein Negative mg/dL Negative mg/dL 05/30/2017 [facility] URINE AND STOOL UA Glucose Negative mg/dL Negative mg/dL 05/30/2017 [facility] URINE AND STOOL UA pH 7.0 5.0 - 8.0 05/30/2017 [facility] Chest 2 views DX Chest 2 [...] noted. IMPRESSION: No acute cardiopulmonary abnormality. SL: [id number] 05/30/2017 - - Read by: Georges Awan MD Dictated Date/time: 05/30/17 20:17 Electronically Signed by: Georges Awan MD 05/30/17 20:18 FINAL REPORT [facility] URINE AND STOOL UA Sq Epi None Seen 02/01/2017 [facility] URINE AND STOOL UA RBC null 0 - 2 02/01/2017 [facility] URINE AND STOOL UA WBC null 0 - 5 02/01/2017 [facility] URINE AND STOOL UA Urobilinogen <=1.0 mg/dL [...] UA Ketones Negative mg/dL Negative mg/dL 02/01/2017 [facility] URINE AND STOOL UA Nitrite Negative (02/01/17 1:08 AM) Negative 02/01/2017 [facility] URINE AND STOOL UA Bili Negative *NA* (02/01/17 1:08 AM) Negative 02/01/2017 [facility] URINE AND STOOL UA Leuk Est Negative (02/01/17 1:08 AM) Negative 02/01/2017 [facility] URINE AND STOOL UA Blood Negative (02/01/17 1:08 AM) Negative 02/01/2017 [facility] URINE AND STOOL UA Turbidity Clear (02/01/17 1:08 AM) Clear 02/01/2017 [facility] CARDIAC ENZYMES Total CK 77 unit/L 12 - 191 02/01/2017 [facility] CARDIAC ENZYMES CK MB 0.7 ng/mL 0.5 - 3.6 02/01/2017 [facility] CARDIAC ENZYMES Troponin-I null 0.00 - 0.40 02/01/2017 [facility] CARDIAC ENZYMES BNP 59 pg/mL <=100 pg/mL 02/01/2017 [facility] CARDIAC ENZYMES CK MB Index 0.9 0.0 - 2.5 02/01/2017 [facility] CHEM PANEL Lipase Lvl 155 unit/L 73 - 393 02/01/2017 [facility] CHEM PANEL eGFR 89 mL/min/1.73m2 02/01/2017 [...] CO2 26 meq/L 24 - 32 02/01/2017 [facility] CHEM PANEL Chloride Lvl 109 meq/L 95 - 109 02/01/2017 [facility] CHEM PANEL Potassium Lvl 3.9 meq/L 3.5 - 5.1 02/01/2017 [facility] CHEM PANEL Sodium Lvl 142 meq/L 135 - 145 02/01/2017 [facility] CHEM PANEL BUN 10 mg/dL 7 - 22 02/01/2017 [facility] CHEM PANEL Creatinine Lvl 0.74 mg/dL 0.50 - 1.40 02/01/2017 [facility] CHEM PANEL Alk Phos 67 unit/L 39 - 136 02/01/2017 [facility] CHEM PANEL Bili Total 0.3 mg/dL 0.2 - 1.3 02/01/2017 [facility] CHEM PANEL ALT 32 unit/L 0 - 65 02/01/2017 [facility] CHEM PANEL AST 25 unit/L 0 - 37 02/01/2017 [facility] CHEM PANEL Calcium Lvl 8.9 mg/dL 8.5 - 10.5 02/01/2017 [facility] CHEM PANEL Albumin Lvl 3.1 g/dL 3.5 - 5.0 02/01/2017 [facility] CHEM PANEL Total Protein 7.1 g/dL 6.4 - 8.4 02/01/2017 [facility] CHEM PANEL Globulin 4.0 g/dL 2.7 - 4.2 02/01/2017 [facility] CHEM PANEL A/G Ratio 0.8 0.7 - 1.6 02/01/2017 [facility] CHEM PANEL AGAP 10.9 meq/L 10.0 - 20.0 02/01/2017 [facility] CHEM PANEL B/C Ratio 14 6 - 25 02/01/2017 [facility] CHEM PANEL Glucose Lvl 101 mg/dL 70 - 99 02/01/2017 [facility] HEMATOLOGY MCV 88.2 fL 80.0 - 98.0 02/01/2017 [facility] RBC 4.37 M/CMM 4.20 - 5.40 02/01/2017 [facility] Hct 38.6 % 36.0 - 48.0 02/01/2017 [facility] Hgb 13.1 g/dL 12.0 - 16.0 02/01/2017 [facility] MCH 30.0 pg 27.0 - 31.0 02/01/2017 [facility] RDW 14.4 % 11.5 - 14.5 02/01/2017 [facility] MCHC 34.0 g/dL 32.0 - 36.0 02/01/2017 [facility] MPV 8.7 fL 7.4 - 10.4 02/01/2017 [facility] Platelet 243 K/CMM 133 - 450 02/01/2017 [facility] WBC 5.1 K/CMM 3.7 - 10.4 02/01/2017 [facility] Segs 50.7 % 45.0 - 75.0 02/01/2017 [facility] Monocytes 7.9 % 2.0 - 12.0 02/01/2017 [facility] Lymphocytes # 1.8 K/CMM 1.0 - 5.5 02/01/2017 [facility] Lymphocytes 36.2 % 20.0 - 40.0 02/01/2017 [facility] Segs-Bands # 2.6 K/CMM 1.5 - 8.1 02/01/2017 [facility] Basophils 0.8 % 0.0 - 1.0 02/01/2017 [facility] Eosinophils 4.4 % 0.0 - 4.0 02/01/2017 [facility] Monocytes # 0.4 K/CMM 0.0 - 0.8 02/01/2017 [facility] Eosinophils # 0.2 K/CMM 0.0 - 0.5 02/01/2017 [facility] Chest 1view DX Chest 1view DX [...] Read by: Jose Alvarenga MD Dictated Date/time: 02/01/17 01:06 Electronically Signed by: Jose Alvarenga MD 02/01/17 01:07 FINAL REPORT [facility] CARDIAC ENZYMES CK MB Index null 0.0 - 2.5 11/29/2016 [facility] CARDIAC ENZYMES Total CK 43 unit/L 12 - 191 11/29/2016 [facility] CARDIAC ENZYMES CK MB null 0.5 - 3.6 11/29/2016 [facility] CARDIAC ENZYMES Troponin-I null 0.00 - 0.40 11/29/2016 [facility] CHEM PANEL Lipase Lvl 107 unit/L 73 - 393 11/29/2016 [facility] CHEM PANEL Globulin 4.4 g/dL 2.7 - 4.2 11/29/2016 [facility] CHEM PANEL B/C Ratio 12 6 - 25 11/29/2016 [facility] CHEM PANEL A/G Ratio 0.7 0.7 - 1.6 11/29/2016 [facility] CHEM PANEL eGFR 70 mL/min/1.73m2 11/29/2016 [...] should be multiplied by the estimated BMI. [facility] CHEM PANEL CO2 28 meq/L 24 - 32 11/29/2016 [facility] CHEM PANEL Chloride Lvl 106 meq/L 95 - 109 11/29/2016 [facility] CHEM PANEL Total Protein 7.4 g/dL 6.4 - 8.4 11/29/2016 [facility] CHEM PANEL Calcium Lvl 9.1 mg/dL 8.5 - 10.5 11/29/2016 [facility] CHEM PANEL Albumin Lvl 3.0 g/dL 3.5 - 5.0 11/29/2016 [facility] CHEM PANEL ALT 31 unit/L 0 - 65 11/29/2016 [facility] CHEM PANEL Alk Phos 113 unit/L 39 - 136 11/29/2016 [facility] CHEM PANEL AST 23 unit/L 0 - 37 11/29/2016 [facility] CHEM PANEL Bili Total 0.6 mg/dL 0.2 - 1.3 11/29/2016 [facility] CHEM PANEL AGAP 9.6 meq/L 10.0 - 20.0 11/29/2016 [facility] CHEM PANEL Glucose Lvl 88 mg/dL 70 - 99 11/29/2016 [facility] CHEM PANEL BUN 11 mg/dL 7 - 22 11/29/2016 [facility] CHEM PANEL Potassium Lvl 3.6 meq/L 3.5 - 5.1 11/29/2016 [facility] CHEM PANEL Sodium Lvl 140 meq/L 135 - 145 11/29/2016 [facility] CHEM PANEL Creatinine Lvl 0.91 mg/dL 0.50 - 1.40 11/29/2016 [facility] HEMATOLOGY Segs 49.3 % 45.0 - 75.0 11/29/2016 [facility] HEMATOLOGY Monocytes 10.9 % 2.0 - 12.0 11/29/2016 [facility] HEMATOLOGY Lymphocytes 24.8 % 20.0 - 40.0 11/29/2016 [facility] HEMATOLOGY Eosinophils # 1.0 K/CMM 0.0 - 0.5 11/29/2016 [facility] HEMATOLOGY Basophils 0.6 % 0.0 - 1.0 11/29/2016 [facility] HEMATOLOGY Monocytes # 0.8 K/CMM 0.0 - 0.8 11/29/2016 [facility] HEMATOLOGY Segs-Bands # 3.5 K/CMM 1.5 - 8.1 11/29/2016 [facility] HEMATOLOGY Eosinophils 14.4 % 0.0 - 4.0 11/29/2016 [facility] HEMATOLOGY Lymphocytes # 1.7 K/CMM 1.0 - 5.5 11/29/2016 [facility] HEMATOLOGY Platelet 329 K/CMM 133 - 450 11/29/2016 [facility] HEMATOLOGY MPV 7.4 fL 7.4 - 10.4 11/29/2016 [facility] HEMATOLOGY MCH 30.9 pg 27.0 - 31.0 11/29/2016 [facility] HEMATOLOGY MCV 89.9 fL 80.0 - 98.0 11/29/2016 [facility] HEMATOLOGY RDW 14.4 % 11.5 - 14.5 11/29/2016 [facility] HEMATOLOGY MCHC 34.4 g/dL 32.0 - 36.0 11/29/2016 [facility] HEMATOLOGY Hct 35.6 % 36.0 - 48.0 11/29/2016 [facility] HEMATOLOGY Hgb 12.3 g/dL 12.0 - 16.0 11/29/2016 [facility] HEMATOLOGY RBC 3.96 M/CMM 4.20 - 5.40 11/29/2016 [facility] HEMATOLOGY WBC 7.0 K/CMM 3.7 - 10.4 11/29/2016 [facility] CARDIAC ENZYMES CK MB Index null 0.0 - 2.5 11/27/2016 [facility] CARDIAC ENZYMES Total CK 48 unit/L 12 - 191 11/27/2016 [facility] CARDIAC ENZYMES CK MB null 0.5 - 3.6 11/27/2016 [facility] CARDIAC ENZYMES Troponin-I null 0.00 - 0.40 11/27/2016 [facility] CHEM PANEL B/C Ratio 14 6 - 25 11/27/2016 [facility] CHEM PANEL A/G Ratio 0.3 0.7 - 1.6 11/27/2016 [facility] CHEM PANEL Globulin 5.6 g/dL 2.7 - 4.2 11/27/2016 [facility] CHEM PANEL Albumin Lvl 1.5 g/dL 3.5 - 5.0 11/27/2016 [facility] CHEM PANEL Total Protein 7.1 g/dL 6.4 - 8.4 11/27/2016 [facility] CHEM PANEL AGAP 11.9 meq/L 10.0 - 20.0 11/27/2016 [facility] CHEM PANEL Bili Total 0.3 mg/dL 0.2 - 1.3 11/27/2016 [facility] CHEM PANEL Alk Phos 110 unit/L 39 - 136 11/27/2016 [facility] CHEM PANEL AST 25 unit/L 0 - 37 11/27/2016 [facility] CHEM PANEL ALT 33 unit/L 0 - 65 11/27/2016 [facility] CHEM PANEL eGFR 70 mL/min/1.73m2 11/27/2016 [...] by the estimated BMI. [facility] CHEM PANEL Creatinine Lvl 0.91 mg/dL 0.50 - 1.40 11/27/2016 [facility] CHEM PANEL BUN 13 mg/dL 7 - 22 11/27/2016 [facility] CHEM PANEL Glucose Lvl 87 mg/dL 70 - 99 11/27/2016 [facility] CHEM PANEL Sodium Lvl 141 meq/L 135 - 145 11/27/2016 [facility] CHEM PANEL CO2 26 meq/L 24 - 32 11/27/2016 [facility] CHEM PANEL Chloride Lvl 107 meq/L 95 - 109 11/27/2016 [facility] CHEM PANEL Potassium Lvl 3.9 meq/L 3.5 - 5.1 11/27/2016 [facility] CHEM PANEL Calcium Lvl 8.9 mg/dL 8.5 - 10.5 11/27/2016 [facility] CHEM PANEL Magnesium Lvl 2.1 mg/dL 1.8 - 2.4 11/27/2016 [facility] CHEM PANEL Phosphorus 3.7 mg/dL 2.5 - 4.5 11/27/2016 [facility] HEMATOLOGY Eosinophils # 1.0 K/CMM 0.0 - 0.5 11/27/2016 [facility] HEMATOLOGY Basophils # 0.1 K/CMM 0.0 - 0.2 11/27/2016 [facility] HEMATOLOGY Monocytes # 0.8 K/CMM 0.0 - 0.8 11/27/2016 [facility] HEMATOLOGY Lymphocytes # 1.8 K/CMM 1.0 - 5.5 11/27/2016 [facility] HEMATOLOGY Basophils 1.2 % 0.0 - 1.0 11/27/2016 [facility] HEMATOLOGY Segs-Bands # 3.3 K/CMM 1.5 - 8.1 11/27/2016 [facility] HEMATOLOGY Lymphocytes 25.8 % 20.0 - 40.0 11/27/2016 [facility] HEMATOLOGY Segs 47.1 % 45.0 - 75.0 11/27/2016 [facility] HEMATOLOGY Monocytes 11.7 % 2.0 - 12.0 11/27/2016 [facility] HEMATOLOGY Eosinophils 14.2 % 0.0 - 4.0 11/27/2016 [facility] Platelet 323 K/CMM 133 - 450 11/27/2016 [facility] MPV 7.4 fL 7.4 - 10.4 11/27/2016 [facility] RDW 14.1 % 11.5 - 14.5 11/27/2016 [facility] MCH 31.1 pg 27.0 - 31.0 11/27/2016 [facility] MCHC 34.5 g/dL 32.0 - 36.0 11/27/2016 [facility] MCV 90.1 fL 80.0 - 98.0 11/27/2016 [facility] Hgb 11.9 g/dL 12.0 - 16.0 11/27/2016 [facility] RBC 3.82 M/CMM 4.20 - 5.40 11/27/2016 [facility] Hct 34.4 % 36.0 - 48.0 11/27/2016 [facility] WBC 7.0 K/CMM 3.7 - 10.4 11/27/2016 [facility] Chest 1view DX Chest 1view DX [...] Jose Alvarenga MD 11/27/16 02:11 FINAL REPORT [facility] Vital Signs Vital Sign Value Date [...] Group Temperature Oral (F) 98 F 05/31/2017 [facility] Systolic (mm Hg) 116 05/31/2017 [facility] Diastolic (mm Hg) 61 05/31/2017 [facility] Respitory Rate 16 05/31/2017 [facility] Heart Rate 51 05/31/2017 [facility] Systolic (mm Hg) 117 05/30/2017 [facility] Diastolic (mm Hg) 71 05/30/2017 [facility] Heart Rate 58 05/30/2017 [facility] Respitory Rate 18 05/30/2017 [facility] Weight 70 05/30/2017 [facility] BMI Calculated 29.16 05/30/2017 [facility] Temperature Oral (F) 98.8 F 05/30/2017 [facility] Height 154.94 cm 05/30/2017 [facility] BMI Calculated 29.43 05/03/2017 [facility] Weight 70.653 05/03/2017 [facility] Respitory Rate 16 05/03/2017 [facility] Heart Rate 54 05/03/2017 [facility] Systolic (mm Hg) 107 05/03/2017 [facility] Diastolic (mm Hg) 69 05/03/2017 [facility] Height 154.94 cm 05/03/2017 [facility] Temperature Oral (F) 98.0 F 05/03/2017 [facility] Weight 70.909 04/18/2017 [facility] BMI Calculated 29.54 04/18/2017 [facility] Height 154.94 cm 04/18/2017 [facility] BMI Calculated 29.54 04/18/2017 [facility] Height 154.94 cm 04/18/2017 [facility] Weight 70.909 04/18/2017 [facility] BMI Calculated 28.54 04/08/2017 [facility] Weight 70.71 04/08/2017 [facility] Height 157.4 cm 04/08/2017 [facility] Temperature Oral (F) 98.3 F 04/08/2017 [facility] Respitory Rate 16 04/08/2017 [facility] Heart Rate 56 04/08/2017 [facility] Systolic (mm Hg) 103 04/08/2017 [facility] Diastolic (mm Hg) 69 04/08/2017 [facility] Weight 70.938 03/04/2017 [facility] BMI Calculated 28.6 03/04/2017 [facility] Height 157.48 cm 03/04/2017 [facility] Respitory Rate 16 03/04/2017 [facility] Temperature Oral (F) 98.1 F 03/04/2017 [facility] Heart Rate 64 03/04/2017 [facility] Systolic (mm Hg) 130 03/04/2017 [facility] Diastolic (mm Hg) 76 03/04/2017 [facility] Temperature Oral (F) 98.3 F 02/01/2017 [facility] Heart Rate 78 02/01/2017 [facility] Respitory Rate 16 02/01/2017 [facility] Systolic (mm Hg) 125 02/01/2017 [facility] Diastolic (mm Hg) 76 02/01/2017 [facility] Systolic (mm Hg) 129 02/01/2017 [facility] Diastolic (mm Hg) 74 02/01/2017 [facility] Heart Rate 63 02/01/2017 [facility] BMI Calculated 29.54 02/01/2017 [facility] Weight 70.909 02/01/2017 [facility] Height 154.94 cm 02/01/2017 [facility] Respitory Rate 18 02/01/2017 [facility] Respitory Rate 18 11/29/2016 [facility] Heart Rate 64 11/29/2016 [facility] Temperature Oral (F) 97.9 F 11/29/2016 [facility] Systolic (mm Hg) 128 11/29/2016 [facility] Diastolic (mm Hg) 79 11/29/2016 [facility] Height 154.94 cm 11/29/2016 [facility] Systolic (mm Hg) 132 11/29/2016 [facility] Diastolic (mm Hg) 78 11/29/2016 [facility] Respitory Rate 16 11/29/2016 [facility] Heart Rate 65 11/29/2016 [facility] Temperature Oral (F) 97.8 F 11/29/2016 [facility] BMI Calculated 29.92 11/29/2016 [facility] Weight 71.818 11/29/2016 [facility] Temperature Oral (F) 98.1 F 11/27/2016 [facility] Systolic (mm Hg) 117 11/27/2016 [facility] Diastolic (mm Hg) 75 11/27/2016 [facility] Respitory Rate 19 11/27/2016 [facility] Heart Rate 58 11/27/2016 [facility] Respitory Rate 19 11/27/2016 [facility] Heart Rate 59 11/27/2016 [facility] Temperature Oral (F) 98.5 F 11/27/2016 [facility] Systolic (mm Hg) 128 11/27/2016 [facility] Diastolic (mm Hg) 65 11/27/2016 [facility] Heart Rate 62 11/27/2016 [facility] Systolic (mm Hg) 140 11/27/2016 [facility] Diastolic (mm Hg) 70 11/27/2016 [facility] Respitory Rate 18 11/27/2016 [facility] Temperature Oral (F) 98.5 F 11/27/2016 [facility] Weight 72.727 11/27/2016 [facility] Height 154.94 cm 11/27/2016 [facility] BMI Calculated 30.29 11/27/2016 [facility] Encounters Location Location Details Encounter Type Encounter Number Reason For Visit Attending Provider ADM Date DC Date Status Source [facility] Emergency [id number] Ta Rosegustavo 11/27/2016 11/27/2016 [facility] Emergency [id number] Linda Eagle 11/29/2016 11/29/2016 [facility] Emergency [id number] Cat Soto 02/01/2017 02/01/2017 [facility] Outpatient [id number] Tyler Juarez 03/04/2017 03/05/2017 [facility] Outpatient [id number] Tyler Juarez 04/08/2017 04/09/2017 [facility] Outpatient [id number] Tyler Juarez 04/18/2017 04/19/2017 [facility] Outpatient [id number] Tyler Juarez 05/03/2017 05/04/2017 [facility] Emergency [id number] Kenneth Kovacs 05/30/2017 05/31/2017 [facility] Outpatient [id number] ESTELA SETH 07/22/2017 [facility] [place] Outpatient [id number] 07/23/2017 07/23/2017 [facility] Procedure Code Date Perfomer Comments Source Cholecystectomy [id number] [facility] Sphincterotomy of bile duct and pancreatic duct using duodenal approach [id number] [facility] Tonsillectomy [id number] [facility] Cholecystectomy [id number] [facility] Sphincterotomy of bile duct and pancreatic duct using duodenal approach [id number] [facility] Tonsillectomy [id number] [facility] Cholecystectomy [id number] [facility] Sphincterotomy of bile duct and pancreatic duct using duodenal approach [id number] [facility] Tonsillectomy [id number] [facility]
[2018-03-21 13:14] LABS: BASOPHILS % 0.7 % (0.0-1.0); EOSINOPHILS # (AUTO) 0.1 (0.0-0.4); EOSINOPHILS % 1.7 % (0.0-6.0); HEMATOCRIT 40.6 % (34.2-44.1); HEMOGLOBIN 13.9 g/dL (12.0-16.0); LYMPHOCYTES # (AUTO) 1.4 (1.0-3.2); MEAN CORPUSCULAR HEMOGLOBIN 30.3 pg (28-32); MEAN CORPUSCULAR HGB CONC 34.2 g/dL (31-35); MEAN CORPUSCULAR VOLUME 88.6 fL (81-99); MONOCYTES # (AUTO) 0.4 (0.2-0.8); MONOCYTES % 7.5 % (4.4-11.3); NEUTROPHILS # (AUTO) 3.5 (2.1-6.9); NEUTROPHILS % 64.9 % (38.7-80.0); PLATELET COUNT 268 x10e3/uL (140-360); RED BLOOD COUNT 4.58 x10e6/uL (3.6-5.1); RED CELL DISTRIBUTION WIDTH 13.3 % (11.7-14.4)
[2018-03-21 13:29] LABS: BENZODIAZEPINES SCREEN,URINE POSITIVE (NEGATIVE); PHENCYCLIDINE SCREEN,URINE NEGATIVE (NEGATIVE)
[2018-03-21 13:30] LABS: ALANINE AMINOTRANSFERASE 31 IU/L (0-55); ALBUMIN 3.4 g/dL (3.5-5.0); ALKALINE PHOSPHATASE 58 IU/L (40-150); ANION GAP 12.5 mmol/L (8-16); BLOOD UREA NITROGEN 9 mg/dL (7-26); BUN/CREATININE RATIO 10 (6-25); CALCIUM 9.2 mg/dL (8.4-10.2); CARBON DIOXIDE 26 mmol/L (22-29); CHLORIDE 102 mmol/L (98-107); CREATINE KINASE 57 IU/L (29-168); CREATININE, SERUM 0.86 mg/dL (0.57-1.11); EST GLOMERULAR FILTRATION RATE > 60 ML/MIN (60-); GLUCOSE 120 mg/dL (74-118); POTASSIUM 3.5 mmol/L (3.5-5.1); SODIUM 137 mmol/L (136-145)
[2018-03-21 13:36] LABS: AMPHETAMINES SCREEN,URINE POSITIVE (NEGATIVE)
[2018-03-21 13:50] LABS: THYROID STIMULATING HORMONE 1.431 uIU/mL (0.350-4.940)
[2018-03-21 15:56] VITALS: BP 130/88
== END 2018-03-21 15:57 | disposition home or self-care (01) ==
LOC: ER 11:59
DX: R00.2 Palpitations (principal); R00.0 Tachycardia, unspecified; I10 Essential (primary) hypertension
CPT/HCPCS: 36415; 80053; 80307; 82550; 82553; 84443; 84484; 85025; 93005; 99283

== ENCOUNTER 2019-05-13 23:17 | Emergency (ER) | payer OTHER ==
[~2019-05-13] VITALS: Ht 157.5 cm; Wt 72.6 kg
--- OUTSIDE RECORDS SUMMARY | 2019-05-13 23:22 | XMS REPORT | Summary of Care ---
Author Author [facility] Organization [facility] Address Unknown Phone Unavailable Care Team Providers Care Professional Development Instructor Name Role Phone Medical, Luis [phone] Prakash Corrigan MD PCP Reason for Visit * Reason Comments Medical Concern Encounter Details Care Team Description Date Type Department Brodie Gerardo MD [address] [facility] [address], [place] [address] Medical Concern 05/04/2019 Office Visit [facility] Urology [address] [facility] [address] [facility], [place] [address] Allergies Comments Active Allergy Reactions Severity Noted Date Alinia 09/25/2015 Sulfamethoxazole 09/25/2015 W/Trimethoprim Fluocinolone 09/25/2015 Ciprofloxacin Hives High 04/07/2016 Cleocin 09/25/2015 Dicyclomine 09/25/2015 Doxycycline High 09/07/2017 Lamotrigine 11/04/2016 Norfloxacin 09/25/2015 Metoclopramide 06/08/2016 Tramadol 09/25/2015 Tramadol Hcl 09/25/2015 Hydrocodone-Acetaminophen 09/25/2015 documented as of this encounter (statuses as of 05/04/2019) Medications End Date Status Medication Sig Dispensed Refills Start Date Active lorazepam (ATIVAN) 0.5 MG Take 0.5 mg 0 tablet by mouth every 8 hours as needed for Anxiety. Active Cranberry (ELLURA) 200 MG Take 200 mg 0 CAPS by mouth daily. Active metoprolol (LOPRESSOR) 25 Take 1 Tab by 180 Tab 3 10/22/201 MG tablet mouth two 7 times daily. Active ranitidine (ZANTAC) 300 Take 1 Tab by 60 Tab 5 MG tabletIndications: mouth daily. 8 Routine check-up Additional Information Patient not taking. Reported on 05/04/2019 12:30 PM Active ondansetron (ZOFRAN) 4 MG Take 1 Tab by 60 Tab 1 tablet mouth every 6 8 hours as needed for Nausea. Active hyoscyamine (LEVSIN/SL) Place 1 Tab 60 Each 5 0.125 MG SL tablet under the 8 tongue every 6 hours as needed for Cramping. Active Tamsulosin HCl (FLOMAX) Take 0.8 mg 60 Cap 4 0.4 MG CAPSIndications: by mouth 8 Chronic interstitial daily. cystitis Active gabapentin (NEURONTIN) Take two cap 0 100 MG capsule at 4 or 5pm, 8 and then take two or three at bedtime Active nabumetone (RELAFEN) 500 Take 500 mg 0 MG tablet by mouth. Active hydrochlorothiazide 12.5 daily. 0 MG TABS 8 Active hydrOXYzine (ATARAX) 25 Take 1 Tab by 90 Tab 3 MG tabletIndications: mouth at 9 Chronic interstitial bedtime. cystitis Active phenazopyridine Take by mouth 30 Tab 3 (PYRIDIUM) 200 MG every 8 hours 9 tabletIndications: PRN. Urinary tract infection without hematuria, site unspecified, Chronic interstitial cystitis Additional Information Patient not taking. Reason: Discontinued by other provider, Reported on 08/02/2018 2:37 PM Active estradiol (ESTRACE Place 1 g 42.5 g 3 VAGINAL) 0.1 MG/GM vaginally 3 9 vaginal creamIndications: times weekly. Vaginal atrophy Active atorvastatin (LIPITOR) 10 Take 10 mg by 0 MG tablet mouth daily. Active amitriptyline (ELAVIL) 25 Take 25 mg by 0 MG tablet mouth nightly. Active pantoprazole (PROTONIX) TAKE 1 TABLET 60 Tab 11 40 MG tabletIndications: BY MOUTH 9 Gastroesophageal reflux TWICE DAILY disease with esophagitis Active VALTREX 500 MG tablet Take 500 mg 0 by mouth two times daily. 05/04/2019 Discontinued (*Therapy completed) omeprazole (PRILOSEC) 40 Take 40 mg by 0 MG capsule mouth. 05/04/2019 Discontinued (*Duplicate medication) Tamsulosin HCl 0.4 MG TAKE 2 180 Cap 0 CAPSIndications: CAPSULES BY 0 Incomplete bladder MOUTH AT emptying BEDTIME documented as of this encounter (statuses as of 05/04/2019) Active Problems Problem Noted Date Renal cyst 05/16/2016 RBBB (right bundle branch block) Pancreatitis Mitral valve prolapse GERD (gastroesophageal reflux disease) DORA (generalized anxiety disorder) Depression documented as of this encounter (statuses as of 05/04/2019) Social History Date Tobacco Use Types Packs/Day Years Used Never Smoker Smokeless Tobacco: Never Used Drinks/Week oz/Week Comments Alcohol Use No Sex Assigned at Date Recorded Not on file Industry Job Start Date Occupation Not on file Not on file Not on file Travel End Travel History Travel Start No recent travel history available. documented as of this encounter Last Filed Vital Signs Reading Time Taken Comments Vital Sign 136/80 05/04/2019 12:26 PM YARD ASSISTANT Blood Pressure 73 05/04/2019 12:26 PM YARD ASSISTANT Pulse 36.7 C (98 F) 05/04/2019 12:26 PM YARD ASSISTANT Temperature - - Respiratory Rate - - Oxygen Saturation - - Inhaled Oxygen Concentration 72.1 kg (159 lb) 05/04/2019 12:26 PM YARD ASSISTANT Weight - - Height 29.08 09/14/2018 2:30 PM CDT Body Mass Index documented in this encounter Progress Notes * Nichol Gutierres CMA - 05/04/2019 12:44 PM YARD ASSISTANT Review of Systems Constitutional: Positive for fatigue. HENT: Positive for postnasal drip and tinnitus. Eyes: Negative. Respiratory: Negative for apnea. Cardiovascular: Negative. Gastrointestinal: Positive for abdominal distention, constipation and excessive appetite. Endocrine: Positive for heat intolerance and polydipsia. Genitourinary: Positive for difficulty urinating and urgency. Musculoskeletal: Negative. Allergic/Immunologic: Positive for environmental allergies and food allergies. Neurological: Positive for facial asymmetry and headaches. Psychiatric/Behavioral: Positive for agitation and decreased concentration. ASSISTANT * Brodie Gerardo MD - 05/04/2019 12:30 PM YARD ASSISTANT Referring Physician Marcus Mcmullen MD [address] [address] Patient Name: Fady Morocho :1960 [facility] ID#:[id number] Ms. Morocho is a 59 y.o. year old female who present to me for followup of IC/OA B on hydroxyzine 25mg po qhs and tamsulosin 0.8mg po qhs. Pt hospitalized in [facility] with drug reaction to lamictal. Pt stopped hydroxyzine during hospitali zation and over the past week has noted bladder flare associated with frequency/ urgency and suprapubic ache. Pt followed by Dr. Raymond for left renal cysts. Pt here for followup. Pt on hydroxyzine and tamsulosin 0.8mg po qhs. Pt also on elavil. Pt has noted more difficulty voiding and needing to push to urinate for past 2 wks. Pt recently started drinking diet 7-up. Also more urgency/freque ncy, no dysuria. Pt here for followup. Urinalysis and urine culture negative. On tamsulosin/hyd roxyzine and given IC diet info and Rx pyridium on last visit. Pt feeling ishmael r although did have to cath twice a couple of weeks ago with one residual 150ml. Past Medical History: Diagnosis Date Chronic interstitial cystitis Depression DORA (generalized anxiety disorder) GERD (gastroesophageal reflux disease) IBS (irritable bowel syndrome) Mitral valve prolapse Pancreatitis post ERCP PAT (paroxysmal atrial tachycardia) (HCCode) RBBB (right bundle branch block) Sleep apnea Past Surgical History: Procedure Laterality Date HX CARDIAC CATHERIZATION 2014 HX COLONOSCOPY 03/2014 dr hester-to cecum; no colitis; int hemorrhoid; one "polyp"-bx--lymph aggregate HX ERCP 2005 pt reports sphincterotomy HX GALLBLADDER SURGERY 1992 dysfunction; no reported stones HX TONSILLECTOMY HX UPPER GASTROINTESTINAL ENDOSCOPY 2005;2008;2010;2014 2014-dr hester-distal esoph erythema;antral erythema;no ulcers;jy-[id number];gas tric-erosive gastritis; no HP; no esoph bx Medications Outpatient Medications Prior to Visit Medication Sig Dispense Refill amitriptyline Take 25 mg by mouth nightly. atorvastatin Take 10 mg by mouth daily. Cranberry Take 200 mg by mouth daily. estradiol Place 1 g vaginally 3 times weekly. 42.5 g 3 gabapentin Take two cap at 4 or 5pm, and then take two or three at bedtime hydrochlorothiazide daily. hydrOXYzine Take 1 Tab by mouth at bedtime. [address] 1 Tab under the tongue every 6 hours as needed for Crampin g. 60 Each 5 lorazepam Take 0.5 mg by mouth every 8 hours as needed for Anxiety. metoprolol Take 1 Tab by mouth two times daily. 180 Tab 3 nabumetone Take 500 mg by mouth. omeprazole Take 40 mg by mouth. ondansetron Take 1 Tab by mouth every 6 hours as needed for Nausea. 60 Tab 1 pantoprazole TAKE 1 TABLET BY MOUTH TWICE DAILY 60 Tab 11 phenazopyridine Take by mouth every 8 hours PRN. (Patient not taking: Report ed on 08/02/2018) 30 Tab 3 ranitidine Take 1 Tab by mouth daily. 60 Tab 5 Tamsulosin HCl Take 0.8 mg by mouth daily. 60 Cap 4 Tamsulosin HCl TAKE 2 CAPSULES BY MOUTH AT BEDTIME 180 Cap 0 VALTREX Take 500 mg by mouth two times daily. No facility-administered medications prior to visit. Current Outpatient Medications: amitriptyline (ELAVIL) 25 MG tablet, Take 25 mg by mouth nightly., Disp: , Rfl: atorvastatin (LIPITOR) 10 MG tablet, Take 10 mg by mouth daily., Disp: , Rf l: Cranberry (ELLURA) 200 MG CAPS, Take 200 mg by mouth daily., Disp: , Rfl: estradiol (ESTRACE VAGINAL) 0.1 MG/GM vaginal cream, Place 1 g vaginally 3 times weekly., Disp: 42.5 g, Rfl: 3 gabapentin (NEURONTIN) 100 MG capsule, Take two cap at 4 or 5pm, and then take two or three at bedtime, Disp: , Rfl: hydrochlorothiazide 12.5 MG TABS, daily., Disp: , Rfl: hydrOXYzine (ATARAX) 25 MG tablet, Take 1 Tab by mouth at bedtime., Disp: 9 0 Tab, Rfl: 3 hyoscyamine (LEVSIN/SL) 0.125 MG SL tablet, Place 1 Tab under the tongue ev owen 6 hours as needed for Cramping., Disp: 60 Each, Rfl: 5 lorazepam (ATIVAN) 0.5 MG tablet, Take 0.5 mg by mouth every 8 hours as nee ded for Anxiety., Disp: , Rfl: metoprolol (LOPRESSOR) 25 MG tablet, Take 1 Tab by mouth two times daily., Disp: 180 Tab, Rfl: 3 nabumetone (RELAFEN) 500 MG tablet, Take 500 mg by mouth., Disp: , Rfl: omeprazole (PRILOSEC) 40 MG capsule, Take 40 mg by mouth., Disp: , Rfl: ondansetron (ZOFRAN) 4 MG tablet, Take 1 Tab by mouth every 6 hours as need ed for Nausea., Disp: 60 Tab, Rfl: 1 pantoprazole (PROTONIX) 40 MG tablet, TAKE 1 TABLET BY MOUTH TWICE DAILY, D isp: 60 Tab, Rfl: 11 phenazopyridine (PYRIDIUM) 200 MG tablet, Take by mouth every 8 hours PRN. (Patient not taking: Reported on 08/02/2018), Disp: 30 Tab, Rfl: 3 ranitidine (ZANTAC) 300 MG tablet, Take 1 Tab by mouth daily., Disp: 60 Tab , Rfl: 5 Tamsulosin HCl (FLOMAX) 0.4 MG CAPS, Take 0.8 mg by mouth daily., Disp: 60 Cap, Rfl: 4 Tamsulosin HCl 0.4 MG CAPS, TAKE 2 CAPSULES BY MOUTH AT BEDTIME, Disp: 180 Cap, Rfl: 0 VALTREX 500 MG tablet, Take 500 mg by mouth two times daily., Disp: , Rfl: Social History Socioeconomic History Marital status: Single Spouse name: Not on file Number of children: Not on file Years of education: Not on file Highest education level: Not on file Occupational History Not on file Social Needs Financial resource strain: Not on file Food insecurity: Worry: Not on file Inability: Not on file Transportation needs: Medical: Not on file Non-medical: Not on file Tobacco Use Smoking status: Never Smoker Smokeless tobacco: Never Used Substance and Sexual Activity Alcohol use: No Drug use: No Sexual activity: Not on file Lifestyle Physical activity: Days per week: Not on file Minutes per session: Not on file Stress: Not on file Relationships Social connections: Talks on phone: Not on file Gets together: Not on file Attends taoist service: Not on file Active member of club or organization: Not on file Attends meetings of clubs or organizations: Not on file Relationship status: Not on file Intimate partner violence: Fear of current or ex partner: Not on file Emotionally abused: Not on file Physically abused: Not on file Forced sexual activity: Not on file Other Topics Concerns: Not on file Social History Narrative Not on file family history includes Atrial Fibrillation in her maternal aunt and mother; Marta ast Cancer in her mother; Cancer in her maternal aunt, maternal grandmother, pat ernal aunt, and paternal grandfather; Coronary Artery Disease in her maternal gr andfather; Mitral Valve Prolapse in her mother; Prostate Cancer in her father; p olycistic kidney disease in her father; renal cancer in her father. Allergies Allergen Reactions Ciprofloxacin Hives Doxycycline Alinia Bactrim [Sulfamethoxazole W/Trimethoprim] Ciprocinonide [Fluocinolone] Cleocin Dicyclomine Lamictal [Lamotrigine] Noroxin [Norfloxacin] Reglan [Metoclopramide] Tramadol Ultram [Tramadol Hcl] Vicodin [Hydrocodone-Acetaminophen] Review of Systems: Constitutional: Positive for fatigue. HENT: Positive for postnasal drip and tinnitus. Eyes: Negative. Respiratory: Negative for apnea. Cardiovascular: Negative. Gastrointestinal: Positive for abdominal distention, constipation and excessive appetite. Endocrine: Positive for heat intolerance and polydipsia. Genitourinary: Positive for difficulty urinating and urgency. Musculoskeletal: Negative. Allergic/Immunologic: Positive for environmental allergies and food allergies. Neurological: Positive for facial asymmetry and headaches. Psychiatric/Behavioral: Positive for agitation and decreased concentration. Physical Exam: Vitals: see in note above GENERAL: Well developed, well nourished, in no acute distress HEAD: Normocephalic and atraumatic CHEST Regular respiratory rate NEURO: SMITH well. Patient alert and oriented x3. PSYCH: Alert and cooperative; normal mood and affect; normal attention span and con centration Most Recent Labs: Results for orders placed or performed in visit on 10/19/18 (from the past 4032 hour(s)) CBC W/AUTO DIFF WITH PLATELETS Collection Time: 11/17/18 4:56 PM Result Value Ref Range WHITE BLOOD CELL COUNT 6.3 3.8 - 10.8 Thousand/uL RED BLOOD CELL COUNT 4.27 3.80 - 5.10 Million/uL HEMOGLOBIN 12.9 11.7 - 15.5 g/dL HEMATOCRIT 38.3 35.0 - 45.0 % MEAN CORPUSCULAR VOLUME 89.7 80.0 - 100.0 fL MEAN CORPUSCULAR HEMOGLOBIN 30.2 27.0 - 33.0 pg MEAN CORPUSCULAR HEMOGLOBIN CONC 33.7 32.0 - 36.0 g/dL RED CELL DISTRIBUTION WIDTH 12.8 11.0 - 15.0 % PLATELET COUNT 297 140 - 400 Thousand/uL MEAN PLATELET VOLUME 11.0 7.5 - 12.5 fL NEUTROPHILS ABSOLUTE COUNT 3,667 1,500 - 7,800 cells/uL LYMPHOCYTES ABSOLUTE COUNT 1,978 850 - 3,900 cells/uL MONOCYTES ABSOLUTE COUNT 485 200 - 950 cells/uL EOSINOPHILS ABSOLUTE COUNT 132 15 - 500 cells/uL BASOPHILS ABSOLUTE COUNT 38 0 - 200 cells/uL NEUTROPHILS % 58.2 % LYMPHOCYTES % 31.4 % MONOCYTES % 7.7 % EOSINOPHILS % 2.1 % BASOPHILS % 0.6 % Urinalysis: Trace heme PVR: 48 ml Most Recent Imaging: No images are attached to the encounter. Assessment 1. IC flare Plan: 1. Continue tamsulosin 0.8mg po qhs and hydroxyzine 25mg po qhs 2. Catheter samples given to use prn 3. RTC 6 months with pvr ASSISTANT documented in this encounter Plan of Treatment Health Maintenance Due Date Last Done Comments COLON CANCER SCREENIN1959 COLONOSCOPY MAMMOGRAM ANNUAL 1960 TETANUS SHOT (ADULT) 1974 BMI FOLLOW UP PLAN 1977 HEPATITIS C SCREENING 1977 HIV SCREENING 1977 CERVICAL CANCER SCREENING 01/28/1980 3 YEAR FOLLOW UP FLU VACCINE > 6 MONTHS 09/28/2018 documented as of this encounter Procedures Comments Procedure Name Priority Date/Time Associated Diagnosis DARIA,POST-VOID Routine 05/04/2019 Incomplete bladder RES,US,NON-IMG emptying Urinary tract infection without hematuria, site unspecified POCT URINALYSIS DIPSTICK Routine 05/04/2019 Incomplete bladder emptying Urinary tract infection without hematuria, site unspecified documented in this encounter Results * DARIA,POST-VOID RES,US,NON-IMG (05/04/2019) PVR 48 cc/ml * POCT URINALYSIS DIPSTICK (05/04/2019) COLOR UA Yellow YELLOW/STRAW CLARITY UA Clear CLEAR GLUCOSE UA Negative NEGATIVE BILIRUBIN UA Negative NEGATIVE KETONES UA Negative NEGATIVE SPECIFIC 1.010 1.005 - 1.035 GRAVITY UA BLOOD UA Small 1+ NEGATIVE PH UA 5.0 5 - 9 PROTEIN UA Negative NEGATIVE UROBILINOGEN UA 0.02 E.U/DL NORMAL MG/DL LEUKOCYTE Negative NEGATIVE ESTERASE UA NITRITE UA Negative NEGATIVE REDUCING SUBSTANCES URINE Specimen documented in this encounter Visit Diagnoses Diagnosis Incomplete bladder emptying - Primary Urinary tract infection without hematuria, site unspecified documented in this encounter Insurance Type Payer Benefit Subscriber ID Effective Phone Address Plan / Dates Group [facility] [employer] [facility] x[facility]-P [address] [place] [place] [id number] [place] [address] documented as of this encounter
[2019-05-13] MEDS ORDERED: ACETAMINOPHEN 325 MG TAB PO ONE (23:30)
[2019-05-13 23:43] LABS: INFLUENZAE A&B ANTIGEN (RAPID) NEGATIVE (NEGATIVE); STREPTOCOCCUS GRP A ANTIGEN NEGATIVE (NEGATIVE)
[2019-05-14 01:29] VITALS: BP 137/71
--- NOTE | 2019-05-14 01:51 | Diagnostic Imaging Report ---
EXAMINATION: CHEST 2 VIEWS INDICATION: Cough. COMPARISON: Chest radiograph 09/09/2008. FINDINGS: TUBES and LINES: None. LUNGS: Lungs are well inflated. Linear subsegmental atelectasis in the left lower lung. There is no evidence of pneumonia or pulmonary edema. PLEURA: No pleural effusion or pneumothorax. HEART AND MEDIASTINUM: The cardiomediastinal silhouette is unremarkable. There are atherosclerotic calcifications within the aorta. BONES AND SOFT TISSUES: No acute osseous lesion. Soft tissues are unremarkable. UPPER ABDOMEN: No free air under the diaphragm. IMPRESSION: No acute thoracic abnormality. Signed by: Dr. Florencia Richard MD on 05/14/2019 1:49 AM
== END 2019-05-14 01:28 | disposition home or self-care (01) ==
LOC: ER 23:17
DX: R05 Cough (principal); J20.9 Acute bronchitis, unspecified; R51 Headache; I10 Essential (primary) hypertension; E78.5 Hyperlipidemia, unspecified; F41.9 Anxiety disorder, unspecified; I34.1 Nonrheumatic mitral (valve) prolapse
CPT/HCPCS: 71046; 83518; 87070; 87400; 99283

== ENCOUNTER → 2019-05-31 | Outpatient (CLI) | payer OTHER ==
[~2019-05-31] MED LIST changes: +DIATRIZOATE MEGL/DIATRIZOA SOD 30 ML BTL PO ONE; +IOPAMIDOL 370 MG/ML 200 ML INFUS..BTL INJ ONE; +SODIUM CHLORIDE 0.9% 50ML 50 ML ONE
[2019-05-31 08:54] LABS: BLOOD UREA NITROGEN 6 mg/dL (7-26); BUN/CREATININE RATIO 7 (6-25); CREATININE, SERUM 0.92 mg/dL (0.57-1.11); EST GLOMERULAR FILTRATION RATE > 60 ML/MIN (60-)
--- NOTE | 2019-05-31 10:12 | Diagnostic Imaging Report ---
CT of the abdomen and pelvis, with contrast. History: Right-sided abdominal pain. Comparison: CT abdomen/pelvis with contrast from 03/01/2018. Technique: Multidetector CT scanning of the abdomen and pelvis was performed from the level of the lung bases to the inferior pubic rami after intravenous and oral administration of contrast. Coronal and sagittal multiplanar reformations were obtained. RADIATION DOSE: Total DLP: 369.28 mGy*cm Dose modulation, iterative reconstruction, and/or weight based adjustment of the mA/kV was utilized to reduce the radiation dose to as low as reasonably achievable. FINDINGS: Minimal subsegmental atelectasis noted within the lung bases. The imaged portion of the heart is unremarkable. The liver is normal in size and attenuation without evidence for focal abnormality. The gallbladder surgically absent. There is no intra or extrahepatic biliary ductal dilatation. The stomach, spleen, pancreas, and bilateral adrenal glands are unremarkable. Incidentally noted is a splenule adjacent to the spleen. The kidneys are normal in size and location and enhance symmetrically. There are stable appearing bilateral renal cysts. The largest cyst on the right measures up to 4.0 cm on the right and 5.4 cm on the left. The largest cyst on the left contains a punctate calcification along its lateral wall, unchanged from the prior examination. Additionally, there is a 1.8 cm cyst identified within the superior pole of the left kidney which contains a thin septation, unchanged from the prior examination. There is no evidence for hydronephrosis. There is no evidence for ureteral dilatation or stone. Phleboliths are noted within the pelvis. The urinary bladder demonstrates no significant abnormalities. The uterus and adnexa are grossly unremarkable. The abdominal aorta is normal course and caliber. The IVC is unremarkable. The visualized loops of small and large bowel demonstrate no evidence of obstruction or inflammation. Moderate colonic stool burden noted. There is no ascites or intraperitoneal free air. No abnormally enlarged lymph nodes are identified within the abdomen or pelvis. There are stable mild compression deformities of the T11 and L1 vertebral bodies. The osseous structures otherwise demonstrate stable degenerative changes without evidence for acute fracture or destructive process. The extraperitoneal soft tissues are unremarkable. IMPRESSION: No acute abdominopelvic process identified. Stable bilateral renal cysts some of which are mildly complicated but unchanged from prior examinations as detailed above. Status post cholecystectomy. Signed by: Dr. Eleazar Epps MD on 05/31/2019 10:08 AM
== END ==
LOC: CT 07:35
PROVIDERS: ATTEND Internal Medicine Gastroenterology
DX: R10.9 Unspecified abdominal pain (principal)
CPT/HCPCS: 36415; 74177; 82565; 84520; Q9967

== ENCOUNTER → 2019-08-27 | Outpatient (CLI) | payer OTHER ==
[~2019-08-27] MED LIST changes: -DIATRIZOATE MEGL/DIATRIZOA SOD 30 ML BTL PO ONE; +GADOBENATE DIMEGLUMINE 1 ML IV ONE; -IOPAMIDOL 370 MG/ML 200 ML INFUS..BTL INJ ONE
[2019-08-27 09:36] LABS: BLOOD UREA NITROGEN 16 mg/dL (7-26); BUN/CREATININE RATIO 17 (6-25); CREATININE, SERUM 0.92 mg/dL (0.57-1.11); EST GLOMERULAR FILTRATION RATE > 60 ML/MIN (60-)
--- NOTE | 2019-08-27 11:30 | Diagnostic Imaging Report ---
MRCP (magnetic resonance cholangiopancreatography) without and with contrast HISTORY: Abdominal pain Comparison: CT abdomen and pelvis 05/31/2019 Technique: Multiplanar and multisequence MRI images of the abdomen were obtained without and subsequently following the administration of intravenous contrast. Three-dimensional reconstructed images of the biliary tree are also reviewed. FINDINGS: Common bile duct measures up to 8 mm in caliber, nonspecific in a cholecystectomy patient. No intrahepatic biliary dilation. No pancreatic ductal dilation. No intrinsic or extrinsic defect is identified within the biliary system. The gallbladder is absent. No mass is identified in the region of the ampulla or pancreatic head. Unremarkable appearance of the liver, pancreas, and spleen. Again seen are bilateral simple appearing renal cysts, unchanged in size. The visualized bowel loops appear normal in caliber. No free fluid or lymphadenopathy is seen within the abdomen. Impression: 1. No evidence of biliary obstruction. 2. Status post cholecystectomy. Signed by: Eber Brizuela MD on 08/27/2019 11:27 AM
== END ==
LOC: MRI 08:48
PROVIDERS: ATTEND Internal Medicine Gastroenterology
DX: R10.9 Unspecified abdominal pain (principal); N28.1 Cyst of kidney, acquired
CPT/HCPCS: 36415; 74183; 82565; 84520

== ENCOUNTER → 2020-01-31 | Day surgery (SDC) | payer OTHER ==
[~2020-01-31] MED LIST changes: +AZELASTINE205.5 MCG/; +CLARITIN-D 241 EACH PO; +ELAVIL PO; +FAMOTIDINE20 MG PO; +FENTANYL CITRATE/PF 100MCG/2 ML INJ ONE; -GADOBENATE DIMEGLUMINE 1 ML IV ONE; +HYOSCYAMINE 0.125 MG TAB ONE; +METOPROLOL TART25 MG PO; +MIDAZOLAM HCL 5 MG/ML VIAL ONE; +PROPOFOL IV EMULSION 10 MG/ML 20 ML VIAL ONE; +ROCURONIUM BROMIDE 10 MG/ML 5ML VIAL IV ONE; -SODIUM CHLORIDE 0.9% 50ML 50 ML ONE; +VITAMIN C500 M4 PO
[2020-01-31 12:15] VITALS: BP 115/60
--- NOTE | 2020-01-31 12:43 | Operative Report ---
DATE OF PROCEDURE: 01/31/2020 SURGEON: Ar Moser MD PROCEDURES: EGD with polypectomy and biopsies and colonoscopy with biopsies. INDICATIONS FOR EGD: Upper abdominal pain. INDICATIONS FOR COLONOSCOPY: Surveillance colonoscopy, personal history of colon polyps, history of diarrhea. MEDICATIONS: The patient was done under MAC, please see anesthesiologist's note. PROCEDURE IN DETAIL: With the patient in the left lateral decubitus position, the flexible fiberoptic Olympus gastroscope was introduced into the esophagus under direct visualization without any difficulty. There was some patchy erythema noted in distal esophagus. The scope was then advanced with ease into the stomach. Mucosa overlying the antrum and the body revealed some patchy erythema and hpar-hv-privzzpa edema, and biopsies were obtained and sent to stain for H. pylori. Multiple hyperplastic-appearing polyps were noted in the body of the stomach and several partially excised with the cold biopsy forceps. Pylorus was of normal contour and shape, was intubated with ease and the scope was advanced all the way to the second portion of the duodenum. Biopsies were obtained from the proximal second portion and duodenal bulb to rule out sprue. The scope was then withdrawn back into the stomach and retroflexed, mucosa overlying the fundus and the cardia appeared to be within normal limits. The scope was then straightened out, it was subsequently withdrawn, and the patient tolerated the procedure well. IMPRESSION: 1. Distal esophagitis, mild. 2. Gastritis, biopsied, biopsies sent to stain for Helicobacter pylori. 3. Gastric polyps, multiple, several partially excised with the cold biopsy forceps. 4. Rule out sprue. PLAN: Follow up histology. Increase Pepcid to 40 mg one p.o. b.i.d. The patient was then turned around and after adequate lubrication of the anal canal, a flexible fiberoptic Olympus colonoscope was inserted into the rectum with ease and advanced all the way to the cecum. Mucosa overlying the cecum appeared to be within normal limits. The ileocecal valve was intubated and the scope was advanced into the terminal ileum. Biopsies were obtained. The scope was then withdrawn back into the colon. It was then withdrawn slowly. Mucosa overlying the ascending and the transverse appeared to be within normal limits. Some patchy mild inflammatory changes were noted in the descending, sigmoid and rectum, and biopsies were obtained. The scope was retroflexed into the distal rectum and small internal hemorrhoids were noted, none of which was actively bleeding. The scope was then straightened out and it was subsequently withdrawn after securing an adequate stool specimen that was sent for the appropriate stool studies. The patient tolerated the procedure well. IMPRESSION: 1. Patchy mild left-sided colitis. 2. Proctitis, mild. 3. Internal hemorrhoids, none actively bleeding. PLAN: Follow up histology. Initiate VSL#3 one p.o. daily. The patient might benefit from a followup colonoscopy in 5 years. Ar Moser MD [facility] [place] /[id number] cc: Prakash Corrigan MD
[2020-01-31 14:59] LABS: WBC,FECAL (FECAL LACTOFERRIN) NEGATIVE (NEGATIVE)
[2020-02-02 12:32] LABS: C DIFFICILE TOXIN A&B AMP PROB NEGATIVE (NEGATIVE)
== END | disposition home or self-care (01) ==
LOC: OR 06:09
PROVIDERS: ATTEND Internal Medicine Gastroenterology
DX: K29.50 Unspecified chronic gastritis without bleeding (principal); Z86.010 Personal history of colon polyps; K31.7 Polyp of stomach and duodenum; K51.50 Left sided colitis without complications; K20.90 Esophagitis, unspecified without bleeding; K62.89 Other specified diseases of anus and rectum; K64.8 Other hemorrhoids; G47.33 Obstructive sleep apnea (adult) (pediatric); I10 Essential (primary) hypertension; I34.1 Nonrheumatic mitral (valve) prolapse; I45.10 Unspecified right bundle-branch block; F41.9 Anxiety disorder, unspecified; F32.9 Major depressive disorder, single episode, unspecified; Z01.810 Encounter for preprocedural cardiovascular examination; Z01.812 Encounter for preprocedural laboratory examination; Z20.828 Contact with and (suspected) exposure to other viral communicable diseases
CPT/HCPCS: 43239; 45380; 83630; 83993; 87045; 87177; 87328; 87493; 93005; J2250; J2704; J3010; U0002; 45378

== ENCOUNTER 2021-02-12 22:16 | Emergency (ER) | payer OTHER ==
[~2021-02-12] VITALS: Ht 157.5 cm; Wt 72.6 kg
[~2021-02-12 22:16] MED LIST changes: -FENTANYL CITRATE/PF 100MCG/2 ML INJ ONE; -HYOSCYAMINE 0.125 MG TAB ONE; -MIDAZOLAM HCL 5 MG/ML VIAL ONE; -PROPOFOL IV EMULSION 10 MG/ML 20 ML VIAL ONE; -ROCURONIUM BROMIDE 10 MG/ML 5ML VIAL IV ONE
[2021-02-12] MEDS ORDERED: SODIUM CHLORIDE 0.9% 1000ML 1,000 ML IV STA (22:20)
[2021-02-12] MEDS ORDERED: DONNATAL/LIDOCAINE/MAALOX 30 ML SUSP PO STA (22:20)
[2021-02-12] MEDS ORDERED: FAMOTIDINE 20 MG/2 ML VIAL IV STA (22:20)
[2021-02-12] MEDS ORDERED: ONDANSETRON HCL INJ 2MG/ML 2ML 2 MG/ML VIAL IV PRN (22:30)
[2021-02-12 22:37] LABS: BASOPHILS % 0.5 % (0.0-1.0); EOSINOPHILS % 0.7 % (0.0-6.0); HEMATOCRIT 37.4 % (34.2-44.1); HEMOGLOBIN 12.5 g/dL (12.0-16.0); LYMPHOCYTES # (AUTO) 2.5 (1.0-3.2); LYMPHOCYTES % 45.2 % (18.0-39.1); MEAN CORPUSCULAR HEMOGLOBIN 30.3 pg (28-32); MEAN CORPUSCULAR HGB CONC 33.4 g/dL (31-35); MEAN CORPUSCULAR VOLUME 90.8 fL (81-99); MONOCYTES # (AUTO) 0.5 (0.2-0.8); MONOCYTES % 9.8 % (4.4-11.3); NEUTROPHILS # (AUTO) 2.4 (2.1-6.9); NEUTROPHILS % 43.6 % (38.7-80.0); PLATELET COUNT 215 x10e3/uL (140-360); RED BLOOD COUNT 4.12 x10e6/uL (3.6-5.1)
[2021-02-12] MEDS ORDERED: LIDOCAINE VISC 2% SOLN 15 ML UDC ONE (22:53)
[2021-02-12] MEDS ORDERED: MAGNESIUM/ALUMINUM/SIMETHICONE 30 ML UDC ONE (22:54)
[2021-02-12] MEDS ORDERED: BELLADONNA ALK/PHENOBARBITAL 5 ML UDC ONE (22:54)
[2021-02-12 22:57] LABS: ALBUMIN 3.6 g/dL (3.5-5.0); ALBUMIN/GLOBULIN RATIO 1.3 (0.8-2.0); ANION GAP 13.6 mmol/L (8-16); CALCIUM 8.7 mg/dL (8.4-10.2); CREATININE, SERUM 0.91 mg/dL (0.57-1.11); POTASSIUM 3.6 mmol/L (3.5-5.1)
[2021-02-12 23:25] LABS: CLARITY,URINE CLEAR (CLEAR); COLOR,URINE YELLOW (YELLOW); KETONES,URINE NEGATIVE (NEGATIVE); LEUKOCYTE ESTERASE ,URINE TRACE (NEGATIVE); NITRITE,URINE NEGATIVE (NEGATIVE); PROTEIN,URINE DIPSTICK NEGATIVE (NEGATIVE); URINE UROBILINOGEN 0.2 mg/dL (0.2 - 1)
[2021-02-12 23:29] LABS: BACTERIA,URINE RARE /HPF; EPITHELIAL CELLS,URINE FEW /LPF; RBC,URINE 0-5 /HPF (0-5)
[2021-02-13] MEDS ORDERED: SODIUM CHLORIDE 0.9% 50ML 50 ML ONE (01:28)
[2021-02-13] MEDS ORDERED: IOPAMIDOL 370 MG/ML 200 ML INFUS..BTL INJ ONE (01:28)
[2021-02-13] MEDS ORDERED: OMEPRAZOLE40 MG PO (02:28)
[2021-02-13 02:53] VITALS: BP 147/82
== END 2021-02-13 02:56 | disposition home or self-care (01) ==
LOC: ER 22:21
DX: R10.13 Epigastric pain (principal); K29.70 Gastritis, unspecified, without bleeding; I10 Essential (primary) hypertension; E78.5 Hyperlipidemia, unspecified; K21.9 Gastro-esophageal reflux disease without esophagitis; F41.9 Anxiety disorder, unspecified; I34.1 Nonrheumatic mitral (valve) prolapse; F98.8 Other specified behavioral and emotional disorders with onset usually occurring in childhood and adolescence
CPT/HCPCS: 36415; 74177; 80053; 81001; 83690; 84484; 85025; 93005; 99284; J2405; J7030; Q9967

== ENCOUNTER → 2021-07-24 | Outpatient (CLI) | payer OTHER ==
[~2021-07-24] MED LIST changes: +OMEPRAZOLE40 MG PO
== END ==
LOC: US 07:42
PROVIDERS: ATTEND Internal Medicine Gastroenterology
DX: R10.84 Generalized abdominal pain (principal)
CPT/HCPCS: 76700

== ENCOUNTER → 2022-07-15 | Outpatient (CLI) | payer OTHER | LOC: US 08:51 | PROVIDERS: ATTEND Nurse Practitioner | DX: R10.10 Upper abdominal pain, unspecified (principal); K59.00 Constipation, unspecified; R74.8 Abnormal levels of other serum enzymes | CPT/HCPCS: 76700 ==

== ENCOUNTER → 2024-03-13 | Outpatient (REF) | payer MEDICARE ==
[~2024-03-13] MED LIST changes: +GENTAMICIN SULFA5 ML OD; +LEVSIN-SL0.125 MG SL; +ONDANSETRON ODT4 MG PO
== END ==
LOC: US 08:40
PROVIDERS: ATTEND Nurse Practitioner
DX: R10.10 Upper abdominal pain, unspecified (principal)
CPT/HCPCS: 76700

== ENCOUNTER → 2024-11-28 | Outpatient (REF) | payer MEDICARE | LOC: US 07:36 | PROVIDERS: ATTEND Nurse Practitioner | DX: R10.9 Unspecified abdominal pain (principal); K76.0 Fatty (change of) liver, not elsewhere classified | CPT/HCPCS: 76700 ==